=== PATIENT | female | born 1930 | race Caucasian/White ===

== ENCOUNTER 2017-02-10 16:24 | Emergency (ER) | payer OTHER, MEDICARE ==
[2017-02-10 16:37] VITALS: BP 177/86; PULSE 63; TEMP 97.7; BMI 22.4
--- NOTE | 2017-02-10 19:26 | PDOC ---
History of Present Illness <Sabrina Matthews - Last Filed: 02/10/17 19:34> - General History Source: Patient, Family Exam Limitations: No Limitations - History of Present Illness Initial Comments: 02/10/17 19:42 The patient is an 86-year-old female, with a significant past medical history of anemia, A.fib on coumadin, CHF, hypertension, hyperlipidemia, R THR, presenting with left side pain that began a couple of days ago. She states that the pain is intermittent and radiates down her left leg. Pt was advised to visit the ER by her PCP Dr. Long. Upon examination, the patient reports that she is also experiencing some nausea, but no vomiting and does have an itchy rash on her left side. She is compliant with all her medications. The patient denies any fever, chills, diarrhea, or abdominal pain. She denies any recent falls. Allergies: Tape adhesive Surgical Hx: 2 Hip Replacement surgeries, knee replacement surgery, pacemaker placement surgery. PCP: Dr. Long <Cathy Zapata - Last Filed: 02/10/17 19:54> - General Chief Complaint: Weakness Stated Complaint: PAIN, ACUTE/weakness Time Seen by Provider: 02/10/17 19:06 Past History - Past Medical History Anemia: No Cancer: Yes (breast ca rt) Cardiac Disorders: Yes (PACEMAKER/DEFIB) CVA: No COPD: No CHF: No Diabetes: No HTN: Yes Hypercholesterolemia: Yes - Surgical History Cardiac Surgery: Yes (PPM/ defib) Orthopedic Surgery: Yes (Bilateral Knees, L. Hip) - Psycho/Social/Smoking Cessation Hx Anxiety: No Suicidal Ideation: No Smoking Status: No Smoking History: Never smoked Have you smoked in the past 12 months: No Number of Cigarettes Smoked Daily: 0 If you are a former smoker, when did you quit?: 1963 Information on smoking cessation initiated: No Hx Alcohol Use: No Drug/Substance Use Hx: No Substance Use Type: None Hx Substance Use Treatment: No <Sabrina Matthews - Last Filed: 02/10/17 19:34> <Cathy Zapata - Last Filed: 02/10/17 19:54> - Past Medical History Allergies/Adverse Reactions: Allergies Allergy/AdvReac Type Severity Reaction Status Date / Time No Known Drug Allergies Allergy Unknown Verified 02/10/17 16:37 tape adhesive Allergy Uncoded 02/10/17 16:37 Home Medications: Ambulatory Orders Ascorbic Acid [Vitamin C] 500 mg PO DAILY 01/21/15 Calcium/Magnesium/Vit D3 [Calcium 500 mg Tablet] 1 each PO BID 01/21/15 Carvedilol Phosphate [Coreg Cr -] 12.5 mg PO BID 01/21/15 Cetirizine HCl 10 mg PO HS 01/21/15 Digoxin 125 mcg PO DAILY 01/21/15 Docusate Sodium [Colace -] 100 mg PO TID 01/21/15 Lisinopril [Prinivil] 20 mg PO BID 01/21/15 Biotin 2 tab PO DAILY 05/14/15 Ferrous Sulfate [Feosol] 1 tab PO DAILY 05/14/15 Sennosides [Senna -] 1 tab PO PRN PRN 05/14/15 Furosemide [Lasix -] 20 mg PO DAILY #30 tablet 05/16/15 Warfarin Sodium 5 mg PO DAILY #30 tablet 05/16/15 Oxycodone HCl/Acetaminophen [Percocet 5/325 -] 1 tab PO Q6H #20 tablet MDD 4 01/19 Valacyclovir HCl [Valtrex] 1,000 mg PO TID #21 tablet 02/10/17 Review of Systems - Review of Systems Able to Perform ROS?: Yes Comments:: 02/10/17 19:49 CONSTITUTIONAL: Present: loss of appetite Absent: fever, chills, diaphoresis, generalized weakness, malaise HEENT: Absent: rhinorrhea, nasal congestion, throat pain, throat swelling, difficulty swallowing, mouth swelling, ear pain, eye pain, visual Changes CARDIOVASCULAR: Absent: chest pain, syncope, palpitations, irregular heart rate, lightheadedness , peripheral edema RESPIRATORY: Absent: cough, shortness of breath, dyspnea with exertion, orthopnea, wheezing, stridor, hemoptysis GASTROINTESTINAL: Absent: abdominal pain, abdominal distension, nausea, vomiting, diarrhea, constipation, melena, hematochezia GENITOURINARY: Absent: dysuria, frequency, urgency, hesitancy, hematuria, flank pain, genital pain MUSCULOSKELETAL: Present: Left side pain. Absent: arthralgia, joint swelling SKIN: Present: itchy rash on left side Absent: pallor HEMATOLOGIC/IMMUNOLOGIC: Absent: easy bleeding, easy bruising, lymphadenopathy, frequent infections ENDOCRINE: Absent: unexplained weight gain, unexplained weight loss, heat intolerance, cold intolerance NEUROLOGIC: Absent: headache, focal weakness or paresthesias, dizziness, unsteady gait, seizure, mental status changes, bladder or bowel incontinence PSYCHIATRIC: Absent: anxiety, depression, suicidal or homicidal ideation, hallucinations. <Cathy Zapata - Last Filed: 02/10/17 19:54> *Physical Exam - Vital Signs Last Vital Signs Temp Pulse Resp BP Pulse Ox 97.7 F 63 18 177/86 99 02/10/17 16:35 02/10/17 16:35 02/10/17 16:35 02/10/17 16:35 02/10/17 16:35 <Sabrina Matthews - Last Filed: 02/10/17 19:34> - Vital Signs Last Vital Signs Temp Pulse Resp BP Pulse Ox 97.7 F 63 18 177/86 99 02/10/17 16:35 02/10/17 16:35 02/10/17 16:35 02/10/17 16:35 02/10/17 16:35 - Physical Exam Comments: 02/10/17 19:51 GENERAL: Well developed, well nourished. Awake and alert. No acute distress. HEENT: Normocephalic, atraumatic. PERRLA, EOMI. No conjunctival pallor. Sclera are non- icteric. Moist mucous membranes. Oropharynx is clear. NECK: Supple. Full ROM. No JVD. Carotid pulses 2+ and symmetric, without bruits. No thyromegaly. No lymphadenopathy. CARDIOVASCULAR: Regular rate and rhythm. No murmurs, rubs, or gallops. Distal pulses are 2+ and symmetric. PULMONARY: No evidence of respiratory distress. Lungs clear to auscultation bilaterally. No wheezing, rales or rhonchi. ABDOMINAL: Soft. Non-tender. Non-distended. No rebound or guarding. No organomegaly. Normoactive bowel sounds. MUSCULOSKELETAL Normal range of motion at all joints. No bony deformities or tenderness. No CVA tenderness. EXTREMITIES: No cyanosis. No clubbing. No edema. No calf tenderness. SKIN: (+)Left-sided shingles rash around dermatome t8. Warm and dry. Normal capillary refill. No jaundice. NEUROLOGICAL: Alert, awake, appropriate. PSYCHIATRIC: Cooperative. Good eye contact. Appropriate mood and affect. <Cathy Zapata - Last Filed: 02/10/17 19:54> Medical Decision Making - Medical Decision Making 02/10/17 19:35 Pt comes with left side pain that has been ongoing for a couple days, worse today. Pt has shingles rash in 1 to 2 dermatomes around T8 area. Pt has never had shingles in the past. SHe is compliant with all of her meds. SHe has no other complaints. Pt has no fever or chills. Rest of her exam is normal. Pt will be sent home with Valtrex 1000mg TID x 7 days and percocet for pain; pt will follow with PMD Ethan. <Sabrina Matthews - Last Filed: 02/10/17 19:34> *DC/Admit/Observation/Transfer - Discharge Dispostion Admit: No <Sabrina Matthews - Last Filed: 02/10/17 19:34> - Attestations Scribe Attestion: 02/10/17 19:54 Documentation prepared by Cathy Zapata, acting as neuropsychology medical consultant for Sabrina Matthews MD. <Cathy Zapata - Last Filed: 02/10/17 19:54> Diagnosis at time of Disposition: Shingles outbreak - Discharge Dispostion Disposition: HOME Condition at time of disposition: Stable - Prescriptions Prescriptions: Oxycodone HCl/Acetaminophen [Percocet 5/325 -] 1 tab PO Q6H #20 tablet MDD 4 Valacyclovir HCl [Valtrex] 1,000 mg PO TID #21 tablet - Referrals Referrals: Silvestre Long MD [Primary Care Provider] - - Patient Instructions Printed Discharge Instructions: Herpes Zoster Vaccine, Shingles (Zoster) Vaccine
[2017-02-10] MEDS ORDERED: valACYclovir HCL 1000 MG TABLET PO ONE (19:27)
--- NOTE | 2017-02-11 09:22 | EKG ---
Test Reason : Blood Pressure : / mmHG Vent. Rate : 063 BPM Atrial Rate : 357 BPM P-R Int : 000 ms QRS Dur : 168 ms QT Int : 476 ms P-R-T Axes : 074 263 064 degrees QTc Int : 487 ms Ventricular-paced rhythm Biventricular pacemaker detected ABNORMAL ECG Confirmed by MD RAMA, CORNEL ([id number]) on 02/11/2017 9:22:18 AM Referred By: Confirmed By:CORNEL ONTIVEROS MD
== END 2017-02-10 20:22 | disposition home or self-care (01) ==
LOC: JER 16:24
DX: B02.9 Zoster without complications (principal); I25.10 Atherosclerotic heart disease of native coronary artery without angina pectoris; I11.0 Hypertensive heart disease with heart failure; Z95.810 Presence of automatic (implantable) cardiac defibrillator; I48.91 Unspecified atrial fibrillation; Z79.01 Long term (current) use of anticoagulants; E78.00 Pure hypercholesterolemia, unspecified; Z96.641 Presence of right artificial hip joint
CPT/HCPCS: 81003; 93005; 93010; 99283-25

== ENCOUNTER 2017-02-15 16:07 | Emergency (ER) | payer OTHER, MEDICARE ==
[2017-02-15] MEDS ORDERED: SODIUM CHLORIDE 250 ML IV STA ×2 (16:15→17:21)
--- NOTE | 2017-02-15 16:16 | PDOC ---
History of Present Illness - History of Present Illness Initial Comments: 02/15/17 18:06 History of Present Illness: 86 y/o F with a PMHx of HTN, hypercholesterolemia, breast CA, Afib, pacemaker presents to the ED with AMS since yesterday. Patients daughter states she has become increasingly confused and weak. Patient also reports neck pain. Patient presented to the ED on 02/10 for left sided pain from shingles and was discharged on Valtrex. She was seen by PCP today, who sent her to the ED for low BP. Patient lives alone, but daughter sees her daily. Patients daughter denies history of strokes or brain injuries. PCP: Dr. Silvestre Long Review of Systems: CONSTITUTIONAL: (+) weakness. Absent: fever, chills. EYES: Absent: visual changes ENT: Absent: ear pain, sore throat CARDIOVASCULAR: (+) low BP. Absent: chest pain, palpitations RESPIRATORY: Absent: cough, SOB GI: Absent: abdominal pain, nausea, vomiting, constipation, diarrhea GENITOURINARY: Absent: dysuria, frequency, hematuria MUSCULOSKELETAL: (+) neck pain. Absent: back pain, arthralgia, myalgia SKIN: Absent: rash NEURO: (+) AMS, confusion. Absent: headache Physical Exam: GENERAL: Patient is alert and oriented but complaining of mild generalized weakness and fatigue. She is fully responsive and coherent. Orthostatics: sitting 102/60, supine 168/61. HEENT: Head is atraumatic, PERRL, fundi benign, ENT clear. NECK: Supple without bruits or nodes. CARDIOVASCULAR: 50 and regular, without murmurs, rub or gallops. Pulses full and symmetric, no JVD or edema. PULMONARY: Clear to auscultation bilaterally. ABDOMEN: Soft, non-distended, non-tender. No masses or organomegaly. EXTREMITIES: Normal ROM in all four extremities. No gross deformities. SKIN: Warm, dry. No rash NEUROLOGICAL: Cranial nerves II-XII intact. No focal sensory or motor deficits. Strength appears to be full and symmetric. <Lianet Dale - Last Filed: 02/15/17 18:28> <Jorge Luis Ibarra - Last Filed: 02/15/17 19:09> - General Chief Complaint: Weakness Stated Complaint: WEAKNESS SLIGHT CONFUSION AND PAIN TO NECK Time Seen by Provider: 02/15/17 16:13 Past History <DaleJoviLianet A - Last Filed: 02/15/17 18:28> - Past Medical History Anemia: No Cancer: Yes (breast ca rt) Cardiac Disorders: Yes (PACEMAKER/DEFIB) CVA: No COPD: No CHF: No Diabetes: No HTN: Yes Hypercholesterolemia: Yes - Surgical History Cardiac Surgery: Yes (PPM/ defib) Orthopedic Surgery: Yes (Bilateral Knees, L. Hip) - Psycho/Social/Smoking Cessation Hx Anxiety: No Suicidal Ideation: No Smoking Status: No Smoking History: Never smoked Have you smoked in the past 12 months: No Number of Cigarettes Smoked Daily: 0 If you are a former smoker, when did you quit?: 1963 Hx Alcohol Use: No Drug/Substance Use Hx: No Substance Use Type: None Hx Substance Use Treatment: No <Jorge Luis Ibarra - Last Filed: 02/15/17 19:09> - Past Medical History Allergies/Adverse Reactions: Allergies Allergy/AdvReac Type Severity Reaction Status Date / Time Latex, Natural Rubber Allergy Mild Itching Verified 02/15/17 17:21 No Known Drug Allergies Allergy Unknown Verified 02/15/17 16:09 tape adhesive Allergy Mild Itching Uncoded 02/15/17 16:10 Home Medications: Ambulatory Orders Ascorbic Acid [Vitamin C] 500 mg PO DAILY 01/21/15 Calcium/Magnesium/Vit D3 [Calcium 500 mg Tablet] 1 each PO BID 01/21/15 Carvedilol Phosphate [Coreg Cr -] 12.5 mg PO BID 01/21/15 Cetirizine HCl 10 mg PO HS 01/21/15 Digoxin 125 mcg PO DAILY 01/21/15 Docusate Sodium [Colace -] 100 mg PO TID 01/21/15 Biotin 2 tab PO DAILY 05/14/15 Ferrous Sulfate [Feosol] 1 tab PO DAILY 05/14/15 Sennosides [Senna -] 1 tab PO PRN PRN 05/14/15 Valacyclovir HCl [Valtrex] 1,000 mg PO TID #21 tablet 02/10/17 Levothyroxine [Synthroid -] 25 mcg PO DAILY 02/15/17 Sulfamethoxazole/Trimethoprim [Bactrim Ds -] 1 tab PO DAILY 02/15/17 *Physical Exam - Vital Signs Last Vital Signs Temp Pulse Resp BP Pulse Ox 98.8 F 50 L 20 168/61 96 02/15/17 16:09 02/15/17 17:11 02/15/17 16:09 02/15/17 17:11 02/15/17 16:09 <Lianet Dale - Last Filed: 02/15/17 18:28> ED Treatment Course - LABORATORY CBC & Chemistry Diagram: 02/15/17 16:38 02/15/17 16:38 - ADDITIONAL ORDERS Additional order review: Laboratory Results 02/15/17 02/15/17 02/15/17 17:36 16:38 16:38 INR 4.39 H* Sodium 134 L Potassium 5.2 H Chloride 101 Carbon Dioxide 24 Anion Gap 9 BUN 51 H Creatinine 1.6 H Creat Clearance w eGFR 30.63 Random Glucose 120 H Calcium 9.5 Total Bilirubin 0.8 AST 44 H ALT 24 Alkaline Phosphatase 57 Creatine Kinase 164 Creatine Kinase Index 4.0 CK-MB (CK-2) 6.6 H Troponin I 0.04 Total Protein 7.2 Albumin 4.1 Urine Color Yellow Urine Appearance Slightly Urine pH 5.5 Ur Specific [place] 1.015 Urine Protein Negative Urine Glucose (UA) Negative Urine Ketones Negative Urine Blood Negative Urine Nitrite Negative Urine Bilirubin Negative Urine Urobilinogen 0.2 02/15/17 16:38 RBC 4.03 MCV 94.0 MCHC 34.1 RDW 13.6 MPV 8.6 Neutrophils % 57.6 Lymphocytes % 24.4 Monocytes % 13.4 H Eosinophils % 4.1 Basophils % 0.5 - Medications Given in the ED: ED Medications Discontinued Medications Generic Name Dose Route Start Last Admin Trade Name Lola PRN Reason Stop Dose Admin Sodium Chloride 250 mls @ 500 mls/hr 02/15/17 16:15 02/15/17 17:00 Normal Saline - IV 02/15/17 16:44 500 mls/hr ASDIR STA Administration Sodium Chloride 250 mls @ 500 mls/hr 02/15/17 17:21 02/15/17 17:28 Normal Saline - IV 02/15/17 17:50 500 mls/hr ASDIR STA Administration <Lianet Dale - Last Filed: 02/15/17 18:28> - LABORATORY CBC & Chemistry Diagram: 02/15/17 16:38 02/15/17 16:38 <Jorge Luis Ibarra - Last Filed: 02/15/17 19:09> Medical Decision Making - Medical Decision Making 02/15/17 18:17 Patient significantly orthostatic, probably as a result of antihypertensive medication and diuretics. BUN 51, creatinine 1.6, a little worse than usual. After 500 mL of intravenous saline, she felt much better, was fully alert and had much more energy. Weakness and fatigue had resolved. Mental status appears to be completely intact, and her daughter, who sees her daily, agrees that she is back to baseline. INR was 4.39. She was instructed to hold Coumadin, as well as lisinopril and furosemide, until further instructions by her primary physician on Monday. She and her daughter are aware that she must be seen on Monday to further evaluate her metabolic status. She is ambulatory and in no pain or other distress upon discharge with her daughter to follow-up as directed. EKG shows a regular rhythm of 50/m, ventricular pacer with complete capture. 02/15/17 18:19 02/15/17 18:20 02/15/17 18:23 <Jorge Luis Ibarra - Last Filed: 02/15/17 19:09> *DC/Admit/Observation/Transfer - Attestations Scribe Attestion: 02/15/17 18:06 Documentation prepared by Lianet Dale, acting as medical review specialist for Jorge Luis Harris MD. <Lianet Dale - Last Filed: 02/15/17 18:28> - Discharge Dispostion Admit: No <Jorge Luis Ibarra - Last Filed: 02/15/17 19:09> Diagnosis at time of Disposition: Dehydration, Supratherapeutic INR - Discharge Dispostion Disposition: HOME Condition at time of disposition: Improved - Patient Instructions Additional Instructions: Do not take your warfarin (Coumadin), furosemide (Lasix), or lisinopril until rechecked and recommended by primary physician Dr. Long. You should see him on Monday and have blood work repeated. You are at risk of bleeding and further dehydration. You may need to restart these medications at some point in the future when your condition stabilizes and when your doctor feels it is appropriate. You will need close observation and follow-up.
[2017-02-15 16:34] VITALS: TEMP 98.8; BMI 23.0
[2017-02-15 17:10] LABS: PROTHROMBIN TIME (PATIENT) 47.8 SEC (10.2-13.0)
[2017-02-15 17:16] LABS: INR 4.39 (0.82-1.09)
[2017-02-15 17:22] LABS: BASOPHIL 0.5 % (0-2.0); EOSINOPHIL 4.1 % (0-4.5); MCHC 34.1 g/dl (32.0-36.0); MEAN PLT VOLUME 8.6 fl (7.5-11.1); NEUTROPHILS 57.6 % (42.8-82.8); PLATELET COUNT 179 K/MM3 (134-434); RDW 13.6 % (11.6-15.6); WHITE BLOOD COUNT 6.2 K/mm3 (4.0-10.8)
[2017-02-15 17:26] LABS: TROPONIN I (DFP) 0.04 ng/ml (0.03-0.50)
[2017-02-15 17:35] LABS: ALBUMIN 4.1 g/dl (3.5-5.0); ALK PHOS 57 U/L (32-92); ANION GAP 9 (8-16); BILIRUBIN,TOTAL 0.8 mg/dl (0.2-1.0); CALCIUM 9.5 mg/dl (8.4-10.2); CO2 24 mmol/L (22-28); CPK 164 IU/L (26-192); CREATININE 1.6 mg/dl (0.6-1.3); GLUCOSE,RANDOM 120 mg/dl (74-106); SGOT/AST 44 U/L (10-42); SGPT/ALT 24 U/L (10-40); TOT PROT 7.2 g/dl (6.4-8.3)
[2017-02-15 17:46] LABS: PH,URINE 5.5 (4.5-8); URINE APPEARANCE Slightly; URINE BILIRUBIN Negative (NEGATIVE); URINE BLOOD Negative (NEGATIVE); URINE GLUCOSE (UA) Negative (NEGATIVE); URINE KETONE Negative (NEGATIVE); URINE LEUK ESTERASE Negative (NEGATIVE); URINE NITRITE Negative (NEGATIVE); URINE PROTEIN Negative (NEGATIVE); URINE UROBILINOGEN 0.2 (0.2-1.0)
[2017-02-15 17:47] LABS: URINE COLOR YELLOW
[2017-02-15 18:37] VITALS: BP 154/67; PULSE 52
--- NOTE | 2017-02-16 13:09 | EKG ---
Test Reason : Blood Pressure : / mmHG Vent. Rate : 050 BPM Atrial Rate : 040 BPM P-R Int : 000 ms QRS Dur : 162 ms QT Int : 484 ms P-R-T Axes : 000 252 070 degrees QTc Int : 441 ms Ventricular-paced rhythm Biventricular pacemaker detected Underlying rhythm is coarse atrial fibrillation ABNORMAL ECG WHEN COMPARED WITH ECG OF 10-FEB-2017 16:35, VENT. RATE HAS DECREASED BY 13 BPM Confirmed by HOOD REED MD ([id number] on 02/16/2017 1:08:48 PM Referred By: MD GUIDRY Confirmed By:HOOD REED MD
== END 2017-02-15 19:24 | disposition home or self-care (01) ==
LOC: FER 16:07
PROC: 3E0337Z Introduction of Electrolytic and Water Balance Substance into Peripheral Vein, Percutaneous Approach (ICD-10-PCS; principal; 2017-02-15)
DX: E86.0 Dehydration (principal); R79.1 Abnormal coagulation profile; I10 Essential (primary) hypertension; E78.00 Pure hypercholesterolemia, unspecified; Z85.3 Personal history of malignant neoplasm of breast; I48.91 Unspecified atrial fibrillation; Z95.810 Presence of automatic (implantable) cardiac defibrillator; Z91.040 Latex allergy status
CPT/HCPCS: 36415; 70450-TC; 71010-TC; 80053; 81003; 82553; 84484; 85025; 85610; 93005; 99285-25

== ENCOUNTER 2018-08-15 11:07 | Inpatient (IN) | payer OTHER, MEDICARE ==
[2018-08-14 11:53] VITALS: BMI 21.2
[2018-08-15 11:45] LABS: INR 1.52 (0.83-1.09)
[2018-08-15] MEDS ORDERED: BENZOIN TINCTURE SWABSTICK TP ONE (12:27)
[2018-08-15] MEDS ORDERED: MINERAL OIL 25 ML OIL ONE (12:27)
[2018-08-15] MEDS ORDERED: BACITRACIN 15 GM TUBE TOPICAL OINTMENT ONE ×2 (12:27→14:24)
[2018-08-15] MEDS ORDERED: DEXAMETHASONE SOD PHOSPHATE 4 MG/1 ML VIAL ONE ×2 (12:41→14:45)
[2018-08-15] MEDS ORDERED: ONDANSETRON 4 MG/2 ML VIAL ONE ×2 (12:41→14:45)
[2018-08-15] MEDS ORDERED: LIDOCAINE HCL/PF 2% SDV 5ML VIAL ONE (12:41)
[2018-08-15] MEDS ORDERED: DESFLURANE GAS 240 ML BOTTLE IH ONE (13:05)
[2018-08-15] MEDS ORDERED: SEVOFLURANE 250 ML BTL ONE (13:05)
[2018-08-15] MEDS ORDERED: SODIUM CHLORIDE 0.9% P/F 10 ML VIAL IJ ONE (13:27)
[2018-08-15] MEDS ORDERED: ceFAZolin SODIUM 1 GM VIAL ONE (13:27)
[2018-08-15] MEDS ORDERED: ceFAZolin SODIUM 1 GM VIAL IVPB ONE (13:29)
[2018-08-15] MEDS ORDERED: ONDANSETRON 4 MG/2 ML VIAL IVPUSH PRN (13:36)
[2018-08-15] MEDS ORDERED: PROMETHAZINE HCL 25 MG/1 ML VIAL IVPB PRN (13:36)
[2018-08-15] MEDS ORDERED: LACTATED RINGERS SOLUTION 1,000 ML IV SCH (13:45)
[2018-08-15] MEDS ORDERED: LIDOCAINE 1%-EPI 1:100,000 30 ML MDV IJ ONE (13:49)
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
[2018-08-15] MEDS ORDERED: SENNOSIDES 8.6MG TABLET (FP) PO PRN (18:30)
[2018-08-15] MEDS ORDERED: ACETAMINOPHEN 325 MG TABLET (FP) PO PRN (19:00)
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
[2018-08-15 19:40] LABS: BASO % 0.6 % (0-2.0); EOS % 0.6 % (0-4.5); HEMATOCRIT 35.4 % (32.4-45.2); LYMPH % 10.3 % (8-40); MCH 32.5 pg (25.7-33.7); MCHC 33.9 g/dl (32.0-36.0); MEAN CELL VOLUME 95.7 fl (80-96); MEAN PLT VOLUME 8.3 fl (7.5-11.1); MONO % 2.7 % (3.8-10.2); NEUT % 85.8 % (42.8-82.8); PLATELET COUNT 167 K/MM3 (134-434); RBC 3.69 M/mm3 (3.60-5.2); RDW 16.2 % (11.6-15.6); WHITE BLOOD COUNT 4.5 K/mm3 (4.0-10.0)
[2018-08-15 20:08] LABS: ALK PHOS 110 U/L (45-117); ANION GAP 6 MMOL/L (8-16); BILIRUBIN,TOTAL 0.5 mg/dL (0.2-1); BLOOD UREA NITROGEN 34 mg/dL (7-18); CALCIUM 8.7 mg/dL (8.5-10.1); CHLORIDE 105 mmol/L (98-107); CO2 30 mmol/L (21-32); GLUCOSE,RANDOM 137 mg/dL (74-106); MAGNESIUM 2.1 mg/dL (1.8-2.4); PHOSPHOROUS 3.9 mg/dL (2.5-4.9); POTASSIUM 4.3 mmol/L (3.5-5.1); SGOT/AST 25 U/L (15-37); SGPT/ALT 22 U/L (13-61); SODIUM 141 mmol/L (136-145); TOT PROT 6.3 g/dl (6.4-8.2)
[2018-08-15] MEDS ORDERED: CARVEDILOL 25 MG TABLET (FP) PO SCH (22:00)
[2018-08-15] MEDS: MUPIROCIN 2% TOPICAL OINTMENT 22 GM TUBE TP SCH (22:00)
[2018-08-15] MEDS: LISINOPRIL 5 MG TABLET (FP) PO SCH (22:18)
[2018-08-15] MEDS: CARVEDILOL 25 MG TABLET (FP) PO SCH (22:18)
[2018-08-16] MEDS: LEVOTHYROXINE NA 25 MCG TABLET (FP) PO SCH (06:45)
[2018-08-16 07:40] LABS: BASO % 0.3 % (0-2.0); EOS % 0.2 % (0-4.5); HEMATOCRIT 30.5 % (32.4-45.2); HEMOGLOBIN 10.3 GM/dL (10.7-15.3); LYMPH % 13.1 % (8-40); MCH 32.1 pg (25.7-33.7); MCHC 33.8 g/dl (32.0-36.0); MEAN CELL VOLUME 95.2 fl (80-96); MEAN PLT VOLUME 8.1 fl (7.5-11.1); MONO % 11.2 % (3.8-10.2); NEUT % 75.2 % (42.8-82.8); PLATELET COUNT 160 K/MM3 (134-434); RBC 3.21 M/mm3 (3.60-5.2); WHITE BLOOD COUNT 5.2 K/mm3 (4.0-10.0)
[2018-08-16 07:56] LABS: INR 1.32 (0.83-1.09); PROTHROMBIN TIME (PATIENT) 15.6 SEC (9.7-13.0)
[2018-08-16 08:08] LABS: ALBUMIN 2.3 g/dl (3.4-5.0); ALK PHOS 84 U/L (45-117); ANION GAP 3 MMOL/L (8-16); BILIRUBIN,TOTAL 0.4 mg/dL (0.2-1); BLOOD UREA NITROGEN 44 mg/dL (7-18); CALCIUM 8.2 mg/dL (8.5-10.1); CHLORIDE 106 mmol/L (98-107); CO2 30 mmol/L (21-32); CREATININE 0.9 mg/dL (0.55-1.3); GLUCOSE,RANDOM 96 mg/dL (74-106); MAGNESIUM 2.1 mg/dL (1.8-2.4); PHOSPHOROUS 3.8 mg/dL (2.5-4.9); POTASSIUM 4.4 mmol/L (3.5-5.1); SGOT/AST 17 U/L (15-37); SGPT/ALT 16 U/L (13-61); SODIUM 140 mmol/L (136-145); TOT PROT 5.2 g/dl (6.4-8.2)
--- NOTE | 2018-08-16 09:50 | PN ---
Progress Note (short form) - Note Progress Note: Hospitalist to document today. I would ask Dr. Ngo if it is acceptable to start heparin until Coumadin can be resumed due to A. Fib.
[2018-08-16] MEDS ORDERED: PATIENT'S OWN MEDICATION (NON-FORMULARY) (Biotin [Biotin] 5,000 MCG) PO SCH (10:00)
[2018-08-16] MEDS: MUPIROCIN 2% TOPICAL OINTMENT 22 GM TUBE TP SCH ×3 (10:10→21:32)
[2018-08-16] MEDS: CARVEDILOL 25 MG TABLET (FP) PO SCH ×2 (10:28→21:31)
[2018-08-16] MEDS: DOCUSATE SODIUM 100 MG CAPSULE (FP) PO SCH ×2 (10:28→21:31)
[2018-08-16] MEDS: LORATADINE 10 MG TABLET PO SCH (10:28)
[2018-08-16] MEDS: LISINOPRIL 5 MG TABLET (FP) PO SCH ×2 (10:30→21:31)
[2018-08-16] MEDS: ASCORBIC ACID 500 MG TABLET (FP) PO SCH (10:30)
[2018-08-16] MEDS: GABAPENTIN 300 MG CAPSULE (FP) PO SCH (10:30)
[2018-08-16] MEDS: CHOLECALCIFEROL (VIT D3) 1,000 UNIT (25 MCG) TABLET PO SCH (10:31)
[2018-08-16] MEDS: COLLAGENASE CLOSTRIDIUM HIST. 30 GRAMS TUBE TP SCH (11:53)
[2018-08-16] MEDS: SILVER SULFADIAZINE 1% TOP CREAM 50 GM JAR TP SCH (11:53)
--- NOTE | 2018-08-16 15:12 | PN ---
Physical Exam: SUBJECTIVE: Patient seen and examined, denies any leg pain, dyspnea, dizziness, bleeding or new concerns. Feels well. OBJECTIVE: Vital Signs Period Temp Pulse Resp BP Sys/Alvares Pulse Ox Last 24 Hr 97.6 F-99.4 F 50-60 10-20 113-176/50-89 98-100 Intake & Output 08/13/18 08/14/18 08/15/18 08/16/18 23:59 23:59 23:59 23:59 Intake Total 1160 260 Output Total 10 Balance 1150 260 Weight 140 lb 163 lb GENERAL: sitting in bed in no acute distress Chest: CTAB, no rales or wheezing Neck: soft, supple, no JVD Abdomen:Soft, NT, ND, positive bowel sounds Extremities: LLE wound with vac, left thigh wound with blood soaked dressing, no active bleeding noted, RLE wound with no active bleed or discharge, positive varicosities, warm and well perfused Skin: mild pallor Laboratory Results - last 24 hr 08/15/18 08/15/18 08/16/18 16:30 16:30 06:00 WBC 4.5 5.2 RBC 3.69 3.21 L Hgb 12.0 10.3 L Hct 35.4 30.5 L MCV 95.7 95.2 MCH 32.5 32.1 MCHC 33.9 33.8 RDW 16.2 H 16.0 H Plt Count 167 160 MPV 8.3 8.1 Absolute Neuts (auto) 3.9 4.0 Neutrophils % 85.8 H D 75.2 Lymphocytes % 10.3 D 13.1 D Monocytes % 2.7 L 11.2 H D Eosinophils % 0.6 D 0.2 Basophils % 0.6 0.3 Nucleated RBC % 0 0 PT with INR INR Sodium 141 Potassium 4.3 Chloride 105 Carbon Dioxide 30 Anion Gap 6 L BUN 34 H Creatinine 1.0 Creat Clearance w eGFR 52.57 Random Glucose 137 H Calcium 8.7 Phosphorus 3.9 Magnesium 2.1 Total Bilirubin 0.5 AST 25 ALT 22 Alkaline Phosphatase 110 Total Protein 6.3 L Albumin 3.0 L 08/16/18 08/16/18 06:00 06:00 WBC RBC Hgb Hct MCV MCH MCHC RDW Plt Count MPV Absolute Neuts (auto) Neutrophils % Lymphocytes % Monocytes % Eosinophils % Basophils % Nucleated RBC % PT with INR 15.60 H INR 1.32 H Sodium 140 Potassium 4.4 Chloride 106 Carbon Dioxide 30 Anion Gap 3 L BUN 44 H Creatinine 0.9 Creat Clearance w eGFR 59.37 Random Glucose 96 Calcium 8.2 L Phosphorus 3.8 Magnesium 2.1 Total Bilirubin 0.4 AST 17 ALT 16 Alkaline Phosphatase 84 Total Protein 5.2 L Albumin 2.3 L Active Medications Home Medications Medication Instructions Recorded Ascorbic Acid [Vitamin C] 500 mg PO DAILY 01/21/15 Calcium/Magnesium/Vit D3 [Calcium 1 each PO BID 01/21/15 500 mg Tablet] Carvedilol Phosphate [Coreg Cr -] 25 mg PO BID 01/21/15 Biotin 5,000 mcg PO DAILY 05/14/15 Sennosides [Senna -] 1 tab PO PRN PRN 05/14/15 Levothyroxine [Synthroid -] 0.025 mcg PO DAILY 02/15/17 Sulfamethoxazole/Trimethoprim 1 tab PO DAILY 02/15/17 [Bactrim Ds -] Collagenase Clostridium Hist. 1 applic TP DAILY 7 Days #7 applic 08/01/18 [Santyl -] Mupirocin Ointment [Bactroban 2% 1 tube TP BID 14 Days #1 applic NS 08/01/18 Ointment -] Silver Sulfadiazine 1% Top Cr 1 applic TP DAILY 7 Days #1 jar 08/01/18 [Silvadene -] levoFLOXacin [Levaquin -] 500 mg PO DAILY #14 tablet 08/01/18 Cetirizine HCl [Zyrtec -] 10 mg PO DAILY 08/14/18 Cholecalciferol (Vitamin D3) 1,000 unit PO DAILY 08/14/18 [Vitamin D3 -] Digoxin [Lanoxin -] 0.125 mg PO ASDIR 08/14/18 Furosemide [Lasix -] 20 mg PO ASDIR 08/14/18 Furosemide [Lasix -] 40 mg PO ASDIR 08/14/18 Gabapentin [Neurontin -] 300 mg PO DAILY 08/14/18 Lisinopril [Zestril] 2.5 mg PO BID 08/14/18 Warfarin Na [Coumadin Protocol] 1 each PO ASDIR 08/14/18 Active Medications Acetaminophen (Tylenol -) 650 mg PO Q4H PRN PRN Reason: PAIN LEVEL 1-5 Ascorbic Acid (Vitamin C -) 500 mg PO DAILY [facility] Last Admin: 08/16/18 10:30 Dose: 500 mg Carvedilol (Coreg -) 25 mg PO BID [facility] Last Admin: 08/16/18 10:28 Dose: 25 mg Cholecalciferol (Vitamin D3 -) 1,000 unit PO DAILY [facility] Last Admin: 08/16/18 10:31 Dose: 1,000 unit Collagenase (Santyl -) 1 applic TP DAILY [facility]; Protocol Last Admin: 08/16/18 11:53 Dose: Not Given Digoxin (Lanoxin -) 0.125 mg PO Q48H [facility] Docusate Sodium (Colace -) 100 mg PO BID [facility] Last Admin: 08/16/18 10:28 Dose: 100 mg Furosemide (Lasix -) 40 mg PO DAILY [facility] Gabapentin (Neurontin -) 300 mg PO DAILY [facility] Last Admin: 08/16/18 10:30 Dose: 300 mg Levothyroxine Sodium (Synthroid -) 25 mcg PO DAILY@0700 [facility] Last Admin: 08/16/18 06:45 Dose: 25 mcg Lisinopril (Prinivil) 2.5 mg PO BID [facility] Last Admin: 08/16/18 10:30 Dose: 2.5 mg Loratadine (Claritin -) 10 mg PO DAILY [facility] Last Admin: 08/16/18 10:28 Dose: 10 mg Mupirocin (Bactroban 2% Ointment -) 1 applic TP BID [facility] Last Admin: 08/16/18 12:00 Dose: Not Given Ondansetron HCl (Zofran Injection) 4 mg IVPUSH Q6H PRN PRN Reason: NAUSEA AND/OR VOMITING Promethazine HCl (Phenergan Injection -) 12.5 mg IVPB Q6H PRN PRN Reason: NAUSEA-FOR RESCUE AFTER 15 MIN Senna (Senna -) 1 tab PO DAILY PRN PRN Reason: CONSTIPATION Silver Sulfadiazine (Silvadene -) 1 applic TP DAILY [facility] Last Admin: 08/16/18 11:53 Dose: Not Given ASSESSMENT/PLAN: 87 yof with PMHx of afib on coumadin, chronic systolic HF (EF 45%), s/p PPM/ICD , herpes, HTN, CKD, with 3rd degree wiseman bilateral lower extremities s/p excisional debridement and graft/wound vac placement -Bilateral lower extremities 3rd degree wiseman s/p excisional debridement with skin grafting and LLE wound vac placement -Acute anemia, suspect from surgical blood loss and wound oozing -Afib on coumadin -Chronic systolic HF EF 45% -s/p PPM/ICD -HTN -Herpes Shingles -CKD Plan: Wound care/Wound vac care per Dr. Ngo Discuss with Dr. Ngo when ok to start heparin. resume lasix at 40 mg daily for now. Continue coreg/digoxin/lisinopril. Continue levothyroxine/gabapentin. DVTPPX per surgery PT eval. Dispo pending wound management and surgical plans. May need SNF if d/lea with wound vac. discussed with CM Plan discussed with patient and son at bedside in detail, all questions answered. Visit type - Emergency Visit Emergency Visit: No - New Patient This patient is new to me today: No - Critical Care Critical Care patient: No - Discharge Referral Referred to [facility] Med P.C.: No
[2018-08-17] MEDS: LEVOTHYROXINE NA 25 MCG TABLET (FP) PO SCH (06:57)
[2018-08-17 07:39] LABS: HEMATOCRIT 33.2 % (32.4-45.2); HEMOGLOBIN 11.3 GM/dL (10.7-15.3); MEAN CELL VOLUME 97.1 fl (80-96); PLATELET COUNT 163 K/MM3 (134-434); RBC 3.42 M/mm3 (3.60-5.2); RDW 16.3 % (11.6-15.6); WHITE BLOOD COUNT 5.9 K/mm3 (4.0-10.0)
[2018-08-17 07:54] LABS: INR 1.44 (0.83-1.09)
--- NOTE | 2018-08-17 09:47 | PN ---
Progress Note (short form) - Note Progress Note: Hospitalist to document today. 5 days off anticoagulation and postop with A.Fib; must consider at least IV heparin today. 5 days no BM: Miralax Await F/U Surgeon
[2018-08-17] MEDS ORDERED: FUROSEMIDE 40 MG TABLET (FP) PO SCH ×2 (10:00→12:02)
[2018-08-17] MEDS: LORATADINE 10 MG TABLET PO SCH ×2 (10:39→10:55)
[2018-08-17] MEDS: LISINOPRIL 5 MG TABLET (FP) PO SCH ×2 (10:39→22:34)
[2018-08-17] MEDS: CARVEDILOL 25 MG TABLET (FP) PO SCH ×2 (10:39→22:34)
[2018-08-17] MEDS: GABAPENTIN 300 MG CAPSULE (FP) PO SCH (10:40)
[2018-08-17] MEDS: DOCUSATE SODIUM 100 MG CAPSULE (FP) PO SCH ×2 (10:41→22:34)
[2018-08-17] MEDS: ASCORBIC ACID 500 MG TABLET (FP) PO SCH (10:41)
[2018-08-17] MEDS: CHOLECALCIFEROL (VIT D3) 1,000 UNIT (25 MCG) TABLET PO SCH (10:41)
[2018-08-17] MEDS: POLYETHYLENE GLYCOL 3350 119 GM BTL PO SCH (10:41)
[2018-08-17] MEDS: MUPIROCIN 2% TOPICAL OINTMENT 22 GM TUBE TP SCH ×2 (10:55→22:34)
--- NOTE | 2018-08-17 12:06 | PN ---
Physical Exam: SUBJECTIVE: Patient seen and examined, no pain or concerns. No dyspnea, tolerating diet well. OBJECTIVE: Vital Signs Period Temp Pulse Resp BP Sys/Alvares Pulse Ox Last 24 Hr 97.7 F-99.4 F 50-55 18-20 113-161/51-75 98 Intake & Output 08/14/18 08/15/18 08/16/18 08/17/18 23:59 23:59 23:59 23:59 Intake Total 1160 270 10 Output Total 10 Balance 1150 270 10 Weight 140 lb 163 lb 153 lb 12.8 oz Telemetry: V-paced rhythm GENERAL: The patient is awake, alert, and fully oriented, in no acute distress. HEAD: Normal with no signs of trauma. EYES: PERRL, extraocular movements intact, sclera anicteric, conjunctiva clear. No ptosis. ENT: Ears normal, nares patent, oropharynx clear without exudates, moist mucous membranes. NECK: Trachea midline, full range of motion, supple. LUNGS: Breath sounds equal, clear to auscultation bilaterally, no wheezes, no crackles, no accessory muscle use. HEART: Regular rate and rhythm, S1, S2 ABDOMEN: Soft, nontender, nondistended, normoactive bowel sounds, no guarding, no rebound EXTREMITIES: Right leg wound with no active bleed or discharge, clean dressing, LLE wounds -lower 1/3rd with wound vac, no active bleed or leak, left thigh, blood soaked dressing, no active bleeding or discharge noted, positive varicositis PSYCH: Normal mood, normal affect. SKIN: Warm, dry, normal turgor, no rashes or lesions noted Laboratory Results - last 24 hr 08/17/18 08/17/18 06:50 06:50 WBC 5.9 RBC 3.42 L Hgb 11.3 Hct 33.2 MCV 97.1 H MCH 33.0 MCHC 34.0 RDW 16.3 H Plt Count 163 MPV 8.0 PT with INR 17.00 H INR 1.44 H Active Medications Generic Name Dose Route Start Last Admin Trade Name Freq PRN Reason Stop Dose Admin Acetaminophen 650 mg 08/15/18 19:00 Tylenol - PO Q4H PRN PAIN LEVEL 1-5 Ascorbic Acid 500 mg 08/16/18 10:00 08/17/18 10:41 Vitamin C - PO 500 mg DAILY [facility] Administration Carvedilol 25 mg 08/15/18 22:00 08/17/18 10:39 Coreg - PO 25 mg BID [facility] Administration Cholecalciferol 1,000 unit 08/16/18 10:00 08/17/18 10:41 Vitamin D3 - PO 1,000 unit DAILY [facility] Administration Collagenase 1 applic 08/16/18 10:00 08/16/18 11:53 Santyl - TP Not Given DAILY [facility] Protocol Digoxin 0.125 mg 08/17/18 10:00 Lanoxin - PO Q48H [facility] Docusate Sodium 100 mg 08/16/18 10:00 08/17/18 10:41 Colace - PO 100 mg BID [facility] Administration Furosemide 20 mg 08/17/18 12:02 Lasix - PO DAILY [facility] Gabapentin 300 mg 08/16/18 10:00 08/17/18 10:40 Neurontin - PO 300 mg DAILY [facility] Administration Levothyroxine Sodium 25 mcg 08/16/18 07:00 08/17/18 06:57 Synthroid - PO 25 mcg DAILY@0700 [facility] Administration Lisinopril 2.5 mg 08/15/18 22:00 08/17/18 10:39 Prinivil PO 2.5 mg BID [facility] Administration Loratadine 10 mg 08/16/18 10:00 08/17/18 10:39 Claritin - PO 10 mg DAILY [facility] Administration Mupirocin 1 applic 08/15/18 22:00 08/16/18 21:32 Bactroban 2% Ointment - TP Not Given BID [facility] Ondansetron HCl 4 mg 08/15/18 13:36 Zofran Injection IVPUSH Q6H PRN NAUSEA AND/OR VOMITING Polyethylene Glycol 17 gm 08/17/18 10:00 08/17/18 10:41 Miralax (For Daily Use) - PO 17 grams DAILY [facility] Administration Promethazine HCl 12.5 mg 08/15/18 13:36 Phenergan Injection - IVPB Q6H PRN NAUSEA-FOR RESCUE AFTER 15 MIN Senna 1 tab 08/15/18 18:30 Senna - PO DAILY PRN CONSTIPATION Silver Sulfadiazine 1 applic 08/16/18 10:00 08/16/18 11:53 Silvadene - TP Not Given DAILY [facility] ASSESSMENT/PLAN: 87 yof with PMHx of afib on coumadin, chronic systolic HF (EF 45%), s/p PPM/ICD , herpes, HTN, CKD, with 3rd degree wiseman bilateral lower extremities s/p excisional debridement and graft/wound vac placement -Bilateral lower extremities 3rd degree wiseman s/p excisional debridement with skin grafting and LLE wound vac placement -Acute anemia, suspect from surgical blood loss and wound oozing -Afib on coumadin -Chronic systolic HF EF 45% -s/p PPM/ICD -HTN -Herpes Shingles -CKD Plan: Wound care/Wound vac care per Dr. Jeni sandra. Discussed with Dr. Ngo, will follow up recs to resume AC. BUN rising, change lasix to 20 mg daily. Continue coreg/digoxin/lisinopril. Continue levothyroxine/gabapentin. DVTPPX per surgery PT eval. Dispo pending wound management and surgical plans. May need SNF if d/lea with wound vac. discussed with CM Plan discussed with patient in detail, all questions answered. d.c telemetry. Visit type - Emergency Visit Emergency Visit: No - New Patient This patient is new to me today: No - Critical Care Critical Care patient: No - Discharge Referral Referred to [facility] Med P.C.: No
[2018-08-17] MEDS: DIGOXIN 0.125 MG TABLET (FP) PO SCH (14:57)
[2018-08-17] MEDS: COLLAGENASE CLOSTRIDIUM HIST. 30 GRAMS TUBE TP SCH (14:57)
[2018-08-17] MEDS: SILVER SULFADIAZINE 1% TOP CREAM 50 GM JAR TP SCH (14:58)
[2018-08-17] MEDS ORDERED: HEPARIN NA (PORCINE) 5,000 UNITS/ML 1ML VIAL IVPUSH PRN ×2 (14:59)
[2018-08-17] MEDS: HEPARIN SOD,PORK IN 0.45% NACL 25,000 UNIT/500 ML INFUS.BAG IVPB SCH (16:39)
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
[2018-08-17] MEDS: WARFARIN NA 5 MG TABLET (UD) PO SCH (17:56)
[2018-08-17] MEDS ORDERED: WARFARIN NA 5 MG TABLET (UD) PO ONE (18:00)
[2018-08-17] MEDS ORDERED: ENOXAPARIN NA (PORCINE) 80 MG/0.8 ML DISP.SYRIN SQ SCH (22:00)
[2018-08-18] MEDS: LEVOTHYROXINE NA 25 MCG TABLET (FP) PO SCH (06:41)
[2018-08-18 07:17] LABS: HEMOGLOBIN 10.9 GM/dL (10.7-15.3); INR 1.26 (0.83-1.09); MCH 32.3 pg (25.7-33.7); MEAN CELL VOLUME 95.2 fl (80-96); MEAN PLT VOLUME 8.2 fl (7.5-11.1); PLATELET COUNT 176 K/MM3 (134-434); PROTHROMBIN TIME (PATIENT) 14.9 SEC (9.7-13.0); RBC 3.36 M/mm3 (3.60-5.2); RDW 15.7 % (11.6-15.6); WHITE BLOOD COUNT 5.9 K/mm3 (4.0-10.0)
[2018-08-18] MEDS: LORATADINE 10 MG TABLET PO SCH (10:40)
[2018-08-18] MEDS: COLLAGENASE CLOSTRIDIUM HIST. 30 GRAMS TUBE TP SCH (10:40)
[2018-08-18] MEDS: GABAPENTIN 300 MG CAPSULE (FP) PO SCH ×2 (10:40→11:02)
[2018-08-18] MEDS: CARVEDILOL 25 MG TABLET (FP) PO SCH ×2 (10:45→22:20)
[2018-08-18] MEDS: POLYETHYLENE GLYCOL 3350 119 GM BTL PO SCH (10:45)
[2018-08-18] MEDS: MUPIROCIN 2% TOPICAL OINTMENT 22 GM TUBE TP SCH ×2 (10:50→22:26)
[2018-08-18] MEDS: CHOLECALCIFEROL (VIT D3) 1,000 UNIT (25 MCG) TABLET PO SCH (10:50)
[2018-08-18] MEDS: SILVER SULFADIAZINE 1% TOP CREAM 50 GM JAR TP SCH (10:50)
[2018-08-18] MEDS: DOCUSATE SODIUM 100 MG CAPSULE (FP) PO SCH ×3 (10:55→22:20)
[2018-08-18] MEDS: LISINOPRIL 5 MG TABLET (FP) PO SCH ×2 (11:00→22:21)
[2018-08-18] MEDS: ASCORBIC ACID 500 MG TABLET (FP) PO SCH (11:00)
--- NOTE | 2018-08-18 13:01 | PN ---
Physical Exam: SUBJECTIVE: Patient seen and examined, no leg pain or complaints. OBJECTIVE: Vital Signs Period Temp Pulse Resp BP Sys/Alvares Pulse Ox Last 24 Hr 97.7 F-98.6 F 50-50 20-20 117-165/53-79 97-97 Intake & Output 08/15/18 08/16/18 08/17/18 08/18/18 23:59 23:59 23:59 23:59 Intake Total 1160 270 270 176 Output Total 10 Balance 1150 270 270 176 Weight 163 lb 153 lb 12.8 oz 155 lb GENERAL: The patient is awake, alert, and fully oriented, in no acute distress. HEAD: Normal with no signs of trauma. EYES: PERRL, extraocular movements intact, sclera anicteric, conjunctiva clear. No ptosis. ENT: Ears normal, nares patent, oropharynx clear without exudates, moist mucous membranes. NECK: Trachea midline, full range of motion, supple. LUNGS: Breath sounds equal, clear to auscultation bilaterally, no wheezes, no crackles, no accessory muscle use. HEART: Regular rate and rhythm, S1, S2 ABDOMEN: Soft, nontender, nondistended, normoactive bowel sounds, no guarding, no rebound EXTREMITIES: Right leg wound with no active bleed or discharge, clean dressing, LLE wounds -lower 1/3rd with wound vac, no active bleed or leak, left thigh, new dressing with some blood soaking, no active bleeding or discharge noted, positive varicosities PSYCH: Normal mood, normal affect. SKIN: Warm, dry, normal turgor, no rashes or lesions noted Laboratory Results - last 24 hr 08/17/18 08/17/18 08/18/18 16:30 22:50 06:35 WBC 5.9 RBC 3.36 L Hgb 10.9 Hct 32.0 L MCV 95.2 MCH 32.3 MCHC 34.0 RDW 15.7 H Plt Count 176 MPV 8.2 PT with INR INR PTT (Actin FS) 29.9 51.1 H 08/18/18 08/18/18 08/18/18 06:35 06:35 08:20 WBC RBC Hgb Hct MCV MCH MCHC RDW Plt Count MPV PT with INR 14.90 H Cancelled INR 1.26 H Cancelled PTT (Actin FS) 53.7 H Active Medications Generic Name Dose Route Start Last Admin Trade Name Freq PRN Reason Stop Dose Admin Acetaminophen 650 mg 08/15/18 19:00 Tylenol - PO Q4H PRN PAIN LEVEL 1-5 Ascorbic Acid 500 mg 08/16/18 10:00 08/18/18 11:00 Vitamin C - PO 500 mg DAILY [facility] Administration Carvedilol 25 mg 08/15/18 22:00 08/18/18 10:45 Coreg - PO 25 mg BID [facility] Administration Cholecalciferol 1,000 unit 08/16/18 10:00 08/18/18 10:50 Vitamin D3 - PO 1,000 unit DAILY [facility] Administration Collagenase 1 applic 08/16/18 10:00 08/18/18 10:40 Santyl - TP 1 applic DAILY [facility] Administration Protocol Digoxin 0.125 mg 08/17/18 10:00 08/17/18 14:57 Lanoxin - PO Not Given Q48H [facility] Docusate Sodium 100 mg 08/16/18 10:00 08/18/18 11:00 Colace - PO 100 mg BID [facility] Administration Furosemide 20 mg 08/17/18 12:02 08/18/18 11:01 Lasix - PO 20 mg DAILY [facility] Administration Gabapentin 300 mg 08/16/18 10:00 08/18/18 11:02 Neurontin - PO 300 mg DAILY [facility] Administration Heparin Sodium (Porcine) 1,000 unit 08/17/18 14:59 Heparin - IVPUSH PRN PRN Heparin Heparin Sodium (Porcine) 5,000 unit 08/17/18 14:59 Heparin - IVPUSH PRN PRN Heparin HEPARIN SOD,PORK IN 0.45% NACL 25,000 unit in 500 mls @ 16 mls/hr 08/17/18 15: 00 08/17/18 23:00 Heparin-1/2ns 25,000 Units/500 IVPB 800 units/hr TITR ANANT 16 mls/hr Titration Protocol 800 UNITS/HR Levothyroxine Sodium 25 mcg 08/16/18 07:00 08/18/18 06:41 Synthroid - PO 25 mcg DAILY@0700 [facility] Administration Lisinopril 2.5 mg 08/15/18 22:00 08/18/18 11:00 Prinivil PO 2.5 mg BID [facility] Administration Loratadine 10 mg 08/16/18 10:00 08/18/18 10:40 Claritin - PO 10 mg DAILY ANANT Administration Mupirocin 1 applic 08/15/18 22:00 08/18/18 10:50 Bactroban 2% Ointment - TP 1 applic BID ANANT Administration Ondansetron HCl 4 mg 08/15/18 13:36 Zofran Injection IVPUSH Q6H PRN NAUSEA AND/OR VOMITING Polyethylene Glycol 17 gm 08/17/18 10:00 08/18/18 10:45 Miralax (For Daily Use) - PO 17 grams DAILY ANANT Administration Promethazine HCl 12.5 mg 08/15/18 13:36 Phenergan Injection - IVPB Q6H PRN NAUSEA-FOR RESCUE AFTER 15 MIN Senna 1 tab 08/15/18 18:30 Senna - PO DAILY PRN CONSTIPATION Silver Sulfadiazine 1 applic 08/16/18 10:00 08/18/18 10:50 Silvadene - TP 1 applic DAILY ANANT Administration Warfarin Sodium 5 mg 08/17/18 18:00 08/17/18 17:56 Coumadin - PO 5 mg DAILY@1800 ANANT Administration ASSESSMENT/PLAN: 87 yof with PMHx of afib on coumadin, chronic systolic HF (EF 45%), s/p PPM/ICD , herpes, HTN, CKD, with 3rd degree wiseman bilateral lower extremities s/p excisional debridement and graft/wound vac placement -Bilateral lower extremities 3rd degree wiseman s/p excisional debridement with skin grafting and LLE wound vac placement -Acute anemia, suspect from surgical blood loss and wound oozing -Afib on coumadin -Chronic systolic HF EF 45% -s/p PPM/ICD -HTN -Herpes Shingles -CKD Plan: Wound care/Wound vac care per Dr. Ngo hangelica sandra. Discussed with Dr. Ngo, heparin/coumadin bridging, daily CBC/INR. Lasix 40 mg daily. Continue coreg/digoxin/lisinopril/levothyroxine/gabapentin. DVTPPX as above PT eval. Dispo pending wound management and surgical plans. May need SNF if d/lea with wound vac. discussed with patient and nursing, all questions answered Visit type - Emergency Visit Emergency Visit: No - New Patient This patient is new to me today: No - Critical Care Critical Care patient: No - Discharge Referral Referred to [facility] No
[2018-08-18] MEDS: WARFARIN NA 5 MG TABLET (UD) PO SCH (18:17)
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
[2018-08-18] MEDS: HEPARIN SOD,PORK IN 0.45% NACL 25,000 UNIT/500 ML INFUS.BAG IVPB SCH (22:20)
[2018-08-19] MEDS ORDERED: PT OWN MED DRAWER 7, Y5N ONE (00:26)
[2018-08-19] MEDS: LEVOTHYROXINE NA 25 MCG TABLET (FP) PO SCH (06:03)
[2018-08-19 06:52] LABS: HEMATOCRIT 29.7 % (32.4-45.2); HEMOGLOBIN 10.2 GM/dL (10.7-15.3); MCH 32.7 pg (25.7-33.7); MCHC 34.4 g/dl (32.0-36.0); MEAN PLT VOLUME 8.1 fl (7.5-11.1); PLATELET COUNT 176 K/MM3 (134-434); RBC 3.13 M/mm3 (3.60-5.2); RDW 15.5 % (11.6-15.6)
[2018-08-19 07:08] LABS: INR 1.24 (0.83-1.09); PROTHROMBIN TIME (PATIENT) 14.7 SEC (9.7-13.0)
[2018-08-19] MEDS: DOCUSATE SODIUM 100 MG CAPSULE (FP) PO SCH ×2 (09:58→22:03)
[2018-08-19] MEDS: FUROSEMIDE 40 MG TABLET (FP) PO SCH (09:59)
[2018-08-19] MEDS: GABAPENTIN 300 MG CAPSULE (FP) PO SCH (09:59)
[2018-08-19] MEDS: ASCORBIC ACID 500 MG TABLET (FP) PO SCH (09:59)
[2018-08-19] MEDS: LISINOPRIL 5 MG TABLET (FP) PO SCH ×2 (09:59→22:03)
[2018-08-19] MEDS: CARVEDILOL 25 MG TABLET (FP) PO SCH ×2 (09:59→22:03)
[2018-08-19] MEDS: LORATADINE 10 MG TABLET PO SCH (09:59)
[2018-08-19] MEDS: CHOLECALCIFEROL (VIT D3) 1,000 UNIT (25 MCG) TABLET PO SCH (09:59)
[2018-08-19] MEDS: SILVER SULFADIAZINE 1% TOP CREAM 50 GM JAR TP SCH (10:00)
[2018-08-19] MEDS: DIGOXIN 0.125 MG TABLET (FP) PO SCH (10:00)
[2018-08-19] MEDS: COLLAGENASE CLOSTRIDIUM HIST. 30 GRAMS TUBE TP SCH (10:00)
[2018-08-19] MEDS: MUPIROCIN 2% TOPICAL OINTMENT 22 GM TUBE TP SCH ×2 (10:00→22:03)
[2018-08-19] MEDS: POLYETHYLENE GLYCOL 3350 119 GM BTL PO SCH (10:01)
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
[2018-08-19] MEDS: HEPARIN SOD,PORK IN 0.45% NACL 25,000 UNIT/500 ML INFUS.BAG IVPB SCH (18:55)
[2018-08-19] MEDS: WARFARIN NA 5 MG TABLET (UD) PO SCH (18:55)
[2018-08-20 06:33] LABS: HEMATOCRIT 31.8 % (32.4-45.2); HEMOGLOBIN 11.1 GM/dL (10.7-15.3); MCH 32.9 pg (25.7-33.7); MCHC 34.9 g/dl (32.0-36.0); MEAN CELL VOLUME 94.1 fl (80-96); MEAN PLT VOLUME 7.8 fl (7.5-11.1); PLATELET COUNT 165 K/MM3 (134-434); RBC 3.38 M/mm3 (3.60-5.2); RDW 15.8 % (11.6-15.6)
[2018-08-20] MEDS: LEVOTHYROXINE NA 25 MCG TABLET (FP) PO SCH (06:39)
[2018-08-20 07:34] LABS: INR 1.23 (0.83-1.09); PROTHROMBIN TIME (PATIENT) 14.6 SEC (9.7-13.0)
[2018-08-20 07:37] LABS: ACTIVATED PTT 50.4 SECONDS (25.2-36.5)
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
[2018-08-20] MEDS: POLYETHYLENE GLYCOL 3350 119 GM BTL PO SCH (10:00)
[2018-08-20] MEDS ORDERED: PT OWN MED DRAWER 7, Y5N ONE (10:09)
[2018-08-20] MEDS: FUROSEMIDE 40 MG TABLET (FP) PO SCH (10:14)
[2018-08-20] MEDS: DOCUSATE SODIUM 100 MG CAPSULE (FP) PO SCH ×2 (10:14→21:27)
[2018-08-20] MEDS: LISINOPRIL 5 MG TABLET (FP) PO SCH ×2 (10:14→21:26)
[2018-08-20] MEDS: CARVEDILOL 25 MG TABLET (FP) PO SCH ×2 (10:14→21:35)
[2018-08-20] MEDS: GABAPENTIN 300 MG CAPSULE (FP) PO SCH (10:14)
[2018-08-20] MEDS: LORATADINE 10 MG TABLET PO SCH (10:14)
[2018-08-20] MEDS: CHOLECALCIFEROL (VIT D3) 1,000 UNIT (25 MCG) TABLET PO SCH (10:15)
[2018-08-20] MEDS: SILVER SULFADIAZINE 1% TOP CREAM 50 GM JAR TP SCH (10:15)
[2018-08-20] MEDS: COLLAGENASE CLOSTRIDIUM HIST. 30 GRAMS TUBE TP SCH (10:15)
[2018-08-20] MEDS: ASCORBIC ACID 500 MG TABLET (FP) PO SCH (10:16)
[2018-08-20] MEDS: MUPIROCIN 2% TOPICAL OINTMENT 22 GM TUBE TP SCH ×2 (10:16→22:27)
[2018-08-20] MEDS: ENOXAPARIN NA (PORCINE) 80 MG/0.8 ML DISP.SYRIN SQ SCH ×2 (10:16→21:27)
--- NOTE | 2018-08-20 11:10 | PN ---
Progress Note (short form) - Note Progress Note: Post Op Day 4, Post Skin graft and debridements Both lower legs 100% graft take....grafts Anthon adherent, no odor, no discharge, no erythema, grafts well adherent Donor area dry, xeroform well adherent Treatment : 1. Alice boot applied Left leg 2. Donor area, Xeroform dressing left intact Recommend : 1. Physical therapy for stability,Balance, Ambulation 2. Observe for circulation compression left leg 3. Donor site Left thigh leave dressing dry 4. When in bed /chair keep legs elevated FU in wound clinic on Monday Continue Medical Management
[2018-08-20] MEDS ORDERED: WARFARIN NA 7.5 MG TABLET (FP) PO ONE (18:00)
[2018-08-21] MEDS: LEVOTHYROXINE NA 25 MCG TABLET (FP) PO SCH (06:25)
[2018-08-21 06:41] LABS: HEMATOCRIT 29.1 % (32.4-45.2); MCH 32.5 pg (25.7-33.7); MCHC 34.4 g/dl (32.0-36.0); MEAN CELL VOLUME 94.5 fl (80-96); MEAN PLT VOLUME 8.3 fl (7.5-11.1); PLATELET COUNT 163 K/MM3 (134-434); RBC 3.08 M/mm3 (3.60-5.2); RDW 15.9 % (11.6-15.6); WHITE BLOOD COUNT 7.5 K/mm3 (4.0-10.0)
[2018-08-21 07:13] LABS: INR 1.36 (0.83-1.09); PROTHROMBIN TIME (PATIENT) 16.1 SEC (9.7-13.0)
[2018-08-21] MEDS: POLYETHYLENE GLYCOL 3350 119 GM BTL PO SCH (10:00)
[2018-08-21] MEDS: DOCUSATE SODIUM 100 MG CAPSULE (FP) PO SCH (10:23)
[2018-08-21] MEDS: GABAPENTIN 300 MG CAPSULE (FP) PO SCH (10:23)
[2018-08-21] MEDS: ASCORBIC ACID 500 MG TABLET (FP) PO SCH (10:23)
[2018-08-21] MEDS: FUROSEMIDE 40 MG TABLET (FP) PO SCH (10:23)
[2018-08-21] MEDS: LISINOPRIL 5 MG TABLET (FP) PO SCH (10:23)
[2018-08-21] MEDS: LORATADINE 10 MG TABLET PO SCH (10:23)
[2018-08-21] MEDS: CARVEDILOL 25 MG TABLET (FP) PO SCH (10:23)
[2018-08-21] MEDS: ENOXAPARIN NA (PORCINE) 80 MG/0.8 ML DISP.SYRIN SQ SCH (10:24)
[2018-08-21] MEDS: DIGOXIN 0.125 MG TABLET (FP) PO SCH (10:24)
[2018-08-21 10:31] VITALS: PULSE 56
[2018-08-21] MEDS: CHOLECALCIFEROL (VIT D3) 1,000 UNIT (25 MCG) TABLET PO SCH (10:46)
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
[2018-08-21] MEDS: MUPIROCIN 2% TOPICAL OINTMENT 22 GM TUBE TP SCH (12:24)
[2018-08-21] MEDS: SILVER SULFADIAZINE 1% TOP CREAM 50 GM JAR TP SCH (12:25)
[2018-08-21] MEDS: COLLAGENASE CLOSTRIDIUM HIST. 30 GRAMS TUBE TP SCH (12:25)
[2018-08-21 14:56] VITALS: BP 139/69; TEMP 97.6
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
== END 2018-08-21 15:40 | DRG 928 ==
LOC: JASUSAT 11:07 → SUATTDRO 11:07 → J4W 18:37
PROVIDERS: ADMIT Hospitalist; ATTEND Hospitalist
PROC: 0JBP0ZZ Excision of Left Lower Leg Subcutaneous Tissue and Fascia, Open Approach (ICD-10-PCS; principal; 2018-08-18)
PROC: 0HRLX73 Replacement of Left Lower Leg Skin with Autologous Tissue Substitute, Full Thickness, External Approach (ICD-10-PCS; 2018-08-18)
PROC: 0HRKX73 Replacement of Right Lower Leg Skin with Autologous Tissue Substitute, Full Thickness, External Approach (ICD-10-PCS; 2018-08-18)
PROC: 0HBJXZZ Excision of Left Upper Leg Skin, External Approach (ICD-10-PCS; 2018-08-18)
PROC: 0HBHXZZ Excision of Right Upper Leg Skin, External Approach (ICD-10-PCS; 2018-08-18)
DX: T24.301A Burn of third degree of unspecified site of right lower limb, except ankle and foot, initial encounter (principal); I13.0 Hypertensive heart and chronic kidney disease with heart failure and stage 1 through stage 4 chronic kidney disease, or unspecified chronic kidney disease; I50.22 Chronic systolic (congestive) heart failure; D62 Acute posthemorrhagic anemia; N18.9 Chronic kidney disease, unspecified; I48.91 Unspecified atrial fibrillation; B02.9 Zoster without complications; Z95.0 Presence of cardiac pacemaker; Z79.01 Long term (current) use of anticoagulants
CPT/HCPCS: 36415; 80053; 82272; 83735; 84100; 85025; 85027; 85610; 85730; 88304-TC; 94010; 94760; 97116-GP; 97162-GP

== ENCOUNTER 2018-08-31 13:05 | Inpatient (IN) | payer OTHER, MEDICARE ==
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
[2018-08-31] MEDS ORDERED: ACETAMINOPHEN 1000 MG/100 ML VIAL (NON FORMULARY) IVPB ONE (15:02)
[2018-08-31] MEDS ORDERED: ACETAMINOPHEN INJECTION 100 ML IVPB ONE (15:11)
[2018-08-31 15:26] LABS: BASO % 0.4 % (0-2.0); EOS % 0.3 % (0-4.5); HEMATOCRIT 35.7 % (32.4-45.2); HEMOGLOBIN 11.8 GM/dL (10.7-15.3); LYMPH % 8.4 % (8-40); MCH 31.9 pg (25.7-33.7); MEAN CELL VOLUME 96.5 fl (80-96); MEAN PLT VOLUME 8.2 fl (7.5-11.1); MONO % 10.3 % (3.8-10.2); NEUT % 80.6 % (42.8-82.8); PLATELET COUNT 211 K/MM3 (134-434); RDW 15.7 % (11.6-15.6); WHITE BLOOD COUNT 5.7 K/mm3 (4.0-10.0)
[2018-08-31] MEDS ORDERED: VANCOMYCIN 1 GM in D5W (PRE-DOCKED) 1,000 MG/250 ML IVPB ONE (15:45)
[2018-08-31] MEDS ORDERED: PIPERACILLIN/TAZOB 3.375 GM 3.375 GM in DEXTROSE 5%-WATER - 50 ML IVPB ONE (15:45)
[2018-08-31] MEDS ORDERED: ONDANSETRON 4 MG/2 ML VIAL IVPUSH ONE (15:47)
[2018-08-31 15:49] LABS: ALK PHOS 95 U/L (45-117); ANION GAP 6 MMOL/L (8-16); BILIRUBIN,TOTAL 0.5 mg/dL (0.2-1); BLOOD UREA NITROGEN 24 mg/dL (7-18); CALCIUM 8.2 mg/dL (8.5-10.1); CHLORIDE 98 mmol/L (98-107); CO2 37 mmol/L (21-32); CREATININE 0.9 mg/dL (0.55-1.3); GLUCOSE,RANDOM 110 mg/dL (74-106); POTASSIUM 3.7 mmol/L (3.5-5.1); SGOT/AST 21 U/L (15-37); SGPT/ALT 20 U/L (13-61); SODIUM 141 mmol/L (136-145); TOT PROT 6.7 g/dl (6.4-8.2)
[2018-08-31] MEDS ORDERED: PIPERACILLIN/TAZOB 3.375 GM 3.375 GM/50 ML BAG IVPB ONE (16:03)
[2018-08-31] MEDS ORDERED: ONDANSETRON 4 MG/2 ML VIAL ONE ×2 (16:03→16:04)
[2018-08-31 16:08] LABS: EPI CELLS 0.3 /HPF (0-5); PH,URINE 5.5 (5.0-8.0); URINE APPEARANCE CLEAR; URINE BACTERIA 2.2 /hpf (NEGATIVE); URINE BILIRUBIN NEGATIVE (NEGATIVE); URINE CASTS 1 /hpf (0-8); URINE COLOR YELLOW; URINE GLUCOSE (UA) NEGATIVE (NEGATIVE); URINE KETONE NEGATIVE (NEGATIVE); URINE LEUK ESTERASE NEGATIVE (NEGATIVE); URINE NITRITE NEGATIVE (NEGATIVE); URINE PROTEIN 1+ (NEGATIVE); URINE RBC 3 /hpf (0-4); URINE UROBILINOGEN 0.2 mg/dL (0.2-1.0); URINE WBC 0 /hpf (0-5)
[2018-08-31 16:08] LABS: N-TERMINAL BNP 14133.8 pg/ml (5-450)
[2018-08-31 16:09] LABS: INR 2.68 (0.83-1.09)
[2018-08-31 16:12] LABS: ACTIVATED PTT 43.8 SECONDS (25.2-36.5)
[2018-08-31] MEDS ORDERED: VANCOMYCIN 1 GRAM (PRE-DOCKED) 1,000 MG/250 ML BAG IVPB ONE (16:21)
[2018-08-31] MEDS ORDERED: AZITHROMYCIN IVPB 500 MG in DEXTROSE 5%-WATER - 250 ML IVPB ONE (16:43)
[2018-08-31] MEDS ORDERED: FUROSEMIDE 40 MG/4 ML INJECTABLE VIAL IVPUSH ONE (16:44)
[2018-08-31] MEDS ORDERED: CARVEDILOL PHOSPHATE CR 20 MG CAPSULE (FP) PO ONE ×2 (16:46→17:03)
[2018-08-31] MEDS ORDERED: FUROSEMIDE 40 MG/4 ML INJECTABLE VIAL ONE (16:59)
[2018-08-31] MEDS ORDERED: CARVEDILOL 12.5 MG TABLET (FP) ONE (17:01)
[2018-08-31] MEDS ORDERED: AZITHROMYCIN IVPB 500 MG/250 ML BAG IVPB ONE (17:40)
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
[2018-08-31] MEDS ORDERED: SENNOSIDES 8.6MG TABLET (FP) PO PRN (18:42)
[2018-08-31] MEDS ORDERED: DIGOXIN 0.125 MG TABLET (FP) PO SCH (18:45)
[2018-08-31] MEDS ORDERED: FUROSEMIDE 40 MG TABLET (FP) PO SCH (18:45)
[2018-08-31] MEDS ORDERED: ALBUTEROL SO4 0.042% IH SOL 1.25 MG/3 ML VIAL.NEB NEB PRN (18:53)
[2018-08-31] MEDS ORDERED: ALBUTEROL SO4 0.083% IH SOL 2.5 MG/3 ML VIAL.NEB. NEB ONE (19:00)
[2018-08-31] MEDS: ALBUTEROL SO4 2.5/IPRATROPIUM 0.5 INH SOL 3 ML VIAL.NEB. NEB SCH (20:30)
[2018-08-31] MEDS: CARVEDILOL 25 MG TABLET (FP) PO SCH (22:07)
[2018-08-31] MEDS: CALCIUM 500MG/VIT-D 200 UNITS COMBO TABLET (FP) PO SCH (22:07)
[2018-09-01] MEDS ORDERED: PIPERACILLIN/TAZOBACTAM 3.375 GM VIAL IVPB ONE ×3 (02:36→18:06)
[2018-09-01] MEDS ORDERED: DEXTROSE 5%-WATER - 50 ML IVPB ONE ×3 (02:36→18:06)
[2018-09-01] MEDS: PIPERACILLIN/TAZOB 3.375 GM 3.375 GM in DEXTROSE 5%-WATER - 50 ML IVPB SCH ×3 (02:57→18:22)
[2018-09-01] MEDS: LEVOTHYROXINE NA 25 MCG TABLET (FP) PO SCH (06:48)
[2018-09-01] MEDS: ALBUTEROL SO4 2.5/IPRATROPIUM 0.5 INH SOL 3 ML VIAL.NEB. NEB SCH ×4 (07:30→20:35)
--- NOTE | 2018-09-01 08:13 | RAPID ---
Physical Examination Vital Signs: Vital Signs Temperature 98.0 F 09/01/18 06:00 Pulse Rate 55 L 09/01/18 06:00 Respiratory Rate 18 09/01/18 06:00 Blood Pressure 175/75 H 09/01/18 06:00 O2 Sat by Pulse Oximetry (%) 98 08/31/18 19:35 Labs: CBC, BMP 08/31/18 13:33 08/31/18 13:33 Rapid Response - Rapid Response Assessment: rapid response called over head. pt sob and coughing, sob did not resolve despite breathing tx. 130s/70s HR 60s O2 sat 99% on 3L NC Lungs crackles. +accessory muscle use RRR pt admitted w/ PNA aand has pmh of CHF currently on PO lasix will discuss case w/ primary team and consider additional diuresis
[2018-09-01] MEDS ORDERED: FUROSEMIDE 40 MG/4 ML INJECTABLE VIAL ONE (08:27)
[2018-09-01 08:39] LABS: BASO % 0.4 % (0-2.0); EOS % 0.7 % (0-4.5); HEMATOCRIT 33.9 % (32.4-45.2); HEMOGLOBIN 11.3 GM/dL (10.7-15.3); LYMPH % 9.6 % (8-40); MCH 32.1 pg (25.7-33.7); MCHC 33.4 g/dl (32.0-36.0); MEAN CELL VOLUME 96.1 fl (80-96); MEAN PLT VOLUME 7.9 fl (7.5-11.1); MONO % 11.6 % (3.8-10.2); NEUT % 77.7 % (42.8-82.8); PLATELET COUNT 161 K/MM3 (134-434); RBC 3.53 M/mm3 (3.60-5.2); RDW 15.4 % (11.6-15.6); WHITE BLOOD COUNT 4.5 K/mm3 (4.0-10.0)
[2018-09-01 08:44] LABS: INR 2.54 (0.83-1.09); PROTHROMBIN TIME (PATIENT) 30.2 SEC (9.7-13.0)
[2018-09-01] MEDS ORDERED: FUROSEMIDE 40 MG/4 ML INJECTABLE VIAL IVPUSH ONE (08:45)
[2018-09-01] MEDS ORDERED: PT OWN MED DRAWER 7, Y5N ONE (09:01)
[2018-09-01 09:03] LABS: ANION GAP 5 MMOL/L (8-16); BLOOD UREA NITROGEN 20 mg/dL (7-18); CALCIUM 8.1 mg/dL (8.5-10.1); CHLORIDE 96 mmol/L (98-107); CO2 38 mmol/L (21-32); CREATININE 0.7 mg/dL (0.55-1.3); GLUCOSE,RANDOM 105 mg/dL (74-106); MAGNESIUM 1.8 mg/dL (1.8-2.4); PHOSPHOROUS 2.5 mg/dL (2.5-4.9); SODIUM 139 mmol/L (136-145)
[2018-09-01] MEDS: ASCORBIC ACID 500 MG TABLET (FP) PO SCH (09:04)
[2018-09-01] MEDS: LORATADINE 10 MG TABLET PO SCH (09:04)
[2018-09-01] MEDS: GABAPENTIN 300 MG CAPSULE (FP) PO SCH (09:05)
[2018-09-01] MEDS: DIGOXIN 0.125 MG TABLET (FP) PO SCH (09:05)
[2018-09-01] MEDS: CHOLECALCIFEROL (VITAMIN D3) 1,000 UNIT TABLET (FP) PO SCH (09:05)
[2018-09-01] MEDS: CARVEDILOL 25 MG TABLET (FP) PO SCH ×2 (09:05→22:02)
[2018-09-01] MEDS: CALCIUM 500MG/VIT-D 200 UNITS COMBO TABLET (FP) PO SCH ×2 (09:06→21:32)
[2018-09-01] MEDS ORDERED: POTASSIUM CHLORIDE TABS 20 MEQ TABLET.ER (FP) PO ONE (10:00)
[2018-09-01] MEDS ORDERED: FUROSEMIDE 40 MG TABLET (FP) PO SCH (10:00)
[2018-09-01] MEDS ORDERED: PATIENT'S OWN MEDICATION (NON-FORMULARY) (Biotin [Biotin] 5,000 MCG) PO SCH (10:00)
--- NOTE | 2018-09-01 10:06 | PN ---
Physical Exam: SUBJECTIVE: Patient seen and examined, reports episode of dyspnea, inability to breathe this AM, feels better now. Overall better than yesterday. Daughter at bedside, no other complaints. OBJECTIVE: Vital Signs Period Temp Pulse Resp BP Sys/Alvares Pulse Ox Last 24 Hr 97.5 F-101 F 49-65 18-22 147-175/64-75 98-100 Intake & Output 08/29/18 08/30/18 08/31/18 09/01/18 23:59 23:59 23:59 23:59 Intake Total 300 350 Output Total 650 600 Balance -350 -250 Weight 150 lb GENERAL: The patient is awake, alert, and fully oriented,looks better than yesterday, no tachypnea or use of accessory muscles of respiration HEAD: Normal with no signs of trauma. EYES: PERRL, extraocular movements intact, sclera anicteric, conjunctiva clear. No ptosis. ENT: Ears normal, nares patent, oropharynx clear without exudates, moist mucous membranes. NECK: soft, supple, no JVD visualized LUNGS: right basilar and middle lobe rales, bilateral scattered wheezing and rhonchi noted HEART: Regular rate and rhythm, S1, S2 ABDOMEN: Soft, nontender, nondistended, normoactive bowel sounds, no guarding, no rebound EXTREMITIES: RLE with 1 cm vertical wound on lower 1/3rd, no active bleed or discharge, lef tthigh wound well healing, no active discharge or bleeding, LLE lower 1/3rd wound with dressing, further exam deferred, 1+ pedal edema PSYCH: Normal mood, normal affect. SKIN: Warm, dry, normal turgor, no rashes or lesions noted Home Medications Medication Instructions Recorded Ascorbic Acid [Vitamin C] 500 mg PO DAILY 01/21/15 Calcium/Magnesium/Vit D3 [Calcium 1 each PO BID 01/21/15 500 mg Tablet] Biotin 5,000 mcg PO DAILY 05/14/15 Sennosides [Senna -] 1 tab PO PRN PRN 05/14/15 Levothyroxine [Synthroid -] 0.025 mcg PO DAILY 02/15/17 Silver Sulfadiazine 1% Top Cr 1 applic TP DAILY 7 Days #1 jar 08/01/18 [Silvadene -] Cetirizine HCl [Zyrtec -] 10 mg PO DAILY 08/14/18 Cholecalciferol (Vitamin D3) 1,000 unit PO DAILY 08/14/18 [Vitamin D -] Digoxin [Lanoxin -] 0.125 mg PO ASDIR 08/14/18 Furosemide [Lasix -] 40 mg PO ASDIR 08/14/18 Gabapentin [Neurontin -] 300 mg PO DAILY 08/14/18 Carvedilol [Coreg -] 25 mg PO BID 08/31/18 Saccharomyces Boulardii [Florastor] 250 mg PO BID 09/01/18 Warfarin Sodium [Coumadin] 6 mg PO DAILY 09/01/18 Active Medications Albuterol Sulfate (Ventolin 0.042trength) -) 1 amp NEB Q4H PRN PRN Reason: SHORT OF BREATH/WHEEZING Albuterol/Ipratropium (Duoneb -) 1 amp NEB RQID [facility] Last Admin: 09/01/18 07:30 Dose: 1 amp Ascorbic Acid (Vitamin C -) 500 mg PO DAILY [facility] Last Admin: 09/01/18 09:04 Dose: 500 mg Calcium Carbonate/Cholecalciferol (Os-Wil 500+D -) 1 tab PO BID [facility] Last Admin: 09/01/18 09:06 Dose: 1 tab Carvedilol (Coreg -) 25 mg PO BID [facility] Last Admin: 09/01/18 09:05 Dose: 25 mg Cholecalciferol (Vitamin D3 -) 1,000 unit PO DAILY [facility] Last Admin: 09/01/18 09:05 Dose: 1,000 unit Digoxin (Lanoxin -) 0.125 mg PO Q2D@1000 [facility] Last Admin: 09/01/18 09:05 Dose: 0.125 mg Furosemide (Lasix Injection -) 40 mg IVPUSH DAILY [facility] Gabapentin (Neurontin -) 300 mg PO DAILY [facility] Last Admin: 09/01/18 09:05 Dose: 300 mg Azithromycin 250 mg/ Dextrose 250 mls @ 250 mls/hr IVPB DAILY [facility] Piperacillin Sod/Tazobactam (Sod 3.375 gm/ Dextrose) 50 mls @ 100 mls/hr IVPB Q8H-IV [facility]; Protocol Vancomycin HCl 1,000 mg/ (Dextrose) 250 mls @ 200 mls/hr IVPB Q24H [facility]; Protocol Piperacillin Sod/Tazobactam (Sod 3.375 gm/ Dextrose) 50 mls @ 100 mls/hr IVPB Q8H-IV [facility] Stop: 09/01/18 10:29 Last Admin: 09/01/18 09:07 Dose: 100 mls/hr Levothyroxine Sodium (Synthroid -) 25 mcg PO DAILY@0700 [facility] Last Admin: 09/01/18 06:48 Dose: 25 mcg Loratadine (Claritin -) 10 mg PO DAILY [facility] Last Admin: 09/01/18 09:04 Dose: 10 mg Methylprednisolone Sodium Succinate (Solu-Medrol -) 40 mg IVPUSH BID [facility] Potassium Chloride (Potassium Chloride Oral Liquid) 40 meq PO Q12H [facility] Stop: 09/03/18 08:01 Senna (Senna -) 1 tab PO DAILY PRN PRN Reason: CONSTIPATION Silver Sulfadiazine (Silvadene -) 1 applic TP DAILY [facility] Warfarin Sodium (Coumadin -) 6 mg PO DAILY@1800 [facility] Laboratory Results - last 24 hr 08/31/18 08/31/18 08/31/18 13:33 13:33 13:33 WBC 5.7 RBC 3.70 Hgb 11.8 Hct 35.7 D MCV 96.5 H MCH 31.9 MCHC 33.0 RDW 15.7 H Plt Count 211 D MPV 8.2 Absolute Neuts (auto) 4.6 Neutrophils % 80.6 Lymphocytes % 8.4 D Monocytes % 10.3 H Eosinophils % 0.3 Basophils % 0.4 Nucleated RBC % 0 PT with INR 32.00 H INR 2.68 H PTT (Actin FS) 43.8 H Sodium 141 Potassium 3.7 Chloride 98 Carbon Dioxide 37 H Anion Gap 6 L BUN 24 H Creatinine 0.9 Creat Clearance w eGFR 59.23 Random Glucose 110 H Lactic Acid Calcium 8.2 L Phosphorus Magnesium Total Bilirubin 0.5 AST 21 ALT 20 Alkaline Phosphatase 95 Creatine Kinase 51 Troponin I 0.10 H B-Natriuretic Peptide 98265.8 H Total Protein 6.7 Albumin 3.0 L Urine Color Urine Appearance Urine pH Ur Specific [place] Urine Protein Urine Glucose (UA) Urine Ketones Urine Blood Urine Nitrite Urine Bilirubin Urine Urobilinogen Ur Leukocyte Esterase Urine WBC (Auto) Urine RBC (Auto) Urine Casts (Auto) U Epithel Cells (Auto) Urine Bacteria (Auto) 08/31/18 08/31/18 08/31/18 15:12 15:51 19:45 WBC RBC Hgb Hct MCV MCH MCHC RDW Plt Count MPV Absolute Neuts (auto) Neutrophils % Lymphocytes % Monocytes % Eosinophils % Basophils % Nucleated RBC % PT with INR INR PTT (Actin FS) Sodium Potassium Chloride Carbon Dioxide Anion Gap BUN Creatinine Creat Clearance w eGFR Random Glucose Lactic Acid 1.7 Calcium Phosphorus Magnesium Total Bilirubin AST ALT Alkaline Phosphatase Creatine Kinase Troponin I 0.10 H B-Natriuretic Peptide Total Protein Albumin Urine Color Yellow Urine Appearance Clear Urine pH 5.5 Ur Specific [place] 1.008 L Urine Protein 1+ H Urine Glucose (UA) Negative Urine Ketones Negative Urine Blood Trace Urine Nitrite Negative Urine Bilirubin Negative Urine Urobilinogen 0.2 Ur Leukocyte Esterase Negative Urine WBC (Auto) 0 Urine RBC (Auto) 3 Urine Casts (Auto) 1 U Epithel Cells (Auto) 0.3 Urine Bacteria (Auto) 2.2 09/01/18 09/01/18 09/01/18 07:20 07:20 07:20 WBC 4.5 RBC 3.53 L Hgb 11.3 Hct 33.9 MCV 96.1 H MCH 32.1 MCHC 33.4 RDW 15.4 Plt Count 161 D MPV 7.9 Absolute Neuts (auto) 3.5 Neutrophils % 77.7 Lymphocytes % 9.6 Monocytes % 11.6 H Eosinophils % 0.7 D Basophils % 0.4 Nucleated RBC % 0 PT with INR 30.20 H INR 2.54 H PTT (Actin FS) Sodium 139 Potassium 3.0 L Chloride 96 L Carbon Dioxide 38 H Anion Gap 5 L BUN 20 H Creatinine 0.7 Creat Clearance w eGFR 79.15 Random Glucose 105 Lactic Acid Calcium 8.1 L Phosphorus 2.5 Magnesium 1.8 Total Bilirubin AST ALT Alkaline Phosphatase Creatine Kinase Troponin I B-Natriuretic Peptide Total Protein Albumin Urine Color Urine Appearance Urine pH Ur Specific [place] Urine Protein Urine Glucose (UA) Urine Ketones Urine Blood Urine Nitrite Urine Bilirubin Urine Urobilinogen Ur Leukocyte Esterase Urine WBC (Auto) Urine RBC (Auto) Urine Casts (Auto) U Epithel Cells (Auto) Urine Bacteria (Auto) ASSESSMENT/PLAN: 87 yof with PMHx of afib on coumadin, chronic systolic HF (EF 45%), s/p PPM/ICD , herpes, HTN, CKD, recent excisional debridement/skin grafting to bilateral lower extremity 3rd degree wiseman, discharged to rehab on 08/21/2018, sent from [facility] with hypoxia found with RLL HCAP -Acute RLL HCAP with sepsis -Suspect acute on chronic systolic heart failure exacerbation Ef 45% -Acute hypoxic respiratory failure, likely from above -Elevated troponin, suspect demand NSTEMI type II from above, r/o ACS -Uncontrolled HTN,suspect from respiratory distress+/- anxiety -Hypokalemia -Recent excisional debridement/Skin grafting to bilateral lower extremity 3rd degree wiseman -Atrial fibrillation on coumadin -s/p PPM/ICD -CKD stage II -Herpes Shingles -Chronic anemia -Hypothyroidism Plan: AM events noted. Daughter at bedside. patient with episode of dyspnea/anxiety. No new hypoxia. Zosyn/vancomycin/azithromycin day 2, follow up ID input. Blood/sputum cx, urine PNA studise. Add solumedrol 40 mg IV BID. standing and prn nebs. Chest PT. CT chest results noted. Change lasix to 40 mg IV daily for now [facility] monitoring of volume status. Trop flat. Follow up cardiology input. Continue coreg/digoxin/levothyroxine. Coumadin 6 mg with daily INR. Dr. Ngo consult for LE wound care. PT eval once improve Dispo Daughter does not want patient to go back to [facility]. Address once medically improved. Plan discussed with patient and daughter at bedside and nursing in detail, all questions answered. Visit type - Emergency Visit Emergency Visit: Yes ED Registration Date: 08/31/18 Care time: The patient presented to the Emergency Department on the above date and was hospitalized for further evaluation of their emergent condition. - New Patient This patient is new to me today: No - Critical Care Critical Care patient: No - Discharge Referral Referred to [facility] Med P.C.: No
[2018-09-01] MEDS: methylPREDNISolone NA SUCC 40 MG/1 ML VIAL IVPUSH SCH ×2 (10:21→21:32)
[2018-09-01] MEDS: AZITHROMYCIN IVPB 250 MG in DEXTROSE 5%-WATER - 250 ML IVPB SCH (10:26)
--- NOTE | 2018-09-01 12:00 | PN ---
Progress Note (short form) - Note Progress Note: ID consult dictated 88 yo female living independently at home- developed wiseman to her legs in July, admitted 08/15 to 08/21 fordebridement and bilateral STSG she has been in rehab is followed by Dr Ngo started coughing this past week cxray at [facility] negative, saw Dr Ngo on Monday who prescribed augmentin for her cough worsened on Monday and familt brought her to ED cxray and chest ct with RML/RLL infiltrate fever to 101 HCAP- continue zosyn/zithromax/vancomycin urine legionella antigen ordered sputum culture ordered swab nares for MRSA had episode of cough and sob this am, improved, with lasix, neb and steroids s/p wiseman to her legs- STSG Problem List - Problems (1) Pneumonia Code(s): J18.9 - PNEUMONIA, UNSPECIFIED ORGANISM
--- NOTE | 2018-09-01 12:38 | CONS ---
DATE OF CONSULTATION: DATE OF DICTATION: 09/01/2018 REQUESTED BY: The hospitalist service. HISTORY OF PRESENT ILLNESS: This is an 88-year-old woman who was living independently in [place]. In July she developed wiseman on both her lower legs. She was sitting next to the fireplace and did not notice them until the next day. She had been seen in Wound Care and was being followed by Dr. Ngo. The wounds did not heal and she was admitted August 15 and she had debridement of her leg ulcers and split-thickness skin grafts. She was discharged to [facility] for wound care and she was seeing Dr. Ngo in the [facility]. She was noted to have a cough at the residential and had a chest x-ray done that the daughter reports was negative for pneumonia. She was seen subsequently on Monday by Dr. Ngo for her wound care who noted her cough and prescribed her Augmentin which she started on . On Monday when the daughter visited she noted she was markedly worse and was short of breath and lethargic and she brought her to the emergency room. In the ER she had a fever of 101. She had a chest x-ray and a chest CT that revealed a right middle lobe and right lower lobe infiltrate. She was started on vancomycin, Zosyn and Zithromax. This morning she had an episode of shortness of breath and cough for which they needed to call a rapid response. She responded to Lasix, steroids and nebulizer treatment. She is currently quite sleepy but otherwise alert. PAST MEDICAL HISTORY: Notable for atrial fibrillation. She has a history of heart failure. She has had zoster in the past, hypertension, chronic kidney disease and the bilateral lower extremity wiseman. SURGICAL HISTORY: Notable for permanent pacemaker, ICD. She has had bilateral knee replacements, bilateral hip replacements and she has had the recent split-thickness skin grafts to both her lower extremities as well as the debridement of the wounds. She has a history of lumpectomy in the past, too. SOCIAL HISTORY: Prior to this recent episode with the wiseman she was living independently. She is . She has 3 adult children. She is a former smoker. She quit many years ago when she had her children. ALLERGIES: She has no known drug allergies. MEDICATIONS: As an outpatient included Florastor, Coumadin, Coreg, Silvadene, Senna, Synthroid, Neurontin, Lasix, Lanoxin, vitamin D, Zyrtec, calcium, biotin and vitamin C. REVIEW OF SYSTEMS: As per HPI. The cough has been nonproductive and she has not been able to expectorate anything. She has had the fever that was documented in the emergency room and her appetite has been poor. PHYSICAL EXAMINATION:Vital Signs: Her T-max is 101, current temperature is 98. pulse of 65, blood pressure 175/75, respiratory rate is 18, she is saturating 98% on 3 L. HEENT: She is normocephalic. Her eyes are anicteric. She has no thrush. Neck: Supple. Lungs: Have diminished breath sounds at the right base. Currently she has no wheezes. Heart: Irregular. Abdomen: Soft, nontender. Extremities: Without edema. She has a dressing on her left thigh and she has dressings on both her feet which I did not remove. LABORATORY: White count is 4.5, hemoglobin 11.3, platelets are 161. INR is 2.5. BUN is 20 and creatinine 0.7. Urinalysis is negative. Cultures are pending. ASSESSMENT: 1. In summary, this is an elderly woman admitted with right lower lobe, right middle lobe pneumonia. Would cover her for hospital-associated pneumonia given her recent admission and her current status at the residential. Would continue Zosyn, Zithromax and vancomycin. Urine Legionella antigen has been ordered. Blood cultures are pending. Sputum culture has been ordered as well. 2. Status post wiseman to her legs, being followed by Plastic Surgery. 3. History of atrial fibrillation, on Coumadin. DUANE VELA M.D. [id number]
--- NOTE | 2018-09-01 12:57 | CON.CARD ---
Cardiology Consult (text) - Consultation Consultation Note: cc: sob hpi: 88 f hx syst chf (nicm, 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 Pt with cough, sob. No cp palps dizzy loc pnd orthopnea. Found to have pna. Sees dr magana for cardio. pmh: per hpi psh: icd, knee, hip social: no tob fam: nc ros: per hpi; no nvd, nasal congestion, vision changes, MORRISSEY, rash; all others normal meds: Current Medications Generic Name Dose Route Start Last Admin Trade Name Freq PRN Reason Stop Dose Admin Albuterol Sulfate 1 amp 08/31/18 18:53 Ventolin 0.042trength) - NEB Q4H PRN SHORT OF BREATH/WHEEZING Albuterol/Ipratropium 1 amp 08/31/18 20:00 09/01/18 07:30 Duoneb - NEB 1 amp RQID ANANT Administration Ascorbic Acid 500 mg 09/01/18 10:00 09/01/18 09:04 Vitamin C - PO 500 mg DAILY ANANT Administration Calcium Carbonate/Cholecalciferol 1 tab 08/31/18 22:00 09/01/18 09:06 Os-Wil 500+D - PO 1 tab BID ANANT Administration Carvedilol 25 mg 08/31/18 22:00 09/01/18 09:05 Coreg - PO 25 mg BID ANANT Administration Cholecalciferol 1,000 unit 09/01/18 10:00 09/01/18 09:05 Vitamin D3 - PO 1,000 unit DAILY ANANT Administration Digoxin 0.125 mg 09/01/18 10:00 09/01/18 09:05 Lanoxin - PO 0.125 mg Q2D@1000 ANANT Administration Furosemide 40 mg 09/02/18 10:00 Lasix Injection - IVPUSH DAILY ANANT Gabapentin 300 mg 09/01/18 10:00 09/01/18 09:05 Neurontin - PO 300 mg DAILY ANANT Administration Azithromycin 250 mg/ Dextrose 250 mls @ 250 mls/hr 09/01/18 10:00 09/01/18 10 :26 IVPB 250 mls/hr DAILY ANANT Administration Piperacillin Sod/Tazobactam 50 mls @ 100 mls/hr 09/01/18 18:00 Sod 3.375 gm/ Dextrose IVPB Q8H-IV ANANT Protocol Vancomycin HCl 1 gm in 200 mls @ 200 mls/hr 09/01/18 17:00 Vancomycin 1 Gm Premix - IVPB Q24H ANANT Protocol Levothyroxine Sodium 25 mcg 09/01/18 07:00 09/01/18 06:48 Synthroid - PO 25 mcg DAILY@0700 ANANT Administration Loratadine 10 mg 09/01/18 10:00 09/01/18 09:04 Claritin - PO 10 mg DAILY ANANT Administration Methylprednisolone Sodium Succinate 40 mg 09/01/18 10:00 09/01/18 10:21 Solu-Medrol - IVPUSH 40 mg BID ANANT Administration Potassium Chloride 40 meq 09/01/18 20:00 Potassium Chloride Oral Liquid PO 09/03/18 08:01 Q12H [facility] Senna 1 tab 08/31/18 18:42 Senna - PO DAILY PRN CONSTIPATION Silver Sulfadiazine 1 applic 09/01/18 10:00 Silvadene - TP DAILY [facility] Warfarin Sodium 6 mg 09/01/18 18:00 Coumadin - PO DAILY@1800 [facility] pe: Vital Signs Period Temp Pulse Resp BP Sys/Alvares Pulse Ox Last 24 Hr 97.5 F-101 F 49-65 18-22 147-175/64-75 98-100 nad, no jvd irreg, s1s2 no mrg scattered rhonchi, nl eff aaox3 no le e/c/c abd nt nd pos bs no jaundice diaphoresis pos dp pt Laboratory Last Values WBC 4.5 K/mm3 (4.0-10.0) 09/01/18 07:20 RBC 3.53 M/mm3 (3.60-5.2) L 09/01/18 07:20 Hgb 11.3 GM/dL (10.7-15.3) 09/01/18 07:20 Hct 33.9 % (32.4-45.2) 09/01/18 07:20 MCV 96.1 fl (80-96) H 09/01/18 07:20 MCH 32.1 pg (25.7-33.7) 09/01/18 07:20 MCHC 33.4 g/dl (32.0-36.0) 09/01/18 07:20 RDW 15.4 % (11.6-15.6) 09/01/18 07:20 Plt Count 161 K/MM3 (134-434) D 09/01/18 07:20 MPV 7.9 fl (7.5-11.1) 09/01/18 07:20 Absolute Neuts (auto) 3.5 K/mm3 (1.5-8.0) 09/01/18 07:20 Neutrophils % 77.7 % (42.8-82.8) 09/01/18 07:20 Lymphocytes % 9.6 % (8-40) 09/01/18 07:20 Monocytes % 11.6 % (3.8-10.2) H 09/01/18 07:20 Eosinophils % 0.7 % (0-4.5) D 09/01/18 07:20 Basophils % 0.4 % (0-2.0) 09/01/18 07:20 Nucleated RBC % 0 % (0-0) 09/01/18 07:20 PT with INR 30.20 SEC (9.7-13.0) H 09/01/18 07:20 INR 2.54 (0.83-1.09) H 09/01/18 07:20 PTT (Actin FS) 43.8 SECONDS (25.2-36.5) H 08/31/18 13:33 Sodium 139 mmol/L (136-145) 09/01/18 07:20 Potassium 3.0 mmol/L (3.5-5.1) L 09/01/18 07:20 Chloride 96 mmol/L (98-107) L 09/01/18 07:20 Carbon Dioxide 38 mmol/L (21-32) H 09/01/18 07:20 Anion Gap 5 MMOL/L (8-16) L 09/01/18 07:20 BUN 20 mg/dL (7-18) H 09/01/18 07:20 Creatinine 0.7 mg/dL (0.55-1.3) 09/01/18 07:20 Creat Clearance w eGFR 79.15 (>60) 09/01/18 07:20 Random Glucose 105 mg/dL (74-106) 09/01/18 07:20 Lactic Acid 1.7 mmol/L (0.4-2.0) 08/31/18 15:12 Calcium 8.1 mg/dL (8.5-10.1) L 09/01/18 07:20 Phosphorus 2.5 mg/dL (2.5-4.9) 09/01/18 07:20 Magnesium 1.8 mg/dL (1.8-2.4) 09/01/18 07:20 Total Bilirubin 0.5 mg/dL (0.2-1) 08/31/18 13:33 AST 21 U/L (15-37) 08/31/18 13:33 ALT 20 U/L (13-61) 08/31/18 13:33 Alkaline Phosphatase 95 U/L (45-117) 08/31/18 13:33 Creatine Kinase 51 U/L (26-192) 08/31/18 13:33 Troponin I 0.09 ng/ml (0.00-0.05) H 09/01/18 07:20 B-Natriuretic Peptide 45221.8 pg/ml (5-450) H 08/31/18 13:33 Total Protein 6.7 g/dl (6.4-8.2) 08/31/18 13:33 Albumin 3.0 g/dl (3.4-5.0) L 08/31/18 13:33 Urine Color Yellow 08/31/18 15:51 Urine Appearance Clear 08/31/18 15:51 Urine pH 5.5 (5.0-8.0) 08/31/18 15:51 Ur Specific [place] 1.008 (1.010-1.035) L 08/31/18 15:51 Urine Protein 1+ (NEGATIVE) H 08/31/18 15:51 Urine Glucose (UA) Negative (NEGATIVE) 08/31/18 15:51 Urine Ketones Negative (NEGATIVE) 08/31/18 15:51 Urine Blood Trace (NEGATIVE) 08/31/18 15:51 Urine Nitrite Negative (NEGATIVE) 08/31/18 15:51 Urine Bilirubin Negative (NEGATIVE) 08/31/18 15:51 Urine Urobilinogen 0.2 mg/dL (0.2-1.0) 08/31/18 15:51 Ur Leukocyte Esterase Negative (NEGATIVE) 08/31/18 15:51 Urine WBC (Auto) 0 /hpf (0-5) 08/31/18 15:51 Urine RBC (Auto) 3 /hpf (0-4) 08/31/18 15:51 Urine Casts (Auto) 1 /hpf (0-8) 08/31/18 15:51 U Epithel Cells (Auto) 0.3 /HPF (0-5) 08/31/18 15:51 Urine Bacteria (Auto) 2.2 /hpf (NEGATIVE) 08/31/18 15:51 ct chest: pna, no chf tele: afib, evp ecg: afib, vpaced echo 08/2014: mild lve, lvef 35%, global hk, nl rv, mild-mod mr, mod tr, mod phtn, increased rap, nl lap a/p: 88 f hx syst chf (nicm, 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 sob, pna: -cont abx -received iv lasix this AM, monitor for now on po lasix as pna resolves -no signs acs syst chf: -plan as above -continue bb -s/p biv icd, nl fcn on ecg/tele htn: -stable on current meds afib: -rate controlled with bb, dig (will check level) -cont coumadin per INR elevated trops: -borderline trop elevation with flat trend and nl ck similar to prior baseline values, not c/w acs
[2018-09-01] MEDS ORDERED: WARFARIN NA 5 MG TABLET (UD) PO SCH (18:00)
[2018-09-01] MEDS: VANCOMYCIN 1 GM PREMIX - 1 GM/200 ML BAG IVPB SCH (18:22)
[2018-09-01] MEDS: WARFARIN NA 3 MG TABLET PO SCH (18:23)
--- NOTE | 2018-09-01 18:41 | PN ---
Progress Note (short form) - Note Progress Note: FU for recent Skin grafts both lower legs for III wiseman less than 2%, surgery was uneventful Follow Up this Monday wound clinic dressings were changed and grafts evaluated Left lower leg skin was pink well adherent, no discharge, no pain , no odor, no calf tenderness, Right lower leg graft was lost, wound was covered with fibrinous tissue, chanel in color, no odor mild erythema, minimal tenderness, no calf tenderness. Patient did have someshortness of breath and a mild cough . She was started on Augmentin. Admitted yesterday for shortness of breath, cough, lethargy Dx: Pneumonia Has been seen by Dr Calixto....management noted included antibiotics Patient has improved since morning as per patient and nurses Microbiology 09/01/18 13:00 Urine For Antigen Detection Legionella Antigen - Final 09/01/18 13:00 Urine For Antigen Detection Streptococcus pneumoniae Antigen (M - Final Selected Entries 08/18/18 08/18/18 08/31/18 09:00 12:00 17:19 Temperature 97.8 F 101 F H Pulse Rate Pulse Rate [ 50 L Apical] Respiratory Rate Respiratory Shallow Depth Respiratory Non-Labored Effort Blood Pressure 154/72 O2 Sat by Pulse 97 100 Oximetry (%) Oxygen Delivery Method 08/31/18 09/01/18 19:35 06:00 Temperature 98.0 F Pulse Rate 55 L Pulse Rate [ Apical] Respiratory 18 Rate Respiratory Depth Respiratory Effort Blood Pressure 175/75 H O2 Sat by Pulse Oximetry (%) Oxygen Delivery Nasal Cannula Method Plan : Leg dressings left intact, circulation to feet intact, no calf tenderness, donor dry Keep legs elevated Keep dressings dry Will follow Dr Ngo
[2018-09-01] MEDS: POTASSIUM CHLORIDE ORAL LIQUID 20 MEQ/15 ML PO SCH (20:31)
[2018-09-02] MEDS ORDERED: PIPERACILLIN/TAZOBACTAM 3.375 GM VIAL IVPB ONE ×3 (01:35→17:09)
[2018-09-02] MEDS ORDERED: DEXTROSE 5%-WATER - 50 ML IVPB ONE ×3 (01:36→17:09)
[2018-09-02] MEDS: PIPERACILLIN/TAZOB 3.375 GM 3.375 GM in DEXTROSE 5%-WATER - 50 ML IVPB SCH ×3 (01:56→17:11)
[2018-09-02] MEDS: LEVOTHYROXINE NA 25 MCG TABLET (FP) PO SCH (06:09)
[2018-09-02 07:53] LABS: BASO % 0.3 % (0-2.0); HEMATOCRIT 37.8 % (32.4-45.2); HEMOGLOBIN 12.2 GM/dL (10.7-15.3); LYMPH % 9.6 % (8-40); MCH 30.6 pg (25.7-33.7); MCHC 32.2 g/dl (32.0-36.0); MEAN PLT VOLUME 7.9 fl (7.5-11.1); MONO % 5.7 % (3.8-10.2); NEUT % 84.4 % (42.8-82.8); PLATELET COUNT 189 K/MM3 (134-434); RBC 3.97 M/mm3 (3.60-5.2); RDW 15.3 % (11.6-15.6); WHITE BLOOD COUNT 4.2 K/mm3 (4.0-10.0)
[2018-09-02] MEDS: ALBUTEROL SO4 2.5/IPRATROPIUM 0.5 INH SOL 3 ML VIAL.NEB. NEB SCH ×4 (08:00→20:22)
[2018-09-02 08:48] LABS: ALBUMIN 2.5 g/dl (3.4-5.0); ALK PHOS 79 U/L (45-117); ANION GAP 5 MMOL/L (8-16); BILIRUBIN,TOTAL 0.5 mg/dL (0.2-1); BLOOD UREA NITROGEN 21 mg/dL (7-18); CALCIUM 8.6 mg/dL (8.5-10.1); CHLORIDE 97 mmol/L (98-107); CO2 35 mmol/L (21-32); CREATININE 0.7 mg/dL (0.55-1.3); GLUCOSE,RANDOM 130 mg/dL (74-106); PHOSPHOROUS 2.2 mg/dL (2.5-4.9); POTASSIUM 3.9 mmol/L (3.5-5.1); SGOT/AST 17 U/L (15-37); SGPT/ALT 16 U/L (13-61); SODIUM 137 mmol/L (136-145); TOT PROT 6.3 g/dl (6.4-8.2)
[2018-09-02] MEDS: AZITHROMYCIN IVPB 250 MG in DEXTROSE 5%-WATER - 250 ML IVPB SCH (09:31)
[2018-09-02] MEDS: methylPREDNISolone NA SUCC 40 MG/1 ML VIAL IVPUSH SCH ×2 (09:32→21:38)
[2018-09-02] MEDS: ASCORBIC ACID 500 MG TABLET (FP) PO SCH (09:32)
[2018-09-02] MEDS: POTASSIUM CHLORIDE ORAL LIQUID 20 MEQ/15 ML PO SCH (09:32)
[2018-09-02] MEDS: CHOLECALCIFEROL (VITAMIN D3) 1,000 UNIT TABLET (FP) PO SCH (09:32)
[2018-09-02] MEDS: GABAPENTIN 300 MG CAPSULE (FP) PO SCH (09:32)
[2018-09-02] MEDS: LORATADINE 10 MG TABLET PO SCH (09:32)
[2018-09-02] MEDS: CARVEDILOL 25 MG TABLET (FP) PO SCH ×2 (09:32→21:45)
[2018-09-02] MEDS: CALCIUM 500MG/VIT-D 200 UNITS COMBO TABLET (FP) PO SCH ×2 (09:32→21:38)
[2018-09-02] MEDS: SILVER SULFADIAZINE 1% TOP CREAM 400 GM JAR TP SCH (09:33)
[2018-09-02] MEDS: FUROSEMIDE 40 MG/4 ML INJECTABLE VIAL IVPUSH SCH (09:33)
--- NOTE | 2018-09-02 10:21 | PN ---
Physical Exam: SUBJECTIVE: Patient seen and examined,breathing improved, no headache, chest pain or new concerns. Still with cough with productive sputum but no fevers/ chills noted. OBJECTIVE: Vital Signs Period Temp Pulse Resp BP Sys/Alvares Pulse Ox Last 24 Hr 97.8 F-98.4 F 50-64 20-20 151-185/70-79 99 Intake & Output 08/30/18 08/31/18 09/01/18 09/02/18 23:59 23:59 23:59 23:59 Intake Total 300 1500 120 Output Total 650 1900 600 Balance -350 -400 -480 Weight 150 lb 137 lb GENERAL: The patient is awake, alert, and fully oriented,looks better than yesterday, no tachypnea or use of accessory muscles of respiration HEAD: Normal with no signs of trauma. EYES: PERRL, extraocular movements intact, sclera anicteric, conjunctiva clear. No ptosis. ENT: Ears normal, nares patent, oropharynx clear without exudates, moist mucous membranes. NECK: soft, supple, no JVD visualized LUNGS: right basilar and middle lobe rales, left basilar rales, rhonchi improved , no wheezing today HEART: Regular rate and rhythm, S1, S2 ABDOMEN: Soft, nontender, nondistended, normoactive bowel sounds, no guarding, no rebound EXTREMITIES: RLE with 1 cm vertical wound on lower 1/3rd, no active bleed or discharge, lef tthigh wound well healing, no active discharge or bleeding, LLE lower 1/3rd wound with dressing, further exam deferred, 1+ pedal edema PSYCH: Normal mood, normal affect. SKIN: Warm, dry, normal turgor, no rashes or lesions noted Laboratory Results - last 24 hr 09/01/18 09/02/18 09/02/18 07:20 06:40 06:40 WBC 4.2 RBC 3.97 Hgb 12.2 Hct 37.8 MCV 95.0 MCH 30.6 MCHC 32.2 RDW 15.3 Plt Count 189 MPV 7.9 Absolute Neuts (auto) 3.6 Neutrophils % 84.4 H Lymphocytes % 9.6 Monocytes % 5.7 Eosinophils % 0.0 D Basophils % 0.3 Nucleated RBC % 0 Sodium 139 137 Potassium 3.0 L 3.9 Chloride 96 L 97 L Carbon Dioxide 38 H 35 H Anion Gap 5 L 5 L BUN 20 H 21 H Creatinine 0.7 0.7 Creat Clearance w eGFR 79.15 79.15 Random Glucose 105 130 H Calcium 8.1 L 8.6 Phosphorus 2.5 2.2 L Magnesium 1.8 2.0 Total Bilirubin 0.5 AST 17 ALT 16 Alkaline Phosphatase 79 Troponin I 0.09 H Total Protein 6.3 L Albumin 2.5 L Digoxin 0.81 Active Medications Generic Name Dose Route Start Last Admin Trade Name Freq PRN Reason Stop Dose Admin Albuterol Sulfate 1 amp 08/31/18 18:53 Ventolin 0.042trength) - NEB Q4H PRN SHORT OF BREATH/WHEEZING Albuterol/Ipratropium 1 amp 08/31/18 20:00 09/02/18 08:00 Duoneb - NEB 1 amp RQID ANANT Administration Ascorbic Acid 500 mg 09/01/18 10:00 09/02/18 09:32 Vitamin C - PO 500 mg DAILY ANANT Administration Calcium Carbonate/Cholecalciferol 1 tab 08/31/18 22:00 09/02/18 09:32 Os-Wil 500+D - PO 1 tab BID ANANT Administration Carvedilol 25 mg 08/31/18 22:00 09/02/18 09:32 Coreg - PO 25 mg BID ANANT Administration Cholecalciferol 1,000 unit 09/01/18 10:00 09/02/18 09:32 Vitamin D3 - PO 1,000 unit DAILY ANANT Administration Digoxin 0.125 mg 09/01/18 10:00 09/01/18 09:05 Lanoxin - PO 0.125 mg Q2D@1000 ANANT Administration Furosemide 40 mg 09/02/18 10:00 09/02/18 09:33 Lasix Injection - IVPUSH 40 mg DAILY ANANT Administration Gabapentin 300 mg 09/01/18 10:00 09/02/18 09:32 Neurontin - PO 300 mg DAILY ANANT Administration Azithromycin 250 mg/ Dextrose 250 mls @ 250 mls/hr 09/01/18 10:00 09/02/18 09 :31 IVPB 250 mls/hr DAILY ANANT Administration Piperacillin Sod/Tazobactam 50 mls @ 100 mls/hr 09/01/18 18:00 09/02/18 09:31 Sod 3.375 gm/ Dextrose IVPB 100 mls/hr Q8H-IV ANANT Administration Protocol Vancomycin HCl 1 gm in 200 mls @ 200 mls/hr 09/01/18 17:00 09/01/18 18:22 Vancomycin 1 Gm Premix - IVPB 200 mls/hr Q24H ANANT Administration Protocol Levothyroxine Sodium 25 mcg 09/01/18 07:00 09/02/18 06:09 Synthroid - PO 25 mcg DAILY@0700 ANANT Administration Loratadine 10 mg 09/01/18 10:00 09/02/18 09:32 Claritin - PO 10 mg DAILY ANANT Administration Methylprednisolone Sodium Succinate 40 mg 09/01/18 10:00 09/02/18 09:32 Solu-Medrol - IVPUSH 40 mg BID ANANT Administration Potassium Chloride 40 meq 09/01/18 20:00 09/02/18 09:32 Potassium Chloride Oral Liquid PO 09/03/18 08:01 40 meq Q12H ANANT Administration Senna 1 tab 08/31/18 18:42 Senna - PO DAILY PRN CONSTIPATION Silver Sulfadiazine 1 applic 09/01/18 10:00 09/02/18 09:33 Silvadene - TP Not Given DAILY [facility] Warfarin Sodium 6 mg 09/01/18 18:00 09/01/18 18:23 Coumadin - PO 6 mg DAILY@1800 ANANT Administration Microbiology 08/31/18 15:51 Urine - Urine - Catheterized Urine Culture - Final NO GROWTH OBTAINED 09/01/18 13:00 Urine For Antigen Detection Legionella Antigen - Final 09/01/18 13:00 Urine For Antigen Detection Streptococcus pneumoniae Antigen (M - Final 08/31/18 13:15 Blood - Peripheral Venous Blood Culture - Preliminary NO GROWTH OBTAINED AFTER 24 HOURS, INCUBATION TO CONTINUE FOR 4 DAYS. 08/31/18 13:15 Blood - Peripheral Venous Blood Culture - Preliminary NO GROWTH OBTAINED AFTER 24 HOURS, INCUBATION TO CONTINUE FOR 4 DAYS. ASSESSMENT/PLAN: 87 yof with PMHx of afib on coumadin, chronic systolic HF (EF 45%), s/p PPM/ICD , herpes, HTN, CKD, recent excisional debridement/skin grafting to bilateral lower extremity 3rd degree wiseman, discharged to rehab on 08/21/2018, sent from [facility] with hypoxia found with RLL HCAP -Acute RLL HCAP with sepsis -Suspect acute on chronic systolic heart failure exacerbation Ef 45% -Acute hypoxic respiratory failure, likely from above -Elevated troponin, suspect demand NSTEMI type II from above, r/o ACS -Uncontrolled HTN,suspect from respiratory distress+/- anxiety -Hypokalemia -Recent excisional debridement/Skin grafting to bilateral lower extremity 3rd degree wiseman -Atrial fibrillation on coumadin -s/p PPM/ICD -CKD stage II -Herpes Shingles -Chronic anemia -Hypothyroidism Plan: Breathing improved. Zosyn/vancomycin/Azithromycin day 3, discuss with ID to taper abx. Blood cx neg, sputum cx as able. urine PNA studies neg. Change prednisone/lasix to PO in 24 hours if continues to improve. CT chest results noted. Cardiology input noted, top flat. Continue coreg/digoxin/levothyroxine. Coumadin 6 mg with daily INR. Dr. Ngo input appreciated for LE wound care. PT eval and OOB Dispo Daughter does not want patient to go back to [facility]. Address once medically improved. D/c planning in 2-3 days if continues to improve. Plan discussed with patient and son at bedside and nursing in detail, all questions answered. Visit type - Emergency Visit Emergency Visit: Yes ED Registration Date: 08/31/18 Care time: The patient presented to the Emergency Department on the above date and was hospitalized for further evaluation of their emergent condition. - New Patient This patient is new to me today: No - Critical Care Critical Care patient: No - Discharge Referral Referred to [facility] Med P.C.: No
[2018-09-02 10:56] LABS: INR 2.93 (0.83-1.09)
--- NOTE | 2018-09-02 11:28 | PN ---
Progress Note (short form) - Note Progress Note: continued dry cough unable to expectorate Vital Signs Period Temp Pulse Resp BP Sys/Alvares Pulse Ox Last 24 Hr 97.8 F-98.4 F 50-64 20-20 151-185/62-79 99-99 cor-rrr lungs decresed bs right base abd soft,nt ext dressings intact CBC, BMP 09/02/18 06:40 09/02/18 06:[address] with RML/RLL infiltrate Microbiology 08/31/18 15:51 Urine - Urine - Catheterized Urine Culture - Final NO GROWTH OBTAINED 09/01/18 13:00 Urine For Antigen Detection Legionella Antigen - Final 09/01/18 13:00 Urine For Antigen Detection Streptococcus pneumoniae Antigen (M - Final 08/31/18 13:15 Blood - Peripheral Venous Blood Culture - Preliminary NO GROWTH OBTAINED AFTER 24 HOURS, INCUBATION TO CONTINUE FOR 4 DAYS. 08/31/18 13:15 Blood - Peripheral Venous Blood Culture - Preliminary NO GROWTH OBTAINED AFTER 24 HOURS, INCUBATION TO CONTINUE FOR 4 DAYS. Current Medications Albuterol Sulfate (Ventolin 0.042trength) -) 1 amp NEB Q4H PRN PRN Reason: SHORT OF BREATH/WHEEZING Albuterol/Ipratropium (Duoneb -) 1 amp NEB RQID [facility] Last Admin: 09/02/18 08:00 Dose: 1 amp Ascorbic Acid (Vitamin C -) 500 mg PO DAILY [facility] Last Admin: 09/02/18 09:32 Dose: 500 mg Calcium Carbonate/Cholecalciferol (Os-Wil 500+D -) 1 tab PO BID [facility] Last Admin: 09/02/18 09:32 Dose: 1 tab Carvedilol (Coreg -) 25 mg PO BID [facility] Last Admin: 09/02/18 09:32 Dose: 25 mg Cholecalciferol (Vitamin D3 -) 1,000 unit PO DAILY [facility] Last Admin: 09/02/18 09:32 Dose: 1,000 unit Digoxin (Lanoxin -) 0.125 mg PO Q2D@1000 [facility] Last Admin: 09/01/18 09:05 Dose: 0.125 mg Furosemide (Lasix Injection -) 40 mg IVPUSH DAILY [facility] Last Admin: 09/02/18 09:33 Dose: 40 mg Gabapentin (Neurontin -) 300 mg PO DAILY [facility] Last Admin: 09/02/18 09:32 Dose: 300 mg Azithromycin 250 mg/ Dextrose 250 mls @ 250 mls/hr IVPB DAILY [facility] Last Admin: 09/02/18 09:31 Dose: 250 mls/hr Piperacillin Sod/Tazobactam (Sod 3.375 gm/ Dextrose) 50 mls @ 100 mls/hr IVPB Q8H-IV ANANT; Protocol Last Admin: 09/02/18 09:31 Dose: 100 mls/hr Vancomycin HCl (Vancomycin 1 Gm Premix -) 1 gm in 200 mls @ 200 mls/hr IVPB Q24H [facility]; Protocol Last Admin: 09/01/18 18:22 Dose: 200 mls/hr Levothyroxine Sodium (Synthroid -) 25 mcg PO DAILY@0700 [facility] Last Admin: 09/02/18 06:09 Dose: 25 mcg Loratadine (Claritin -) 10 mg PO DAILY [facility] Last Admin: 09/02/18 09:32 Dose: 10 mg Methylprednisolone Sodium Succinate (Solu-Medrol -) 40 mg IVPUSH BID [facility] Last Admin: 09/02/18 09:32 Dose: 40 mg Potassium Phos/Sodium Phos (Phos-Nak Packet -) 2 packet PO BID [facility] Stop: 09/03/18 22:01 Senna (Senna -) 1 tab PO DAILY PRN PRN Reason: CONSTIPATION Silver Sulfadiazine (Silvadene -) 1 applic TP DAILY [facility] Last Admin: 09/02/18 09:33 Dose: Not Given Warfarin Sodium (Coumadin -) 6 mg PO DAILY@1800 [facility] Last Admin: 09/01/18 18:23 Dose: 6 mg a/p HCAP- continue zosyn/zithromax/vancomycin day #2 urine legionella antigen negative sputum culture ordered swab nares for MRSA had episode of cough and sob this am, improved, with lasix, neb and steroids s/p wiseman to her legs- [facility] Problem List - Problems (1) Pneumonia Code(s): J18.9 - PNEUMONIA, UNSPECIFIED ORGANISM
[2018-09-02] MEDS: NAPH,MB-DB/K PH,MBDB POWDER PACKET PO SCH ×2 (12:29→21:38)
--- NOTE | 2018-09-02 14:10 | PN ---
Progress Note (short form) - Note Progress Note: s: sob improving. no chest pain, palps, dizziness Current Medications Albuterol Sulfate (Ventolin 0.042trength) -) 1 amp NEB Q4H PRN PRN Reason: SHORT OF BREATH/WHEEZING Albuterol/Ipratropium (Duoneb -) 1 amp NEB RQID [facility] Last Admin: 09/02/18 08:00 Dose: 1 amp Ascorbic Acid (Vitamin C -) 500 mg PO DAILY [facility] Last Admin: 09/02/18 09:32 Dose: 500 mg Calcium Carbonate/Cholecalciferol (Os-Wil 500+D -) 1 tab PO BID [facility] Last Admin: 09/02/18 09:32 Dose: 1 tab Carvedilol (Coreg -) 25 mg PO BID [facility] Last Admin: 09/02/18 09:32 Dose: 25 mg Cholecalciferol (Vitamin D3 -) 1,000 unit PO DAILY [facility] Last Admin: 09/02/18 09:32 Dose: 1,000 unit Digoxin (Lanoxin -) 0.125 mg PO Q2D@1000 [facility] Last Admin: 09/01/18 09:05 Dose: 0.125 mg Furosemide (Lasix Injection -) 40 mg IVPUSH DAILY [facility] Last Admin: 09/02/18 09:33 Dose: 40 mg Gabapentin (Neurontin -) 300 mg PO DAILY [facility] Last Admin: 09/02/18 09:32 Dose: 300 mg Azithromycin 250 mg/ Dextrose 250 mls @ 250 mls/hr IVPB DAILY [facility] Last Admin: 09/02/18 09:31 Dose: 250 mls/hr Piperacillin Sod/Tazobactam (Sod 3.375 gm/ Dextrose) 50 mls @ 100 mls/hr IVPB Q8H-IV [facility]; Protocol Last Admin: 09/02/18 09:31 Dose: 100 mls/hr Vancomycin HCl (Vancomycin 1 Gm Premix -) 1 gm in 200 mls @ 200 mls/hr IVPB Q24H [facility]; Protocol Last Admin: 09/01/18 18:22 Dose: 200 mls/hr Levothyroxine Sodium (Synthroid -) 25 mcg PO DAILY@0700 [facility] Last Admin: 09/02/18 06:09 Dose: 25 mcg Loratadine (Claritin -) 10 mg PO DAILY [facility] Last Admin: 09/02/18 09:32 Dose: 10 mg Methylprednisolone Sodium Succinate (Solu-Medrol -) 40 mg IVPUSH BID [facility] Last Admin: 09/02/18 09:32 Dose: 40 mg Potassium Phos/Sodium Phos (Phos-Nak Packet -) 2 packet PO BID [facility] Stop: 09/03/18 22:01 Last Admin: 09/02/18 12:29 Dose: 2 packet Senna (Senna -) 1 tab PO DAILY PRN PRN Reason: CONSTIPATION Silver Sulfadiazine (Silvadene -) 1 applic TP DAILY [facility] Last Admin: 09/02/18 09:33 Dose: Not Given Warfarin Sodium (Coumadin -) 6 mg PO DAILY@1800 [facility] Last Admin: 09/01/18 18:23 Dose: 6 mg pe: Vital Signs Period Temp Pulse Resp BP Sys/Alvares Pulse Ox Last 24 Hr 97.8 F-98.4 F 50-64 20-20 151-185/62-79 99-99 nad, no jvd irreg, s1s2 no mrg scattered rhonchi, nl eff aaox3 no le e/c/c abd nt nd pos bs no jaundice diaphoresis pos dp pt Laboratory Last Values WBC 4.2 K/mm3 (4.0-10.0) 09/02/18 06:40 RBC 3.97 M/mm3 (3.60-5.2) 09/02/18 06:40 Hgb 12.2 GM/dL (10.7-15.3) 09/02/18 06:40 Hct 37.8 % (32.4-45.2) 09/02/18 06:40 MCV 95.0 fl (80-96) 09/02/18 06:40 MCH 30.6 pg (25.7-33.7) 09/02/18 06:40 MCHC 32.2 g/dl (32.0-36.0) 09/02/18 06:40 RDW 15.3 % (11.6-15.6) 09/02/18 06:40 Plt Count 189 K/MM3 (134-434) 09/02/18 06:40 MPV 7.9 fl (7.5-11.1) 09/02/18 06:40 Absolute Neuts (auto) 3.6 K/mm3 (1.5-8.0) 09/02/18 06:40 Neutrophils % 84.4 % (42.8-82.8) H 09/02/18 06:40 Lymphocytes % 9.6 % (8-40) 09/02/18 06:40 Monocytes % 5.7 % (3.8-10.2) 09/02/18 06:40 Eosinophils % 0.0 % (0-4.5) D 09/02/18 06:40 Basophils % 0.3 % (0-2.0) 09/02/18 06:40 Nucleated RBC % 0 % (0-0) 09/02/18 06:40 PT with INR 35.00 SEC (9.7-13.0) H 09/02/18 08:30 INR 2.93 (0.83-1.09) H 09/02/18 08:30 PTT (Actin FS) 43.8 SECONDS (25.2-36.5) H 08/31/18 13:33 Sodium 137 mmol/L (136-145) 09/02/18 06:40 Potassium 3.9 mmol/L (3.5-5.1) 09/02/18 06:40 Chloride 97 mmol/L (98-107) L 09/02/18 06:40 Carbon Dioxide 35 mmol/L (21-32) H 09/02/18 06:40 Anion Gap 5 MMOL/L (8-16) L 09/02/18 06:40 BUN 21 mg/dL (7-18) H 09/02/18 06:40 Creatinine 0.7 mg/dL (0.55-1.3) 09/02/18 06:40 Creat Clearance w eGFR 79.15 (>60) 09/02/18 06:40 Random Glucose 130 mg/dL (74-106) H 09/02/18 06:40 Lactic Acid 1.7 mmol/L (0.4-2.0) 08/31/18 15:12 Calcium 8.6 mg/dL (8.5-10.1) 09/02/18 06:40 Phosphorus 2.2 mg/dL (2.5-4.9) L 09/02/18 06:40 Magnesium 2.0 mg/dL (1.8-2.4) 09/02/18 06:40 Total Bilirubin 0.5 mg/dL (0.2-1) 09/02/18 06:40 AST 17 U/L (15-37) 09/02/18 06:40 ALT 16 U/L (13-61) 09/02/18 06:40 Alkaline Phosphatase 79 U/L (45-117) 09/02/18 06:40 Creatine Kinase 51 U/L (26-192) 08/31/18 13:33 Troponin I 0.09 ng/ml (0.00-0.05) H 09/01/18 07:20 B-Natriuretic Peptide 67330.8 pg/ml (5-450) H 08/31/18 13:33 Total Protein 6.3 g/dl (6.4-8.2) L 09/02/18 06:40 Albumin 2.5 g/dl (3.4-5.0) L 09/02/18 06:40 Urine Color Yellow 08/31/18 15:51 Urine Appearance Clear 08/31/18 15:51 Urine pH 5.5 (5.0-8.0) 08/31/18 15:51 Ur Specific Spr[place] 1.008 (1.010-1.035) L 08/31/18 15:51 Urine Protein 1+ (NEGATIVE) H 08/31/18 15:51 Urine Glucose (UA) Negative (NEGATIVE) 08/31/18 15:51 Urine Ketones Negative (NEGATIVE) 08/31/18 15:51 Urine Blood Trace (NEGATIVE) 08/31/18 15:51 Urine Nitrite Negative (NEGATIVE) 08/31/18 15:51 Urine Bilirubin Negative (NEGATIVE) 08/31/18 15:51 Urine Urobilinogen 0.2 mg/dL (0.2-1.0) 08/31/18 15:51 Ur Leukocyte Esterase Negative (NEGATIVE) 08/31/18 15:51 Urine WBC (Auto) 0 /hpf (0-5) 08/31/18 15:51 Urine RBC (Auto) 3 /hpf (0-4) 08/31/18 15:51 Urine Casts (Auto) 1 /hpf (0-8) 08/31/18 15:51 U Epithel Cells (Auto) 0.3 /HPF (0-5) 08/31/18 15:51 Urine Bacteria (Auto) 2.2 /hpf (NEGATIVE) 08/31/18 15:51 Digoxin 0.81 ng/ml (0.8-2.0) 09/02/18 06:40 ct chest: pna, no chf tele: afib, vp patient ecg: afib, vpaced echo 08/2014: mild lve, lvef 35%, global hk, nl rv, mild-mod mr, mod tr, mod phtn, increased rap, nl lap a/p: 88 f hx syst chf (nicm, 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 sob, pna: -cont abx -received iv lasix this AM, improving with IV lasix - now back on lasix 40 mg IV daily, continue -no signs acs syst chf: -plan as above - monitor daily weights, lytes, Cr on diuresis -continue bb -s/p biv icd, nl fcn on ecg/tele htn: -stable on current meds afib: -rate controlled with bb, dig (will check level) -cont coumadin per INR elevated trops: -borderline trop elevation with flat trend and nl ck similar to prior baseline values, not c/w acs
[2018-09-02] MEDS: VANCOMYCIN 1 GM PREMIX - 1 GM/200 ML BAG IVPB SCH (17:18)
[2018-09-02] MEDS: WARFARIN NA 3 MG TABLET PO SCH (17:41)
[2018-09-03] MEDS ORDERED: PIPERACILLIN/TAZOBACTAM 3.375 GM VIAL IVPB ONE ×3 (02:50→17:56)
[2018-09-03] MEDS ORDERED: DEXTROSE 5%-WATER - 50 ML IVPB ONE ×3 (02:50→17:56)
[2018-09-03] MEDS: PIPERACILLIN/TAZOB 3.375 GM 3.375 GM in DEXTROSE 5%-WATER - 50 ML IVPB SCH ×3 (03:15→18:02)
[2018-09-03] MEDS: LEVOTHYROXINE NA 25 MCG TABLET (FP) PO SCH (06:02)
[2018-09-03 06:46] LABS: BASO % 0.1 % (0-2.0); HEMATOCRIT 40.3 % (32.4-45.2); LYMPH % 7.7 % (8-40); MCH 30.8 pg (25.7-33.7); MCHC 32.3 g/dl (32.0-36.0); MEAN CELL VOLUME 95.4 fl (80-96); MEAN PLT VOLUME 8.1 fl (7.5-11.1); MONO % 6.8 % (3.8-10.2); NEUT % 85.4 % (42.8-82.8); PLATELET COUNT 226 K/MM3 (134-434); RBC 4.23 M/mm3 (3.60-5.2); RDW 15.3 % (11.6-15.6); WHITE BLOOD COUNT 7.2 K/mm3 (4.0-10.0)
[2018-09-03 07:15] LABS: ANION GAP 7 MMOL/L (8-16); BLOOD UREA NITROGEN 23 mg/dL (7-18); CALCIUM 9.2 mg/dL (8.5-10.1); CHLORIDE 94 mmol/L (98-107); CO2 35 mmol/L (21-32); CREATININE 0.7 mg/dL (0.55-1.3); GLUCOSE,RANDOM 139 mg/dL (74-106); PHOSPHOROUS 2.8 mg/dL (2.5-4.9); POTASSIUM 3.9 mmol/L (3.5-5.1); SODIUM 135 mmol/L (136-145)
[2018-09-03] MEDS: ALBUTEROL SO4 2.5/IPRATROPIUM 0.5 INH SOL 3 ML VIAL.NEB. NEB SCH ×4 (07:36→20:15)
[2018-09-03] MEDS: FUROSEMIDE 40 MG/4 ML INJECTABLE VIAL IVPUSH SCH (09:17)
[2018-09-03] MEDS: methylPREDNISolone NA SUCC 40 MG/1 ML VIAL IVPUSH SCH (09:17)
[2018-09-03] MEDS: ASCORBIC ACID 500 MG TABLET (FP) PO SCH (09:18)
[2018-09-03] MEDS: CHOLECALCIFEROL (VITAMIN D3) 1,000 UNIT TABLET (FP) PO SCH (09:18)
[2018-09-03] MEDS: CALCIUM 500MG/VIT-D 200 UNITS COMBO TABLET (FP) PO SCH ×2 (09:18→22:01)
[2018-09-03] MEDS: NAPH,MB-DB/K PH,MBDB POWDER PACKET PO SCH ×2 (09:18→22:01)
[2018-09-03] MEDS: DIGOXIN 0.125 MG TABLET (FP) PO SCH (09:18)
[2018-09-03] MEDS: CARVEDILOL 25 MG TABLET (FP) PO SCH ×2 (09:19→22:01)
[2018-09-03] MEDS: LORATADINE 10 MG TABLET PO SCH (09:19)
[2018-09-03] MEDS: SILVER SULFADIAZINE 1% TOP CREAM 400 GM JAR TP SCH (09:19)
[2018-09-03] MEDS: GABAPENTIN 300 MG CAPSULE (FP) PO SCH (09:20)
[2018-09-03] MEDS: AZITHROMYCIN IVPB 250 MG in DEXTROSE 5%-WATER - 250 ML IVPB SCH (09:45)
--- NOTE | 2018-09-03 09:50 | PN ---
Progress Note (short form) - Note Progress Note: Hospitalist to document today. Still very congested on exam but clinically improved on IV Antibiotics and Lasix. Await Dr. Ngo followup.
[2018-09-03] MEDS ORDERED: LISINOPRIL 5 MG TABLET (FP) PO SCH ×2 (10:00→10:27)
--- NOTE | 2018-09-03 10:15 | PN ---
Teaching Attending Note Name of Resident: Amanda Khan ATTENDING PHYSICIAN STATEMENT I saw and evaluated the patient. I reviewed the resident's note and discussed the case with the resident. I agree with the resident's findings and plan as documented with exceptions below. SUBJECTIVE: Patient seen and examined. breathing much improved, pleasant, smiling,no new complaints. OBJECTIVE: Vital Signs Period Temp Pulse Resp BP Sys/Alvares Pulse Ox Last 24 Hr 97.2 F-97.9 F 50-57 18-20 121-182/56-85 100-100 Intake & Output 08/31/18 09/01/18 09/02/18 09/03/18 23:59 23:59 23:59 23:59 Intake Total 300 1500 960 250 Output Total 650 1900 2000 900 Balance -350 -400 -1040 -650 Weight 150 lb 137 lb 133 lb 12.8 oz General: sitting in bed in no acute distress, no use of accessory muscles of respiration CVS:S1S2 regular Chest; right basilar rales, occasional wheezing, improved air entry Abdomen:Soft, NT Extremities: RLE with 1 cm vertical wound on lower 1/3rd, no active bleed or discharge, lef tthigh wound well healing, no active discharge or bleeding, LLE lower 1/3rd wound with dressing, further exam deferred, improved pedal edema ASSESSMENT AND PLAN: 87 yof with PMHx of afib on coumadin, chronic systolic HF (EF 45%), s/p PPM/ICD , herpes, HTN, CKD, recent excisional debridement/skin grafting to bilateral lower extremity 3rd degree wiseman, discharged to rehab on 08/21/2018, sent from [facility] with hypoxia found with RLL HCAP -Acute RLL HCAP with sepsis -Suspect acute on chronic systolic heart failure exacerbation Ef 45% -Acute hypoxic respiratory failure, likely from above -Elevated troponin, suspect demand NSTEMI type II from above, r/o ACS -Uncontrolled HTN,suspect from respiratory distress+/- anxiety -Hypokalemia -Recent excisional debridement/Skin grafting to bilateral lower extremity 3rd degree wiseman -Atrial fibrillation on coumadin -s/p PPM/ICD -CKD stage II -Herpes Shingles -Chronic anemia -Hypothyroidism Plan: Markedly improved, afebrile, normal WBC. Zosyn/vancomycin/azithromcyin day 4. Dc vanco and plan for transition to PO abx in 24 hours pending ID input. Change to prednisone/lasix to po . Blood cx neg, urine PNA studies neg. CT chest results noted. Cardiology input noted, top flat. Continue coreg/digoxin/levothyroxine. Elevated BP, was on lisinopril on recent d,c unclear why dced. Will resume 2.5 mg BID. Coumadin 6 mg with daily INR. Dr. Ngo input appreciated for LE wound care, outpatient follow up. PT eval and OOB Daughter would prefer to not have patient go back to [facility], discussed with CM. Dispo d/c to SNF vs home with services in 24 hours if continues to improve. d/c tele Plan discussed with patient and son at bedside and nursing in detail, all questions answered.
[2018-09-03 10:28] LABS: INR 3.34 (0.83-1.09); PROTHROMBIN TIME (PATIENT) 39.9 SEC (9.7-13.0)
[2018-09-03] MEDS ORDERED: LISINOPRIL 5 MG TABLET (FP) PO ONE (10:30)
--- NOTE | 2018-09-03 10:32 | PN ---
Progress Note, Physician Chief Complaint: sob History of Present Illness: cough and sob improved, now coughing more today no leg swelling no cp, palpit - Current Medication List Current Medications: Active Medications Albuterol Sulfate (Ventolin 0.042trength) -) 1 amp NEB Q4H PRN PRN Reason: SHORT OF BREATH/WHEEZING Albuterol/Ipratropium (Duoneb -) 1 amp NEB RQID [facility] Last Admin: 09/03/18 07:36 Dose: 1 amp Ascorbic Acid (Vitamin C -) 500 mg PO DAILY [facility] Last Admin: 09/03/18 09:18 Dose: 500 mg Calcium Carbonate/Cholecalciferol (Os-Wil 500+D -) 1 tab PO BID [facility] Last Admin: 09/03/18 09:18 Dose: 1 tab Carvedilol (Coreg -) 25 mg PO BID [facility] Last Admin: 09/03/18 09:19 Dose: 25 mg Cholecalciferol (Vitamin D3 -) 1,000 unit PO DAILY [facility] Last Admin: 09/03/18 09:18 Dose: 1,000 unit Digoxin (Lanoxin -) 0.125 mg PO Q2D@1000 [facility] Last Admin: 09/03/18 09:18 Dose: 0.125 mg Furosemide (Lasix -) 40 mg PO DAILY [facility] Gabapentin (Neurontin -) 300 mg PO DAILY [facility] Last Admin: 09/03/18 09:20 Dose: 300 mg Azithromycin 250 mg/ Dextrose 250 mls @ 250 mls/hr IVPB DAILY [facility] Last Admin: 09/03/18 09:45 Dose: 250 mls/hr Piperacillin Sod/Tazobactam (Sod 3.375 gm/ Dextrose) 50 mls @ 100 mls/hr IVPB Q8H-IV [facility]; Protocol Last Admin: 09/03/18 09:17 Dose: 100 mls/hr Levothyroxine Sodium (Synthroid -) 25 mcg PO DAILY@0700 [facility] Last Admin: 09/03/18 06:02 Dose: 25 mcg Lisinopril (Prinivil) 2.5 mg PO BID [facility] Last Admin: 09/03/18 09:21 Dose: 2.5 mg Loratadine (Claritin -) 10 mg PO DAILY [facility] Last Admin: 09/03/18 09:19 Dose: 10 mg Potassium Phos/Sodium Phos (Phos-Nak Packet -) 2 packet PO BID [facility] Stop: 09/03/18 22:01 Last Admin: 09/03/18 09:18 Dose: 2 packet Prednisone (Deltasone -) 40 mg PO DAILY [facility] Senna (Senna -) 1 tab PO DAILY PRN PRN Reason: CONSTIPATION Silver Sulfadiazine (Silvadene -) 1 applic TP DAILY [facility] Last Admin: 09/03/18 09:19 Dose: Not Given Warfarin Sodium (Coumadin -) 6 mg PO DAILY@1800 [facility] Last Admin: 09/02/18 17:41 Dose: 6 mg - Objective Vital Signs: Vital Signs Temperature 97.2 F L 09/03/18 05:00 Pulse Rate 57 L 09/03/18 09:18 Respiratory Rate 20 09/03/18 08:15 Blood Pressure 179/74 H 09/03/18 08:12 O2 Sat by Pulse Oximetry (%) 100 09/03/18 08:15 Constitutional: Yes: Well Nourished, No Distress, Calm Cardiovascular: Yes: Regular Rate and Rhythm, Murmur (soft HSM apex), S1, S2. No: JVD, Gallop, S3, S4 Respiratory: Yes: Regular, Rales (bases), Wheezes (L base) Extremities: No: Cold Edema: No Neurological: Yes: Alert, Oriented Psychiatric: No: Agitated Labs: CBC, BMP 09/03/18 06:30 09/03/18 06:30 INR, PTT INR 2.93 (0.83-1.09) H 09/02/18 08:30 Assessment/Plan ct chest: pna, no chf tele: afib, svp monetization ecg: afib, vpaced echo 08/2014: mild lve, lvef 35%, global hk, nl rv, mild-mod mr, mod tr, mod phtn, increased rap, nl lap a/p: 88 f hx syst chf (nicm, 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 sob, pna, acute syst CHF: -cont abx per primary -no signs fluid overload/chf -sx's improved -no signs acs chronic syst chf: -outpt lasix regimen 20-40 po qd -recently dose incr'd to 40 qd here in hospital--continued in SNF and pt appeared euvolemic in office a week ago -remains euvolemic--same lasix -continue bb -s/p biv icd, nl fcn on ecg/tele htn: -sbp not well controlled here -has longstanding history of orthostasis with prior syncope -incr lisinopril 2.5 bid to 5 bid--NOTE: should go back down to 2.5 bid when prednisone is stopped, as suspect she will develope symptomatic orthostatic hypotension again if remains on higher dose off steroids--please include this in transfer instructions when pt goes to SNF -cont carvedilol afib: -rate controlled with bb, dig (will check level) -cont coumadin per INR elevated trops: -borderline trop elevation with flat trend and nl ck similar to prior baseline values, not c/w acs
--- NOTE | 2018-09-03 11:17 | EKG ---
Test Reason : Blood Pressure : / mmHG Vent. Rate : 052 BPM Atrial Rate : 054 BPM P-R Int : 000 ms QRS Dur : 172 ms QT Int : 486 ms P-R-T Axes : 000 -85 033 degrees QTc Int : 451 ms Ventricular-paced rhythm ABNORMAL ECG WHEN COMPARED WITH ECG OF 15-FEB-2017 16:53, NO SIGNIFICANT CHANGE WAS FOUND Confirmed by DARBY FORBES MD ([id number]) on 09/03/2018 11:16:43 AM Referred By: Confirmed By:DARBY FORBES MD
--- NOTE | 2018-09-03 11:51 | PN ---
Progress Note (short form) - Note Progress Note: congested cough able to lay flat slept last night Vital Signs Period Temp Pulse Resp BP Sys/Alvares Pulse Ox Last 24 Hr 97.2 F-97.9 F 50-57 18-20 121-182/56-85 100-100 cor-rrr lungs bilateral rhonchi crackles right base abd soft,nt ext no edema dressings intact CBC, BMP 09/03/18 06:30 09/03/18 06:30 Microbiology 09/02/18 11:00 Nares - Right Nares MRSA Screen - Final NO MRSA ISOLATED 09/02/18 11:00 Nares - Left Nares MRSA Screen - Final NO MRSA ISOLATED 08/31/18 13:15 Blood - Peripheral Venous Blood Culture - Preliminary NO GROWTH OBTAINED AFTER 48 HOURS, INCUBATION TO CONTINUE FOR 3 DAYS. 08/31/18 13:15 Blood - Peripheral Venous Blood Culture - Preliminary NO GROWTH OBTAINED AFTER 48 HOURS, INCUBATION TO CONTINUE FOR 3 DAYS. 08/31/18 15:51 Urine - Urine - Catheterized Urine Culture - Final NO GROWTH OBTAINED 09/01/18 13:00 Urine For Antigen Detection Legionella Antigen - Final 09/01/18 13:00 Urine For Antigen Detection Streptococcus pneumoniae Antigen (M - Final cxray and chest ct with RML/RLL infiltrate meds reviewed a/p HCAP- continue zosyn day #3/zithromax day #4 d/c vancomycin urine legionella antigen negative sputum culture ordered swab nares for MRSA negative if she continues to improve, can give last dose zithromax in am and switch to po augmentin s/p wiseman to her legs- STSG history of chf- on lasix Problem List - Problems (1) Pneumonia Code(s): J18.9 - PNEUMONIA, UNSPECIFIED ORGANISM
[2018-09-03] MEDS: FUROSEMIDE 40 MG TABLET (FP) PO SCH (13:26)
--- NOTE | 2018-09-03 13:46 | PN ---
Physical Exam: SUBJECTIVE: Patient seen and examined; c/o of some sob; denies chest pain, afebrile OBJECTIVE: Vital Signs Period Temp Pulse Resp BP Sys/Alvares Pulse Ox Last 24 Hr 97.2 F-97.9 F 50-57 18-20 121-182/56-85 100-100 GENERAL: The patient is awake, alert, and fully oriented, in no acute distress. HEAD: Normal with no signs of trauma. LUNGS: crackles b/l HEART: Regular rate and rhythm, S1, S2 without murmur, rub or gallop. ABDOMEN: Soft, nontender, nondistended, normoactive bowel sounds, no guarding, no rebound, no hepatosplenomegaly, no masses. EXTREMITIES: 2+ pulses, warm, well-perfused, no edema. b/l LE with dressing over wounds NEUROLOGICAL: Cranial nerves II through XII grossly intact. Normal speech, gait not observed. PSYCH: Normal mood, normal affect. SKIN: Warm, dry, normal turgor, no rashes or lesions noted Laboratory Results - last 24 hr 09/03/18 09/03/18 09/03/18 06:30 06:30 09:45 WBC 7.2 RBC 4.23 Hgb 13.0 Hct 40.3 MCV 95.4 MCH 30.8 MCHC 32.3 RDW 15.3 Plt Count 226 MPV 8.1 Absolute Neuts (auto) 6.1 Neutrophils % 85.4 H Lymphocytes % 7.7 L Monocytes % 6.8 Eosinophils % 0.0 Basophils % 0.1 Nucleated RBC % 0 PT with INR 39.90 H INR 3.34 H Sodium 135 L Potassium 3.9 Chloride 94 L Carbon Dioxide 35 H Anion Gap 7 L BUN 23 H Creatinine 0.7 Creat Clearance w eGFR 79.15 Random Glucose 139 H Calcium 9.2 Phosphorus 2.8 Active Medications Generic Name Dose Route Start Last Admin Trade Name Freq PRN Reason Stop Dose Admin Albuterol Sulfate 1 amp 08/31/18 18:53 Ventolin 0.042trength) - NEB Q4H PRN SHORT OF BREATH/WHEEZING Albuterol/Ipratropium 1 amp 08/31/18 20:00 09/03/18 11:20 Duoneb - NEB 1 amp RQID [facility] Administration Ascorbic Acid 500 mg 09/01/18 10:00 09/03/18 09:18 Vitamin C - PO 500 mg DAILY [facility] Administration Calcium Carbonate/Cholecalciferol 1 tab 08/31/18 22:00 09/03/18 09:18 Os-Wil 500+D - PO 1 tab BID [facility] Administration Carvedilol 25 mg 08/31/18 22:00 09/03/18 09:19 Coreg - PO 25 mg BID [facility] Administration Cholecalciferol 1,000 unit 09/01/18 10:00 09/03/18 09:18 Vitamin D3 - PO 1,000 unit DAILY [facility] Administration Digoxin 0.125 mg 09/01/18 10:00 09/03/18 09:18 Lanoxin - PO 0.125 mg Q2D@1000 [facility] Administration Furosemide 40 mg 09/03/18 10:15 09/03/18 13:26 Lasix - PO 40 mg DAILY [facility] Administration Gabapentin 300 mg 09/01/18 10:00 09/03/18 09:20 Neurontin - PO 300 mg DAILY [facility] Administration Azithromycin 250 mg/ Dextrose 250 mls @ 250 mls/hr 09/01/18 10:00 09/03/18 09 :45 IVPB 250 mls/hr DAILY [facility] Administration Piperacillin Sod/Tazobactam 50 mls @ 100 mls/hr 09/01/18 18:00 09/03/18 09:17 Sod 3.375 gm/ Dextrose IVPB 100 mls/hr Q8H-IV [facility] Administration Protocol Levothyroxine Sodium 25 mcg 09/01/18 07:00 09/03/18 06:02 Synthroid - PO 25 mcg DAILY@0700 [facility] Administration Lisinopril 2.5 mg 09/03/18 22:00 Prinivil PO BID [facility] Loratadine 10 mg 09/01/18 10:00 09/03/18 09:19 Claritin - PO 10 mg DAILY [facility] Administration Potassium Phos/Sodium Phos 2 packet 09/02/18 10:30 09/03/18 09:18 Phos-Nak Packet - PO 09/03/18 22:01 2 packet BID [facility] Administration Prednisone 40 mg 09/04/18 10:00 Deltasone - PO DAILY [facility] Senna 1 tab 08/31/18 18:42 Senna - PO DAILY PRN CONSTIPATION Silver Sulfadiazine 1 applic 09/01/18 10:00 09/03/18 09:19 Silvadene - TP Not Given DAILY [facility] Warfarin Sodium 6 mg 09/01/18 18:00 09/02/18 17:41 Coumadin - PO 6 mg DAILY@1800 [facility] Administration ASSESSMENT/PLAN: 87 year old female with past medical history of afib on coumadin, chronic systolic HF (EF 45%), s/p PPM/ICD, herpes, HTN, CKD, sustained 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 lower extremities, while sitting next to heater a month ago, s/p wound vacc and skin graft, currently in rehab, now with cough, white sputum production , CXR +PNA #sepsis secondary HCAP -IV antibiotic to cover for HCAP; -broad for now, zosyn, azithromycin -CXR with RLL; -chest CT -esdras ID rec: if she continues to improve, can give last dose zithromax in am and switch to po augmentin #Elevated trop; ml sec to demand ischemia -trended down #Atrial fibrillation on coumadin -warfarin; 5mg po ; -monitor INR #Recent excisional debridement/Skin grafting to bilateral lower extremity 3rd degree wiseman #HTN; #s/p PPM/ICD #CKD stage II #Herpes Shingles #Chronic anemia #hypothyroid VTE: on warfarin PER CARDIO: has longstanding history of orthostasis with prior syncope -incr lisinopril 2.5 bid to 5 bid--NOTE: should go back down to 2.5 bid when prednisone is stopped, as suspect she will develope symptomatic orthostatic hypotension again if remains on higher dose off steroids--please include this in transfer instructions when pt goes to SNF -cont carvedilol Visit type - Emergency Visit Emergency Visit: Yes ED Registration Date: 08/31/18 Care time: The patient presented to the Emergency Department on the above date and was hospitalized for further evaluation of their emergent condition. - New Patient This patient is new to me today: No - Critical Care Critical Care patient: No
[2018-09-03] MEDS: LISINOPRIL 5 MG TABLET (FP) PO SCH (22:01)
[2018-09-04] MEDS ORDERED: DEXTROSE 5%-WATER - 50 ML IVPB ONE ×3 (01:25→16:53)
[2018-09-04] MEDS ORDERED: PIPERACILLIN/TAZOBACTAM 3.375 GM VIAL IVPB ONE ×3 (01:25→16:51)
[2018-09-04] MEDS: PIPERACILLIN/TAZOB 3.375 GM 3.375 GM in DEXTROSE 5%-WATER - 50 ML IVPB SCH ×4 (01:47→17:03)
[2018-09-04] MEDS: LEVOTHYROXINE NA 25 MCG TABLET (FP) PO SCH (06:31)
[2018-09-04 06:59] LABS: BASO % 0.1 % (0-2.0); EOS % 0.1 % (0-4.5); HEMATOCRIT 41.8 % (32.4-45.2); HEMOGLOBIN 13.5 GM/dL (10.7-15.3); LYMPH % 13.2 % (8-40); MCH 30.4 pg (25.7-33.7); MCHC 32.3 g/dl (32.0-36.0); MEAN CELL VOLUME 94.2 fl (80-96); MEAN PLT VOLUME 7.9 fl (7.5-11.1); MONO % 13.6 % (3.8-10.2); PLATELET COUNT 250 K/MM3 (134-434); RBC 4.44 M/mm3 (3.60-5.2); RDW 15.3 % (11.6-15.6); WHITE BLOOD COUNT 7.7 K/mm3 (4.0-10.0)
[2018-09-04 07:21] LABS: ANION GAP 6 MMOL/L (8-16); BLOOD UREA NITROGEN 31 mg/dL (7-18); CALCIUM 8.8 mg/dL (8.5-10.1); CHLORIDE 94 mmol/L (98-107); CO2 36 mmol/L (21-32); CREATININE 0.8 mg/dL (0.55-1.3); GLUCOSE,RANDOM 147 mg/dL (74-106); PHOSPHOROUS 2.7 mg/dL (2.5-4.9); POTASSIUM 3.4 mmol/L (3.5-5.1); SODIUM 136 mmol/L (136-145)
[2018-09-04 07:24] LABS: INR 2.85 (0.83-1.09)
[2018-09-04] MEDS: ALBUTEROL SO4 2.5/IPRATROPIUM 0.5 INH SOL 3 ML VIAL.NEB. NEB SCH ×4 (08:35→20:00)
--- NOTE | 2018-09-04 09:35 | PN ---
Teaching Attending Note Name of Resident: Amanda Khan ATTENDING PHYSICIAN STATEMENT I saw and evaluated the patient. I reviewed the resident's note and discussed the case with the resident. I agree with the resident's findings and plan as documented with exceptions below. SUBJECTIVE: Patient seen and examined. feels weak, however, breathing coughing improved. urinating well, no new fevers, chills or complaints. OBJECTIVE: Vital Signs Period Temp Pulse Resp BP Sys/Alvares Pulse Ox Last 24 Hr 97.6 F-98.8 F 50-54 16-20 122-172/65-78 92-94 Intake & Output 09/01/18 09/02/18 09/03/18 09/04/18 23:59 23:59 23:59 23:59 Intake Total 3496 859 1370 60 Output Total 1900 2000 2400 Balance -400 -1040 -1300 60 Weight 137 lb 133 lb 12.8 oz 133 lb 9.6 oz General: sitting in bed, weak looking but no acute distress Chest: bilateral scattered rhonchi, positive air entry, bibasilar rales Abdomen;Soft, NT Extremities: bilateral leg dressing with no active erythema or edema Home Medications Medication Instructions Recorded Ascorbic Acid [Vitamin C] 500 mg PO DAILY 01/21/15 Calcium/Magnesium/Vit D3 [Calcium 1 each PO BID 01/21/15 500 mg Tablet] Biotin 5,000 mcg PO DAILY 05/14/15 Sennosides [Senna -] 1 tab PO PRN PRN 05/14/15 Levothyroxine [Synthroid -] 0.025 mcg PO DAILY 02/15/17 Silver Sulfadiazine 1% Top Cr 1 applic TP DAILY 7 Days #1 jar 08/01/18 [Silvadene -] Cetirizine HCl [Zyrtec -] 10 mg PO DAILY 08/14/18 Cholecalciferol (Vitamin D3) 1,000 unit PO DAILY 08/14/18 [Vitamin D -] Digoxin [Lanoxin -] 0.125 mg PO ASDIR 08/14/18 Furosemide [Lasix -] 40 mg PO ASDIR 08/14/18 Gabapentin [Neurontin -] 300 mg PO DAILY 08/14/18 Carvedilol [Coreg -] 25 mg PO BID 08/31/18 Saccharomyces Boulardii [Florastor] 250 mg PO BID 09/01/18 Warfarin Sodium [Coumadin] 6 mg PO DAILY 09/01/18 Active Medications Albuterol Sulfate (Ventolin 0.042trength) -) 1 amp NEB Q4H PRN PRN Reason: SHORT OF BREATH/WHEEZING Albuterol/Ipratropium (Duoneb -) 1 amp NEB RQID [facility] Last Admin: 09/03/18 20:15 Dose: 1 amp Ascorbic Acid (Vitamin C -) 500 mg PO DAILY [facility] Last Admin: 09/03/18 09:18 Dose: 500 mg Calcium Carbonate/Cholecalciferol (Os-Wil 500+D -) 1 tab PO BID [facility] Last Admin: 09/03/18 22:01 Dose: 1 tab Carvedilol (Coreg -) 25 mg PO BID [facility] Last Admin: 09/03/18 22:01 Dose: 25 mg Cholecalciferol (Vitamin D3 -) 1,000 unit PO DAILY [facility] Last Admin: 09/03/18 09:18 Dose: 1,000 unit Digoxin (Lanoxin -) 0.125 mg PO Q2D@1000 [facility] Last Admin: 09/03/18 09:18 Dose: 0.125 mg Furosemide (Lasix -) 40 mg PO DAILY [facility] Last Admin: 09/03/18 13:26 Dose: 40 mg Gabapentin (Neurontin -) 300 mg PO DAILY [facility] Last Admin: 09/03/18 09:20 Dose: 300 mg Azithromycin 250 mg/ Dextrose 250 mls @ 250 mls/hr IVPB DAILY [facility] Last Admin: 09/03/18 09:45 Dose: 250 mls/hr Piperacillin Sod/Tazobactam (Sod 3.375 gm/ Dextrose) 50 mls @ 100 mls/hr IVPB Q8H-IV [facility]; Protocol Last Admin: 09/04/18 01:47 Dose: 100 mls/hr Levothyroxine Sodium (Synthroid -) 25 mcg PO DAILY@0700 [facility] Last Admin: 09/04/18 06:31 Dose: 25 mcg Lisinopril (Prinivil) 2.5 mg PO BID [facility] Last Admin: 09/03/18 22:01 Dose: 2.5 mg Loratadine (Claritin -) 10 mg PO DAILY [facility] Last Admin: 09/03/18 09:19 Dose: 10 mg Prednisone (Deltasone -) 40 mg PO DAILY [facility] Senna (Senna -) 1 tab PO DAILY PRN PRN Reason: CONSTIPATION Silver Sulfadiazine (Silvadene -) 1 applic TP DAILY [facility] Last Admin: 09/03/18 09:19 Dose: Not Given Warfarin Sodium (Coumadin -) 5 mg PO DAILY@1800 [facility] Laboratory Results - last 24 hr 09/03/18 09/04/18 09/04/18 09:45 05:30 05:30 WBC 7.7 RBC 4.44 Hgb 13.5 Hct 41.8 MCV 94.2 MCH 30.4 MCHC 32.3 RDW 15.3 Plt Count 250 MPV 7.9 Absolute Neuts (auto) 5.6 Neutrophils % 73.0 Lymphocytes % 13.2 D Monocytes % 13.6 H D Eosinophils % 0.1 D Basophils % 0.1 Nucleated RBC % 0 PT with INR 39.90 H INR 3.34 H Sodium 136 Potassium 3.4 L Chloride 94 L Carbon Dioxide 36 H Anion Gap 6 L BUN 31 H Creatinine 0.8 Creat Clearance w eGFR 67.85 Random Glucose 147 H Calcium 8.8 Phosphorus 2.7 Magnesium 2.0 09/04/18 05:30 WBC RBC Hgb Hct MCV MCH MCHC RDW Plt Count MPV Absolute Neuts (auto) Neutrophils % Lymphocytes % Monocytes % Eosinophils % Basophils % Nucleated RBC % PT with INR 34.00 H INR 2.85 H Sodium Potassium Chloride Carbon Dioxide Anion Gap BUN Creatinine Creat Clearance w eGFR Random Glucose Calcium Phosphorus Magnesium Microbiology 08/31/18 13:15 Blood - Peripheral Venous Blood Culture - Preliminary NO GROWTH OBTAINED AFTER 72 HOURS, INCUBATION TO CONTINUE FOR 2 DAYS. 08/31/18 13:15 Blood - Peripheral Venous Blood Culture - Preliminary NO GROWTH OBTAINED AFTER 72 HOURS, INCUBATION TO CONTINUE FOR 2 DAYS. 09/02/18 11:00 Nares - Right Nares MRSA Screen - Final NO MRSA ISOLATED 09/02/18 11:00 Nares - Left Nares MRSA Screen - Final NO MRSA ISOLATED 08/31/18 15:51 Urine - Urine - Catheterized Urine Culture - Final NO GROWTH OBTAINED 09/01/18 13:00 Urine For Antigen Detection Legionella Antigen - Final 09/01/18 13:00 Urine For Antigen Detection Streptococcus pneumoniae Antigen (M - Final ASSESSMENT AND PLAN: 87 yof with PMHx of afib on coumadin, chronic systolic HF (EF 45%), s/p PPM/ICD , herpes, HTN, CKD, recent excisional debridement/skin grafting to bilateral lower extremity 3rd degree wiseman, discharged to rehab on 08/21/2018, sent from [facility] with hypoxia found with RLL HCAP -Acute RLL HCAP with sepsis -Suspect acute on chronic systolic heart failure exacerbation Ef 45% -Acute hypoxic respiratory failure, likely from above -Elevated troponin, suspect demand NSTEMI type II from above, r/o ACS -Uncontrolled HTN,suspect from respiratory distress+/- anxiety -Hypokalemia -Recent excisional debridement/Skin grafting to bilateral lower extremity 3rd degree wiseman -Atrial fibrillation on coumadin -s/p PPM/ICD -CKD stage II -Herpes Shingles -Chronic anemia -Hypothyroidism Plan: Clinically improved, afebrile, normal WBC. Zosyn/azithromycin day 5/ D/c azithromycin after today. transition to Augmentin for 7-10 days per ID. Prednisone/lasix PO. Replete K. Blood cx neg, urine PNA studies neg. CT chest results noted. Cardiology input noted, top flat. Continue coreg/digoxin/levothyroxine. Elevated BP, was on lisinopril on recent d,c unclear why dced. resumed 2.5 mg BID. Elevated BP partly from respiratory effort and anxiety, would avoid aggressive anti-hypertensives for now. INR noted, resume coumadin at [address] Ngo input appreciated for LE wound care, outpatient follow up. PT eval noted. Daughter would prefer to not have patient go back to [facility], discussed with CM. Dispo d/c to SNF today on PO abx pending disposition arrangements. Plan discussed with patient and nursing in detail, all questions answered.
[2018-09-04] MEDS ORDERED: POTASSIUM CHLORIDE TABS 20 MEQ TABLET.ER (FP) PO ONE (09:36)
[2018-09-04] MEDS: SILVER SULFADIAZINE 1% TOP CREAM 400 GM JAR TP SCH (09:53)
[2018-09-04] MEDS: LORATADINE 10 MG TABLET PO SCH (09:53)
[2018-09-04] MEDS: CARVEDILOL 25 MG TABLET (FP) PO SCH ×2 (09:53→21:47)
[2018-09-04] MEDS: CALCIUM 500MG/VIT-D 200 UNITS COMBO TABLET (FP) PO SCH ×2 (09:53→21:47)
[2018-09-04] MEDS: GABAPENTIN 300 MG CAPSULE (FP) PO SCH (09:54)
[2018-09-04] MEDS: LISINOPRIL 5 MG TABLET (FP) PO SCH ×2 (09:54→21:47)
[2018-09-04] MEDS: FUROSEMIDE 40 MG TABLET (FP) PO SCH (09:54)
[2018-09-04] MEDS: predniSONE 20 MG TABLET (UD) PO SCH (09:54)
[2018-09-04] MEDS: ASCORBIC ACID 500 MG TABLET (FP) PO SCH (09:54)
[2018-09-04] MEDS: AZITHROMYCIN IVPB 250 MG in DEXTROSE 5%-WATER - 250 ML IVPB SCH (09:57)
[2018-09-04] MEDS: CHOLECALCIFEROL (VITAMIN D3) 1,000 UNIT TABLET (FP) PO SCH (09:59)
[2018-09-04] MEDS ORDERED: predniSONE 20 MG TABLET (UD) PO SCH (10:00)
--- NOTE | 2018-09-04 11:07 | PN ---
Progress Note (short form) - Note Progress Note: Chief Complaint: sob History of Present Illness: no chest pain, palps, sob. feels better. Current Medications Albuterol Sulfate (Ventolin 0.042trength) -) 1 amp NEB Q4H PRN PRN Reason: SHORT OF BREATH/WHEEZING Albuterol/Ipratropium (Duoneb -) 1 amp NEB RQID [facility] Last Admin: 09/04/18 08:35 Dose: 1 amp Ascorbic Acid (Vitamin C -) 500 mg PO DAILY [facility] Last Admin: 09/04/18 09:54 Dose: 500 mg Calcium Carbonate/Cholecalciferol (Os-Wil 500+D -) 1 tab PO BID [facility] Last Admin: 09/04/18 09:53 Dose: 1 tab Carvedilol (Coreg -) 25 mg PO BID [facility] Last Admin: 09/04/18 09:53 Dose: 25 mg Cholecalciferol (Vitamin D3 -) 1,000 unit PO DAILY [facility] Last Admin: 09/04/18 09:59 Dose: 1,000 unit Digoxin (Lanoxin -) 0.125 mg PO Q2D@1000 [facility] Last Admin: 09/03/18 09:18 Dose: 0.125 mg Furosemide (Lasix -) 40 mg PO DAILY [facility] Last Admin: 09/04/18 09:54 Dose: 40 mg Gabapentin (Neurontin -) 300 mg PO DAILY [facility] Last Admin: 09/04/18 09:54 Dose: 300 mg Azithromycin 250 mg/ Dextrose 250 mls @ 250 mls/hr IVPB DAILY [facility] Last Admin: 09/04/18 09:57 Dose: 250 mls/hr Piperacillin Sod/Tazobactam (Sod 3.375 gm/ Dextrose) 50 mls @ 100 mls/hr IVPB Q8H-IV [facility]; Protocol Last Admin: 09/04/18 09:52 Dose: 100 mls/hr Levothyroxine Sodium (Synthroid -) 25 mcg PO DAILY@0700 [facility] Last Admin: 09/04/18 06:31 Dose: 25 mcg Lisinopril (Prinivil) 2.5 mg PO BID [facility] Last Admin: 09/04/18 09:54 Dose: 2.5 mg Loratadine (Claritin -) 10 mg PO DAILY [facility] Last Admin: 09/04/18 09:53 Dose: 10 mg Prednisone (Deltasone -) 50 mg PO DAILY [facility] Last Admin: 09/04/18 09:54 Dose: 50 mg Senna (Senna -) 1 tab PO DAILY PRN PRN Reason: CONSTIPATION Silver Sulfadiazine (Silvadene -) 1 applic TP DAILY [facility] Last Admin: 09/04/18 09:53 Dose: Not Given Warfarin Sodium (Coumadin -) 5 mg PO DAILY@1800 [facility] - Objective Vital Signs: Vital Signs Period Temp Pulse Resp BP Sys/Alvares Pulse Ox Last 24 Hr 97.6 F-98.8 F 50-55 16-20 122-172/65-78 92-94 Constitutional: Yes: Well Nourished, No Distress, Calm Cardiovascular: Yes: Regular Rate and Rhythm, Murmur (soft HSM apex), S1, S2. 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 sob, pna, acute syst CHF: -cont abx per primary -no signs fluid overload/chf -sx's improved -no signs acs chronic syst chf: -outpt lasix regimen 20-40 po qd -recently dose incr'd to 40 qd here in hospital--continued in SNF and pt appeared euvolemic in office a week ago -remains euvolemic--same lasix -continue bb -s/p biv icd, nl fcn on ecg/tele htn: -sbp not well controlled here -has longstanding history of orthostasis with prior syncope -incr lisinopril 2.5 bid to 5 bid--NOTE: should go back down to 2.5 bid when prednisone is stopped, as suspect she will develope symptomatic orthostatic hypotension again if remains on higher dose off steroids--please include this in transfer instructions when pt goes to SNF -cont carvedilol afib: -rate controlled with bb, dig (will check level) -cont coumadin per INR elevated trops: -borderline trop elevation with flat trend and nl ck similar to prior baseline values, not c/w acs
--- NOTE | 2018-09-04 12:44 | DS ---
Physical Exam: SUBJECTIVE: Patient seen and examined; sitting up in bed drinking ensure; OBJECTIVE: Vital Signs Period Temp Pulse Resp BP Sys/Alvares Pulse Ox Last 24 Hr 97.6 F-98.8 F 50-55 16-20 122-172/65-78 92-94 PHYSICAL EXAM GENERAL: The patient is awake, alert, and fully oriented, in no acute distress. LUNGS: course breath sounds; congestion HEART: Regular rate and rhythm, S1, S2 without murmur, rub or gallop. ABDOMEN: Soft, nontender, nondistended, normoactive bowel sounds, no guarding, no rebound, no hepatosplenomegaly, no masses. EXTREMITIES: 2+ pulses, warm, well-perfused, no edema. NEUROLOGICAL: Cranial nerves II through XII grossly intact. Normal speech, gait not observed. PSYCH: Normal mood, normal affect. SKIN: Warm, dry, normal turgor, no rashes or lesions noted. LABS Laboratory Results - last 24 hr 09/04/18 09/04/18 09/04/18 05:30 05:30 05:30 WBC 7.7 RBC 4.44 Hgb 13.5 Hct 41.8 MCV 94.2 MCH 30.4 MCHC 32.3 RDW 15.3 Plt Count 250 MPV 7.9 Absolute Neuts (auto) 5.6 Neutrophils % 73.0 Lymphocytes % 13.2 D Monocytes % 13.6 H D Eosinophils % 0.1 D Basophils % 0.1 Nucleated RBC % 0 PT with INR 34.00 H INR 2.85 H Sodium 136 Potassium 3.4 L Chloride 94 L Carbon Dioxide 36 H Anion Gap 6 L BUN 31 H Creatinine 0.8 Creat Clearance w eGFR 67.85 Random Glucose 147 H Calcium 8.8 Phosphorus 2.7 Magnesium 2.0 HOSPITAL COURSE: Date of Admission:08/31/18 Date of Discharge: 09/04/18 This is a 88 year old female with a history of atrial fibrillation on coumadin, chronic systolic HF (EF 45%), s/p PPM/ICD, herpes, HTN, CKD, recent excisional debridement/skin grafting to bilateral lower extremity 3rd degree wiseman, discharged to rehab on 08/21/2018, sent from [facility] with hypoxia found with RLL HCAP. Patient treated with IV antibiotics, sent home on Augmentin for 7 days. Patient also placed on steroid taper. Restarted on lisinopril. Minutes to complete discharge: 35 Discharge Summary Reason For Visit: WEAKNESS,ACUTE ON CHRONIC DIASTOLIC CHF,PNEUMONIA Current Active Problems Acute on chronic diastolic CHF (congestive heart failure) (Acute) Pneumonia (Acute) Condition: Fair - Instructions Diet, Activity, Other Instructions: Ms. Yuen, you have been treated in the hospital for pneumonia. Please continue taking the antibiotic and other prescribed medications as described below: New Medications: Augmentin 875mg twice daily for 7 days Lisinopril 2.5mg daily Prednisone Taper: 50mg for two days (5 pills per day) 40mg for two days (4 pills per day) 30mg for two days (3 pills per day) 20mg for two days (2 pills per day) 10mg for two days (1 pill per day) Changed medications: Start taking lasix 40mg daily Coumadin 5mg daily Continue taking the rest of your medications as prescribed; including digoxin, coreg, levothyroxine Please follow up with your primary for blood work in 2-3 days to check your INR Please continue to follow up with Dr. Ngo for wound care. If you experience any worsening of symptoms including chest pain, shortness of breath, fever, chills, please return to the emergency room. Disposition: INTERMEDIATE FACILITY - Home Medications Comprehensive Discharge Medication List: Ambulatory Orders Ascorbic Acid [Vitamin C] 500 mg PO DAILY 01/21/15 Calcium/Magnesium/Vit D3 [Calcium 500 mg Tablet] 1 each PO BID 01/21/15 Biotin 5,000 mcg PO DAILY 05/14/15 Sennosides [Senna -] 1 tab PO PRN PRN 05/14/15 Levothyroxine [Synthroid -] 0.025 mcg PO DAILY 02/15/17 Silver Sulfadiazine 1% Top Cr [Silvadene -] 1 applic TP DAILY 7 Days #1 jar Cetirizine HCl [Zyrtec -] 10 mg PO DAILY 08/14/18 Cholecalciferol (Vitamin D3) [Vitamin D -] 1,000 unit PO DAILY 08/14/18 Digoxin [Lanoxin -] 0.125 mg PO ASDIR 08/14/18 Furosemide [Lasix -] 40 mg PO ASDIR 08/14/18 Gabapentin [Neurontin -] 300 mg PO DAILY 08/14/18 Carvedilol [Coreg -] 25 mg PO BID 08/31/18 Saccharomyces Boulardii [Florastor] 250 mg PO BID 09/01/18 Amoxicillin/Potassium Clav [Augmentin 875-125 Tablet] 1 each PO BID 7 Days #14 tablet 09/04/18 Furosemide [Lasix -] 40 mg PO DAILY 30 Days #30 tablet 09/04/18 Lisinopril [Prinivil] 2.5 mg PO BID 30 Days #30 tablet 09/04/18 Prednisone 10 mg PO ASDIR 5 Days #30 tablet 09/04/18 Warfarin Na [Coumadin -] 5 mg PO DAILY@1800 14 Days #14 tablet 09/04/18 This patient is new to me today: No Emergency Visit: Yes ED Registration Date: 08/31/18 Care time: The patient presented to the Emergency Department on the above date and was hospitalized for further evaluation of their emergent condition. Critical Care patient: No - Discharge Referral Referred to [facility] No
[2018-09-04] MEDS: WARFARIN NA 5 MG TABLET (UD) PO SCH (17:20)
[2018-09-05] MEDS ORDERED: DEXTROSE 5%-WATER - 50 ML IVPB ONE ×3 (02:08→17:51)
[2018-09-05] MEDS ORDERED: PIPERACILLIN/TAZOBACTAM 3.375 GM VIAL IVPB ONE ×3 (02:08→17:50)
[2018-09-05] MEDS: PIPERACILLIN/TAZOB 3.375 GM 3.375 GM in DEXTROSE 5%-WATER - 50 ML IVPB SCH ×3 (02:16→18:02)
[2018-09-05] MEDS: LEVOTHYROXINE NA 25 MCG TABLET (FP) PO SCH (06:43)
[2018-09-05] MEDS: ALBUTEROL SO4 2.5/IPRATROPIUM 0.5 INH SOL 3 ML VIAL.NEB. NEB SCH ×4 (08:43→20:50)
--- NOTE | 2018-09-05 08:44 | PN ---
Progress Note (short form) - Note Progress Note: Hospitalist to document today. Very congested with more right sided rales and some wheezes. Respiratory Therapist also adding Chest PT.
[2018-09-05] MEDS: CALCIUM 500MG/VIT-D 200 UNITS COMBO TABLET (FP) PO SCH ×2 (10:00→22:17)
[2018-09-05] MEDS: CHOLECALCIFEROL (VITAMIN D3) 1,000 UNIT TABLET (FP) PO SCH (10:00)
[2018-09-05] MEDS: predniSONE 20 MG TABLET (UD) PO SCH (10:00)
[2018-09-05] MEDS: CARVEDILOL 25 MG TABLET (FP) PO SCH ×2 (10:00→22:17)
[2018-09-05] MEDS: FUROSEMIDE 40 MG TABLET (FP) PO SCH (10:00)
[2018-09-05] MEDS: ASCORBIC ACID 500 MG TABLET (FP) PO SCH (10:00)
[2018-09-05] MEDS: LORATADINE 10 MG TABLET PO SCH (10:00)
[2018-09-05] MEDS: LISINOPRIL 5 MG TABLET (FP) PO SCH ×2 (10:01→22:17)
[2018-09-05] MEDS: GABAPENTIN 300 MG CAPSULE (FP) PO SCH (10:02)
--- NOTE | 2018-09-05 10:02 | PN ---
Physical Exam: SUBJECTIVE: Patient seen and examined; feels somewhat better today; still short of breath OBJECTIVE: Vital Signs Period Temp Pulse Resp BP Sys/Alvares Pulse Ox Last 24 Hr 97 F-98.3 F 54-56 18-20 142-166/67-100 94 GENERAL: The patient is awake, alert, and fully oriented, sitting up in bed HEAD: Normal with no signs of trauma LUNGS: very course breath sounds b/l HEART: Regular rate and rhythm, S1, S2 without murmur, rub or gallop. ABDOMEN: Soft, nontender, nondistended, normoactive bowel sounds, no guarding, no rebound, no hepatosplenomegaly, no masses. EXTREMITIES: 2+ pulses, warm, well-perfused, no edema. NEUROLOGICAL: Cranial nerves II through XII grossly intact. Normal speech, gait not observed. PSYCH: Normal mood, normal affect. SKIN: Warm, dry, normal turgor, no rashes or lesions noted Active Medications Generic Name Dose Route Start Last Admin Trade Name Freq PRN Reason Stop Dose Admin Albuterol Sulfate 1 amp 08/31/18 18:53 Ventolin 0.042trength) - NEB Q4H PRN SHORT OF BREATH/WHEEZING Albuterol/Ipratropium 1 amp 08/31/18 20:00 09/05/18 08:43 Duoneb - NEB 1 amp RQID [facility] Administration Ascorbic Acid 500 mg 09/01/18 10:00 09/04/18 09:54 Vitamin C - PO 500 mg DAILY [facility] Administration Calcium Carbonate/Cholecalciferol 1 tab 08/31/18 22:00 09/04/18 21:47 Os-Wil 500+D - PO 1 tab BID [facility] Administration Carvedilol 25 mg 08/31/18 22:00 09/04/18 21:47 Coreg - PO 25 mg BID [facility] Administration Cholecalciferol 1,000 unit 09/01/18 10:00 09/04/18 09:59 Vitamin D3 - PO 1,000 unit DAILY [facility] Administration Digoxin 0.125 mg 09/01/18 10:00 09/03/18 09:18 Lanoxin - PO 0.125 mg Q2D@1000 [facility] Administration Furosemide 40 mg 09/03/18 10:15 09/04/18 09:54 Lasix - PO 40 mg DAILY [facility] Administration Gabapentin 300 mg 09/01/18 10:00 09/04/18 09:54 Neurontin - PO 300 mg DAILY [facility] Administration Piperacillin Sod/Tazobactam 50 mls @ 100 mls/hr 09/01/18 18:00 09/05/18 02:16 Sod 3.375 gm/ Dextrose IVPB 100 mls/hr Q8H-IV [facility] Administration Protocol Levothyroxine Sodium 25 mcg 09/01/18 07:00 09/05/18 06:43 Synthroid - PO 25 mcg DAILY@0700 [facility] Administration Lisinopril 2.5 mg 09/03/18 22:00 09/04/18 21:47 Prinivil PO 2.5 mg BID [facility] Administration Loratadine 10 mg 09/01/18 10:00 09/04/18 09:53 Claritin - PO 10 mg DAILY [facility] Administration Prednisone 50 mg 09/04/18 10:00 09/04/18 09:54 Deltasone - PO 50 mg DAILY [facility] Administration Senna 1 tab 08/31/18 18:42 Senna - PO DAILY PRN CONSTIPATION Silver Sulfadiazine 1 applic 09/01/18 10:00 09/04/18 09:53 Silvadene - TP Not Given DAILY [facility] Warfarin Sodium 5 mg 09/04/18 18:00 09/04/18 17:20 Coumadin - PO 5 mg DAILY@1800 [facility] Administration ASSESSMENT/PLAN: 87 year old female with past medical history of afib on coumadin, chronic systolic HF (EF 45%), s/p PPM/ICD, herpes, HTN, CKD, sustained 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 lower extremities, while sitting next to heater a month ago, s/p wound vacc and skin graft, currently in rehab, now with cough, white sputum production , CXR +PNA #sepsis secondary HCAP -IV antibiotic to cover for HCAP; -broad for now, zosyn, azithromycin -CXR with RLL; -chest CT -esdras ID rec: if she continues to improve, can give last dose zithromax in am and switch to po augmentin #hypokalemia: replace; check magnesium #Elevated trop; ml sec to demand ischemia -trended down #Atrial fibrillation on coumadin' rate controlled with dig;coreg -warfarin; 5mg po ; -monitor INR 2.85; cont 5mg po daily #Chronic systolic chf: -40 lasix qd -euvolemic #Recent excisional debridement/Skin grafting to bilateral lower extremity 3rd degree wiseman #HTN; #s/p PPM/ICD #CKD stage II #Herpes Shingles #Chronic anemia #hypothyroid VTE: on warfarin Visit type - Emergency Visit Emergency Visit: Yes ED Registration Date: 08/31/18 Care time: The patient presented to the Emergency Department on the above date and was hospitalized for further evaluation of their emergent condition. - New Patient This patient is new to me today: No - Critical Care Critical Care patient: No
[2018-09-05] MEDS: DIGOXIN 0.125 MG TABLET (FP) PO SCH (10:03)
[2018-09-05] MEDS: SILVER SULFADIAZINE 1% TOP CREAM 400 GM JAR TP SCH (10:10)
[2018-09-05] MEDS ORDERED: POTASSIUM CHLORIDE TABS 20 MEQ TABLET.ER (FP) PO ONE (10:11)
--- NOTE | 2018-09-05 10:22 | PN ---
Progress Note (short form) - Note Progress Note: Chief Complaint: sob History of Present Illness: complains of worsening shortness of breath today. no chest pain, palps, dizziness Current Medications Albuterol Sulfate (Ventolin 0.042trength) -) 1 amp NEB Q4H PRN PRN Reason: SHORT OF BREATH/WHEEZING Albuterol/Ipratropium (Duoneb -) 1 amp NEB RQID [facility] Last Admin: 09/05/18 08:43 Dose: 1 amp Ascorbic Acid (Vitamin C -) 500 mg PO DAILY [facility] Last Admin: 09/05/18 10:00 Dose: 500 mg Calcium Carbonate/Cholecalciferol (Os-Wil 500+D -) 1 tab PO BID [facility] Last Admin: 09/05/18 10:00 Dose: 1 tab Carvedilol (Coreg -) 25 mg PO BID [facility] Last Admin: 09/05/18 10:00 Dose: 25 mg Cholecalciferol (Vitamin D3 -) 1,000 unit PO DAILY [facility] Last Admin: 09/05/18 10:00 Dose: 1,000 unit Digoxin (Lanoxin -) 0.125 mg PO Q2D@1000 [facility] Last Admin: 09/05/18 10:03 Dose: Not Given Furosemide (Lasix -) 40 mg PO DAILY [facility] Last Admin: 09/05/18 10:00 Dose: 40 mg Gabapentin (Neurontin -) 300 mg PO DAILY [facility] Last Admin: 09/05/18 10:02 Dose: 300 mg Piperacillin Sod/Tazobactam (Sod 3.375 gm/ Dextrose) 50 mls @ 100 mls/hr IVPB Q8H-IV [facility]; Protocol Last Admin: 09/05/18 10:10 Dose: 100 mls/hr Levothyroxine Sodium (Synthroid -) 25 mcg PO DAILY@0700 [facility] Last Admin: 09/05/18 06:43 Dose: 25 mcg Lisinopril (Prinivil) 2.5 mg PO BID [facility] Last Admin: 09/05/18 10:01 Dose: 2.5 mg Loratadine (Claritin -) 10 mg PO DAILY [facility] Last Admin: 09/05/18 10:00 Dose: 10 mg Prednisone (Deltasone -) 50 mg PO DAILY [facility] Last Admin: 09/05/18 10:00 Dose: 50 mg Senna (Senna -) 1 tab PO DAILY PRN PRN Reason: CONSTIPATION Silver Sulfadiazine (Silvadene -) 1 applic TP DAILY [facility] Last Admin: 09/05/18 10:10 Dose: Not Given Warfarin Sodium (Coumadin -) 5 mg PO DAILY@1800 [facility] Last Admin: 09/04/18 17:20 Dose: 5 mg - Objective Vital Signs: Vital Signs Period Temp Pulse Resp BP Sys/Alvares Pulse Ox Last 24 Hr 97 F-98.3 F 54-56 18-20 142-166/67-100 94 Constitutional: Yes: Well Nourished, No Distress, Calm Cardiovascular: Yes: Regular Rate and Rhythm, Murmur (soft HSM apex), S1, S2. No: JVD, Gallop, S3, S4 Respiratory: Yes: Regular, Rales (bases), diffuse expiratory wheezes Extremities: No: Cold Edema: No Neurological: Yes: Alert, Oriented Psychiatric: No: Agitated Assessment/Plan ct chest: pna, no chf tele: afib, evp [employer] ecg: afib, vpaced echo 08/2014: mild lve, lvef 35%, global hk, nl rv, mild-mod mr, mod tr, mod phtn, increased rap, nl lap a/p: 88 f hx syst chf (nicm, lvef 35%), biv icd (medtronic), afib on coumadin, htn, pulm htn, recent le skin graft, who was sent from [facility] for sob. sob, pna, acute syst CHF: -cont abx per primary -no signs fluid overload/chf - on PO lasix -no signs acs - nebs, steroids per primary chronic syst chf: -outpt lasix regimen 20-40 po qd -recently dose incr'd to 40 qd here in hospital--continued in SNF and pt appeared euvolemic in office a week ago -remains euvolemic--same lasix -continue bb -s/p biv icd, nl fcn on ecg/tele htn: -sbp not well controlled here -has longstanding history of orthostasis with prior syncope -incr lisinopril 2.5 bid to 5 bid--NOTE: should go back down to 2.5 bid when prednisone is stopped, as suspect she will develope symptomatic orthostatic hypotension again if remains on higher dose off steroids--please include this in transfer instructions when pt goes to SNF -cont carvedilol afib: -rate controlled with bb, dig, continue -cont coumadin per INR elevated trops: -borderline trop elevation with flat trend and nl ck similar to prior baseline values, not c/w acs
--- NOTE | 2018-09-05 14:43 | PN ---
Teaching Attending Note Name of Resident: Amanda Khan ATTENDING PHYSICIAN STATEMENT I saw and evaluated the patient. I reviewed the resident's note and discussed the case with the resident. I agree with the resident's findings and plan as documented. SUBJECTIVE: Ms Yuen is without complaint. Denies cp, sob, n/v. OBJECTIVE: Last Vital Signs Temp Pulse Resp BP Pulse Ox 36.6 C 51 L 20 113/56 L 94 L 09/05/18 14:00 09/05/18 14:00 09/05/18 14:00 09/05/18 14:00 09/04/18 22:00 Gen: nad Pulm: very coarse and loud ronchi in all lung garza CV: irreg irreg but rate controlled w/o m/r/g Abd: +bs, s/nt/nd Ext: no c/c/e CBC, BMP 09/04/18 05:30 09/04/18 05:30 ASSESSMENT AND PLAN: Problem List - Problems (1) Pneumonia Assessment/Plan: -patient with significant ronchi in all lung garza -continue zosyn for HCAP -may need increase in steroids for better inflammation control -chest CT since acutely worsening Code(s): J18.9 - PNEUMONIA, UNSPECIFIED ORGANISM (2) Acute on chronic diastolic CHF (congestive heart failure) Assessment/Plan: -appreciate cardiology assistance -? if patient is becoming dehydrated considering hemoconcentration -monitor HCO3 -may need to change back to alternating lasix 20mg and 40mg daily Code(s): I50.33 - ACUTE ON CHRONIC DIASTOLIC (CONGESTIVE) HEART FAILURE (3) Atrial fibrillation Assessment/Plan: -continue coreg -INR therapeutic Code(s): I48.91 - UNSPECIFIED ATRIAL FIBRILLATION Qualifiers: Atrial fibrillation type: persistent Qualified Code(s): I48.1 - Persistent atrial fibrillation (4) Hypertension Assessment/Plan: -continue lisinopril 5mg bid while on steroids -change back to lisinopril 2.5mg bid when steroids finished -continue coreg -controlled after taking antihypertensives Code(s): I10 - ESSENTIAL (PRIMARY) HYPERTENSION Qualifiers: Hypertension type: essential hypertension Qualified Code(s): I10 - Essential (primary) hypertension (5) Hypothyroid Assessment/Plan: -continue synthroid Code(s): E03.9 - HYPOTHYROIDISM, UNSPECIFIED
[2018-09-05] MEDS: methylPREDNISolone NA SUCC 40 MG/1 ML VIAL IVPUSH SCH ×2 (15:46→18:02)
--- NOTE | 2018-09-05 16:04 | PN ---
Progress Note (short form) - Note Progress Note: PULMONARY CONSULTATION DICTATED 09/05/18 IMP PNEUMONIA ASHD NON-ISCHEMIC CARDIOMYOPATHY S/P ICD ACUTE ON CHRONIC CHF AFIB HTN + TROPONIN PLAN ABX PER ID INHALED BRONCHODILATORS O2 MEDROL LASIX DAILY WT STRICT I+OS CHEST PT ROBITUSSIN DM INCENTIVE SPIROMETER DR RODRIGUEZ Problem List - Problems (1) Pneumonia Code(s): J18.9 - PNEUMONIA, UNSPECIFIED ORGANISM (2) Acute on chronic diastolic CHF (congestive heart failure) Code(s): I50.33 - ACUTE ON CHRONIC DIASTOLIC (CONGESTIVE) HEART FAILURE (3) Hypothyroid Code(s): E03.9 - HYPOTHYROIDISM, UNSPECIFIED (4) Pneumonia Code(s): J18.9 - PNEUMONIA, UNSPECIFIED ORGANISM (5) Anemia Code(s): D64.9 - ANEMIA, UNSPECIFIED Qualifiers: Other causes of anemia: acute posthemorrhagic Qualified Code(s): D62 - Acute posthemorrhagic anemia (6) Atrial fibrillation Code(s): I48.91 - UNSPECIFIED ATRIAL FIBRILLATION Qualifiers: Atrial fibrillation type: persistent Qualified Code(s): I48.1 - Persistent atrial fibrillation (7) Biventricular automatic implantable cardioverter defibrillator in situ Code(s): Z95.810 - PRESENCE OF AUTOMATIC (IMPLANTABLE) CARDIAC DEFIBRILLATOR (8) Failure to thrive Code(s): [id number] -
[2018-09-05] MEDS: WARFARIN NA 5 MG TABLET (UD) PO SCH (18:02)
--- NOTE | 2018-09-05 18:09 | CONS ---
DATE OF CONSULTATION: 09/05/2018 PULMONARY CONSULTATION REFERRING PHYSICIAN: Monroe Concepcion M.D. HISTORY OF PRESENT ILLNESS: The patient is an 88-year-old white female with a past medical history of atrial fibrillation maintained on anticoagulation, nonischemic cardiomyopathy with chronic congestive heart failure with left ventricular systolic function of 35% status post permanent pacemaker, ICD, hypertension, chronic kidney disease, history of wiseman on the lower extremities status post debridement with graft. He was admitted to [facility] from snf secondary to increasing shortness of breath, chest congestion, cough, and weakness. Pt recently had skin graft by Dr. Ngo a week prior to the admission. She was transferred to [facility] for rehabilitation. Apparently at the snf, the patient was placed on O2 for 2-3 days due to low oxygen O2 saturations. She also apparently had a cough, nonproductive, and was started on Augmentin at the snf. According to the daughter, the patient was transferred to [facility] for further evaluation. Patient underwent a CAT scan of the chest on admission which revealed right middle lobe and right lower lobe infiltrate. She was admitted to the telemetry unit for further monitoring. She was evaluated by Dr. Jones from infectious disease and started with broad-spectrum antibiotics to cover for hospital acquired associated pneumonia. Patient also is evaluated by Dr. Matson for cardiology who felt that the patient was not in acute congestive heart failure despite having evidence of elevated BNP. She was kept on same dose of Lasix 20 mg daily. She also noted to have elevated troponins. Patient was doing well until earlier today when she was noted to have increasing chest congestion and nonproductive cough. Followup chest CT performed which revealed improvement in the right middle lobe infiltrates, increased right lower lobe infiltrate as well as atelectasis. Patient steroid dose was increased. Patient has history smoking many years ago. There is no history of occupational exposure to chemicals and fumes. There is no history of COPD or asthma in the past. PAST MEDICAL HISTORY: Again, includes nonischemic cardiomyopathy with a left ventricular ejection fraction of 35% status post ICD, atrial fibrillation maintained on Coumadin, hypertension, pulmonary hypertension, recent left lower extremity skin graft. Hypertension. REVIEW OF SYSTEMS: Positive shortness of breath. Positive cough. Positive chest congestion. No chest pain. No palpitation. No fever. No chills. No hemoptysis. No abdominal pain. CURRENT MEDICATIONS: Include Solu-Medrol 40 q.8, prednisone, piperacillin, Coumadin, Neurontin, albuterol, DuoNeb, Coreg, Lanoxin, senna, Silvadene, Lasix, Os-Wil, Claritin, Synthroid, vitamin C, and vitamin D3. PHYSICAL EXAMINATION: GENERAL: The patient is an elderly white female, well developed, awake, alert, in no acute distress, sitting out of bed in chair. VITAL SIGNS: She is afebrile. Heart rate is 15. Blood pressure 113/66, respiratory rate 20, and O2 saturation is 94% on room air. HEENT: Normocephalic, atraumatic. NECK: Supple. HEART: Irregularly irregular, S1, S2. CHEST: Diffuse bilateral rhonchi. ABDOMEN: Soft, bowel sounds positive. EXTREMITIES: No cyanosis, edema. LABORATORY: BUN 31, creatinine 0.8, troponin on admission was 0.10, subsequently 0.09, BNP on admission was 14,133. WBC is 7.7, hemoglobin 13.5, hematocrit 41.8 with a platelet count of 250,000. INR is 2.85. Chest CT noted earlier. IMPRESSION: 1. Chest congestion, cough, likely pneumonia , the right middle lobe, and the right lower lobe. 2. Arteriosclerotic heart disease. 3. Nonischemic cardiomyopathy status post implantable cardioverter defibrillator. 4. Congestive heart failure. 5. Acute on chronic congestive heart failure. 6. Atrial fibrillation. 7. Hypertension. 8. Positive troponins. PLAN: Lasix, antibiotics as per infectious disease, inhaled bronchodilators, supplemental O2, continue Medrol q.8 hours, Lasix, daily weight, strict intake and output, chest PT, Robitussin, incentive spirometer, and follow up chest x-rays. MARCEL RODRIGUEZ M.D. [id number] MTDD
[2018-09-06] MEDS ORDERED: PIPERACILLIN/TAZOBACTAM 3.375 GM VIAL IVPB ONE ×3 (02:07→17:33)
[2018-09-06] MEDS ORDERED: DEXTROSE 5%-WATER - 50 ML IVPB ONE ×3 (02:07→17:33)
[2018-09-06] MEDS: PIPERACILLIN/TAZOB 3.375 GM 3.375 GM in DEXTROSE 5%-WATER - 50 ML IVPB SCH ×3 (02:22→17:43)
[2018-09-06] MEDS: methylPREDNISolone NA SUCC 40 MG/1 ML VIAL IVPUSH SCH ×3 (02:22→17:43)
[2018-09-06] MEDS: LEVOTHYROXINE NA 25 MCG TABLET (FP) PO SCH (06:54)
[2018-09-06 07:46] LABS: BASO % 0.2 % (0-2.0); HEMATOCRIT 42.8 % (32.4-45.2); HEMOGLOBIN 13.9 GM/dL (10.7-15.3); LYMPH % 7.9 % (8-40); MCHC 32.5 g/dl (32.0-36.0); MEAN CELL VOLUME 95.6 fl (80-96); MEAN PLT VOLUME 8.1 fl (7.5-11.1); MONO % 3.8 % (3.8-10.2); NEUT % 88.1 % (42.8-82.8); PLATELET COUNT 308 K/MM3 (134-434); RBC 4.48 M/mm3 (3.60-5.2); RDW 15.4 % (11.6-15.6); WHITE BLOOD COUNT 9.9 K/mm3 (4.0-10.0)
[2018-09-06 08:05] LABS: INR 2.45 (0.83-1.09); PROTHROMBIN TIME (PATIENT) 29.2 SEC (9.7-13.0)
[2018-09-06 08:25] LABS: ANION GAP 8 MMOL/L (8-16); BLOOD UREA NITROGEN 35 mg/dL (7-18); CALCIUM 9.2 mg/dL (8.5-10.1); CHLORIDE 95 mmol/L (98-107); CO2 36 mmol/L (21-32); CREATININE 0.9 mg/dL (0.55-1.3); GLUCOSE,RANDOM 144 mg/dL (74-106); MAGNESIUM 1.9 mg/dL (1.8-2.4); POTASSIUM 4.1 mmol/L (3.5-5.1); SODIUM 140 mmol/L (136-145)
[2018-09-06] MEDS: ALBUTEROL SO4 2.5/IPRATROPIUM 0.5 INH SOL 3 ML VIAL.NEB. NEB SCH ×2 (08:36→12:15)
--- NOTE | 2018-09-06 08:54 | PN ---
Progress Note (short form) - Note Progress Note: Hospitalist to document today. Some improvement from Monday but still a lot of right chest rales and a few wheezes.
[2018-09-06] MEDS: LORATADINE 10 MG TABLET PO SCH (09:47)
[2018-09-06] MEDS: LISINOPRIL 5 MG TABLET (FP) PO SCH (09:47)
[2018-09-06] MEDS: GABAPENTIN 300 MG CAPSULE (FP) PO SCH (09:48)
[2018-09-06] MEDS: CARVEDILOL 25 MG TABLET (FP) PO SCH ×2 (09:48→21:17)
[2018-09-06] MEDS: ASCORBIC ACID 500 MG TABLET (FP) PO SCH (09:48)
[2018-09-06] MEDS: FUROSEMIDE 40 MG TABLET (FP) PO SCH (09:48)
[2018-09-06] MEDS: CALCIUM 500MG/VIT-D 200 UNITS COMBO TABLET (FP) PO SCH ×2 (09:48→21:17)
[2018-09-06] MEDS: CHOLECALCIFEROL (VITAMIN D3) 1,000 UNIT TABLET (FP) PO SCH (09:55)
--- NOTE | 2018-09-06 11:13 | PN ---
Teaching Attending Note Name of Resident: Amanda Khan ATTENDING PHYSICIAN STATEMENT I saw and evaluated the patient. I reviewed the resident's note and discussed the case with the resident. I agree with the resident's findings and plan as documented. SUBJECTIVE: Ms Yuen says she is feeling better today. Says she is coughing but feels her lungs are improved. Endorses a sore throat when asked. Denies cp or n/ v. OBJECTIVE: Last Vital Signs Temp Pulse Resp BP Pulse Ox 36.2 C L 57 L 18 182/74 H 95 09/06/18 06:00 09/06/18 06:00 09/06/18 06:00 09/06/18 09:25 09/05/18 22:00 Gen: nad HEENT: mucous plug behind uvula Pulm: diffuse ronchi bilaterally but slightly improved, wet sounding cough CV: rrr w/o m/r/g Abd: +bs, s/nt/nd Ext: no c/c/e CBC, BMP 09/06/18 06:23 09/06/18 06:23 ASSESSMENT AND PLAN: (1) Pneumonia Assessment/Plan: -continue zosyn per ID -pulmonary consulted -steroids increased to solumedrol 40mg IV q8h -improved today -mucous plug found on back of throat -saline solution and suction, removed Code(s): J18.9 - PNEUMONIA, UNSPECIFIED ORGANISM (2) Acute on chronic diastolic CHF (congestive heart failure) Assessment/Plan: -appears clinically dry today -discuss with cardiology to decrease lasix Code(s): I50.33 - ACUTE ON CHRONIC DIASTOLIC (CONGESTIVE) HEART FAILURE (3) Atrial fibrillation Assessment/Plan: -continue coreg -INR therapeutic Code(s): I48.91 - UNSPECIFIED ATRIAL FIBRILLATION Qualifiers: Atrial fibrillation type: persistent Qualified Code(s): I48.1 - Persistent atrial fibrillation (4) Hypertension Assessment/Plan: -elevated after increase in steroids -however steroids needed to clear lung exam -monitor, may need to temporarily increase until steroids can be tapered down Code(s): I10 - ESSENTIAL (PRIMARY) HYPERTENSION Qualifiers: Hypertension type: essential hypertension Qualified Code(s): I10 - Essential (primary) hypertension (5) Hypothyroid Assessment/Plan: -continue synthroid Code(s): E03.9 - HYPOTHYROIDISM, UNSPECIFIED Problem List - Problems (1) Pneumonia Code(s): J18.9 - PNEUMONIA, UNSPECIFIED ORGANISM (2) Acute on chronic diastolic CHF (congestive heart failure) Code(s): I50.33 - ACUTE ON CHRONIC DIASTOLIC (CONGESTIVE) HEART FAILURE (3) Atrial fibrillation Code(s): I48.91 - UNSPECIFIED ATRIAL FIBRILLATION Qualifiers: Atrial fibrillation type: persistent Qualified Code(s): I48.1 - Persistent atrial fibrillation (4) Hypertension Code(s): I10 - ESSENTIAL (PRIMARY) HYPERTENSION Qualifiers: Hypertension type: essential hypertension Qualified Code(s): I10 - Essential (primary) hypertension (5) Hypothyroid Code(s): E03.9 - HYPOTHYROIDISM, UNSPECIFIED
--- NOTE | 2018-09-06 11:16 | PN ---
Progress Note (short form) - Note Progress Note: s: no cp palps dizzy; sob slowly improving o: Vital Signs Period Temp Pulse Resp BP Sys/Alvares Pulse Ox Last 24 Hr 97.2 F-98.0 F 51-57 16-20 113-182/56-80 95 Current Medications Generic Name Dose Route Start Last Admin Trade Name Freq PRN Reason Stop Dose Admin Albuterol Sulfate 1 amp 08/31/18 18:53 Ventolin 0.042trength) - NEB Q4H PRN SHORT OF BREATH/WHEEZING Albuterol/Ipratropium 1 amp 08/31/18 20:00 09/06/18 08:36 Duoneb - NEB 1 amp RQID ANANT Administration Ascorbic Acid 500 mg 09/01/18 10:00 09/06/18 09:48 Vitamin C - PO 500 mg DAILY ANANT Administration Calcium Carbonate/Cholecalciferol 1 tab 08/31/18 22:00 09/06/18 09:48 Os-Wil 500+D - PO 1 tab BID ANANT Administration Carvedilol 25 mg 08/31/18 22:00 09/06/18 09:48 Coreg - PO 25 mg BID ANANT Administration Cholecalciferol 1,000 unit 09/01/18 10:00 09/06/18 09:55 Vitamin D3 - PO 1,000 unit DAILY ANANT Administration Digoxin 0.125 mg 09/01/18 10:00 09/05/18 10:03 Lanoxin - PO Not Given Q2D@1000 ANANT Furosemide 40 mg 09/03/18 10:15 09/06/18 09:48 Lasix - PO 40 mg DAILY ANANT Administration Gabapentin 300 mg 09/01/18 10:00 09/06/18 09:48 Neurontin - PO 300 mg DAILY ANANT Administration Piperacillin Sod/Tazobactam 50 mls @ 100 mls/hr 09/01/18 18:00 09/06/18 09:48 Sod 3.375 gm/ Dextrose IVPB 100 mls/hr Q8H-IV ANANT Administration Protocol Levothyroxine Sodium 25 mcg 09/01/18 07:00 09/06/18 06:54 Synthroid - PO 25 mcg DAILY@0700 ANANT Administration Lisinopril 5 mg 09/05/18 22:00 09/06/18 09:47 Prinivil PO 5 mg BID ANANT Administration Loratadine 10 mg 09/01/18 10:00 09/06/18 09:47 Claritin - PO 10 mg DAILY ANANT Administration Methylprednisolone Sodium Succinate 40 mg 09/05/18 15:30 09/06/18 09:56 Solu-Medrol - IVPUSH 40 mg Q8H-IV ANANT Administration Senna 1 tab 08/31/18 18:42 Senna - PO DAILY PRN CONSTIPATION Silver Sulfadiazine 1 applic 09/01/18 10:00 09/05/18 10:10 Silvadene - TP Not Given DAILY ANANT Warfarin Sodium 5 mg 09/04/18 18:00 09/05/18 18:02 Coumadin - PO 5 mg DAILY@1800 ANANT Administration - Objective Vital Signs: Vital Signs Period Temp Pulse Resp BP Sys/Alvares Pulse Ox Last 24 Hr 97.2 F-98.0 F 51-57 16-20 113-182/56-80 95 Constitutional: Yes: Well Nourished, No Distress, Calm Cardiovascular: Yes: Regular Rate and Rhythm, Murmur (soft HSM apex), S1, S2. No: JVD, Gallop, S3, S4 Respiratory: Yes: Regular, Rales (bases), diffuse expiratory wheezes Extremities: No: Cold Edema: No Neurological: Yes: Alert, Oriented Psychiatric: No: Agitated no jaundice diaphoresis CBC, BMP 09/06/18 06:23 09/06/18 06:23 ct chest: pna, no chf ecg: afib, vpaced echo 08/2014: mild lve, lvef 35%, global hk, nl rv, mild-mod mr, mod tr, mod phtn, increased rap, nl lap a/p: 88 f hx syst chf (nicm, 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 sob, pna, acute syst CHF: -cont abx per primary -no signs fluid overload/chf - on PO lasix -no signs acs - nebs, steroids per primary chronic syst chf: -outpt lasix regimen 20-40 po qd -recently dose incr'd to 40 qd here in hospital--continued in SNF and pt appeared euvolemic in office a week ago -remains euvolemic--same lasix -continue bb -s/p biv icd, nl fcn on ecg/tele htn: -sbp not well controlled here -has longstanding history of orthostasis with prior syncope -incr lisinopril 2.5 bid to 5 bid--NOTE: should go back down to 2.5 bid when prednisone is stopped, as suspect she will develope symptomatic orthostatic hypotension again if remains on higher dose off steroids--please include this in transfer instructions when pt goes to SNF -cont carvedilol afib: -rate controlled with bb, dig, continue -cont coumadin per INR elevated trops: -borderline trop elevation with flat trend and nl ck similar to prior baseline values, not c/w acs
--- NOTE | 2018-09-06 12:37 | PN ---
Progress Note (short form) - Note Progress Note: Breathing feels better today. Less SOB. Apparently a mucous plug was suctioned from the posterior oropharynx. Intake & Output 09/03/18 09/04/18 09/05/18 09/06/18 23:59 23:59 23:59 23:59 Intake Total 1100 1290 1200 60 Output Total 2400 Balance -1300 1290 1200 60 Weight 133 lb 12.8 oz 133 lb 9.6 oz 133 lb 9.6 oz 133 lb 9.6 oz Last Vital Signs Temp Pulse Resp BP Pulse Ox 97.2 F L 57 L 18 182/74 H 95 09/06/18 06:00 09/06/18 06:00 09/06/18 06:00 09/06/18 09:25 09/05/18 22:00 Active Medications Albuterol Sulfate (Ventolin 0.042trength) -) 1 amp NEB Q4H PRN PRN Reason: SHORT OF BREATH/WHEEZING Albuterol/Ipratropium (Duoneb -) 1 amp NEB RQID [facility] Last Admin: 09/06/18 12:15 Dose: 1 amp Ascorbic Acid (Vitamin C -) 500 mg PO DAILY [facility] Last Admin: 09/06/18 09:48 Dose: 500 mg Calcium Carbonate/Cholecalciferol (Os-Wil 500+D -) 1 tab PO BID [facility] Last Admin: 09/06/18 09:48 Dose: 1 tab Carvedilol (Coreg -) 25 mg PO BID [facility] Last Admin: 09/06/18 09:48 Dose: 25 mg Cholecalciferol (Vitamin D3 -) 1,000 unit PO DAILY [facility] Last Admin: 09/06/18 09:55 Dose: 1,000 unit Digoxin (Lanoxin -) 0.125 mg PO Q2D@1000 [facility] Last Admin: 09/05/18 10:03 Dose: Not Given Furosemide (Lasix -) 40 mg PO DAILY [facility] Last Admin: 09/06/18 09:48 Dose: 40 mg Gabapentin (Neurontin -) 300 mg PO DAILY [facility] Last Admin: 09/06/18 09:48 Dose: 300 mg Piperacillin Sod/Tazobactam (Sod 3.375 gm/ Dextrose) 50 mls @ 100 mls/hr IVPB Q8H-IV ANNAT; Protocol Last Admin: 09/06/18 09:48 Dose: 100 mls/hr Levothyroxine Sodium (Synthroid -) 25 mcg PO DAILY@0700 [facility] Last Admin: 09/06/18 06:54 Dose: 25 mcg Lisinopril (Prinivil) 5 mg PO BID [facility] Last Admin: 09/06/18 09:47 Dose: 5 mg Loratadine (Claritin -) 10 mg PO DAILY [facility] Last Admin: 09/06/18 09:47 Dose: 10 mg Methylprednisolone Sodium Succinate (Solu-Medrol -) 40 mg IVPUSH Q8H-IV [facility] Last Admin: 09/06/18 09:56 Dose: 40 mg Senna (Senna -) 1 tab PO DAILY PRN PRN Reason: CONSTIPATION Silver Sulfadiazine (Silvadene -) 1 applic TP DAILY [facility] Last Admin: 09/05/18 10:10 Dose: Not Given Warfarin Sodium (Coumadin -) 5 mg PO DAILY@1800 [facility] Last Admin: 09/05/18 18:02 Dose: 5 mg Constitutional: Yes: NAD Cardiovascular: Yes: Irregular, (+) ESM Respiratory: Yes: Bilateral Rales / Rhonchi Extremities: No: Cold Edema: No Neurological: Yes: Alert, Oriented Psychiatric: No: Agitated Intake & Output 09/03/18 09/04/18 09/05/18 09/06/18 23:59 23:59 23:59 23:59 Intake Total 1100 1290 1200 60 Output Total 2400 Balance -1300 1290 1200 60 Weight 133 lb 12.8 oz 133 lb 9.6 oz 133 lb 9.6 oz 133 lb 9.6 oz Problem List - Problems (1) Pneumonia Code(s): J18.9 - PNEUMONIA, UNSPECIFIED ORGANISM (2) Acute on chronic diastolic CHF (congestive heart failure) Code(s): I50.33 - ACUTE ON CHRONIC DIASTOLIC (CONGESTIVE) HEART FAILURE (3) Hypothyroid Code(s): E03.9 - HYPOTHYROIDISM, UNSPECIFIED (4) Pneumonia Code(s): J18.9 - PNEUMONIA, UNSPECIFIED ORGANISM (5) Anemia Code(s): D64.9 - ANEMIA, UNSPECIFIED Qualifiers: Other causes of anemia: acute posthemorrhagic Qualified Code(s): D62 - Acute posthemorrhagic anemia (6) Atrial fibrillation Code(s): I48.91 - UNSPECIFIED ATRIAL FIBRILLATION Qualifiers: Atrial fibrillation type: persistent Qualified Code(s): I48.1 - Persistent atrial fibrillation (7) Biventricular automatic implantable cardioverter defibrillator in situ Code(s): Z95.810 - PRESENCE OF AUTOMATIC (IMPLANTABLE) CARDIAC DEFIBRILLATOR (8) Failure to thrive Code(s): [id number] - IMP PNEUMONIA ASHD NON-ISCHEMIC CARDIOMYOPATHY S/P ICD ACUTE ON CHRONIC CHF AFIB HTN (+) TROPONIN ACUTE BRONCHOSPASM PLAN ABX PER ID INHALED BRONCHODILATORS O2 NEEDED MEDROL LASIX DAILY WT STRICT I+OS CHEST PT ROBITUSSIN DM INCENTIVE SPIROMETER DR RUIZ
--- NOTE | 2018-09-06 14:08 | PN ---
Physical Exam: SUBJECTIVE: Patient seen and examined; large mucous plug from posterior oropharynx removed today; patient feels a little betterlwants to try and get oob today OBJECTIVE: Vital Signs Period Temp Pulse Resp BP Sys/Alvares Pulse Ox Last 24 Hr 97.2 F-98.0 F 54-57 16-18 130-182/68-80 95-95 GENERAL: The patient is awake, alert, and fully oriented, sitting up in chair LUNGS: b/l congestion; improved HEART: Regular rate and rhythm, S1, S2 without murmur, rub or gallop. ABDOMEN: Soft, nontender, nondistended, normoactive bowel sounds, no guarding, no rebound, no hepatosplenomegaly, no masses. EXTREMITIES: 2+ pulses, warm, well-perfused, no edema. NEUROLOGICAL: Cranial nerves II through XII grossly intact. Normal speech, gait not observed. PSYCH: Normal mood, normal affect. SKIN: Warm, dry, normal turgor, no rashes or lesions noted Laboratory Results - last 24 hr 09/06/18 09/06/18 09/06/18 06:23 06:23 06:23 WBC 9.9 RBC 4.48 Hgb 13.9 Hct 42.8 MCV 95.6 MCH 31.0 MCHC 32.5 RDW 15.4 Plt Count 308 D MPV 8.1 Absolute Neuts (auto) 8.8 H Neutrophils % 88.1 H D Lymphocytes % 7.9 L D Monocytes % 3.8 Eosinophils % 0.0 D Basophils % 0.2 Nucleated RBC % 0 PT with INR 29.20 H INR 2.45 H Sodium 140 Potassium 4.1 Chloride 95 L Carbon Dioxide 36 H Anion Gap 8 BUN 35 H Creatinine 0.9 Creat Clearance w eGFR 59.23 Random Glucose 144 H Calcium 9.2 Phosphorus 3.0 Magnesium 1.9 Active Medications Generic Name Dose Route Start Last Admin Trade Name Freq PRN Reason Stop Dose Admin Albuterol Sulfate 1 amp 08/31/18 18:53 Ventolin 0.042trength) - NEB Q4H PRN SHORT OF BREATH/WHEEZING Albuterol/Ipratropium 1 amp 08/31/18 20:00 09/06/18 12:15 Duoneb - NEB 1 amp RQID ANANT Administration Ascorbic Acid 500 mg 09/01/18 10:00 09/06/18 09:48 Vitamin C - PO 500 mg DAILY ANANT Administration Calcium Carbonate/Cholecalciferol 1 tab 08/31/18 22:00 09/06/18 09:48 Os-Wil 500+D - PO 1 tab BID ANANT Administration Carvedilol 25 mg 08/31/18 22:00 09/06/18 09:48 Coreg - PO 25 mg BID ANANT Administration Cholecalciferol 1,000 unit 09/01/18 10:00 09/06/18 09:55 Vitamin D3 - PO 1,000 unit DAILY ANANT Administration Digoxin 0.125 mg 09/01/18 10:00 09/05/18 10:03 Lanoxin - PO Not Given Q2D@1000 ANANT Furosemide 40 mg 09/03/18 10:15 09/06/18 09:48 Lasix - PO 40 mg DAILY ANANT Administration Gabapentin 300 mg 09/01/18 10:00 09/06/18 09:48 Neurontin - PO 300 mg DAILY ANANT Administration Piperacillin Sod/Tazobactam 50 mls @ 100 mls/hr 09/01/18 18:00 09/06/18 09:48 Sod 3.375 gm/ Dextrose IVPB 100 mls/hr Q8H-IV ANANT Administration Protocol Levothyroxine Sodium 25 mcg 09/01/18 07:00 09/06/18 06:54 Synthroid - PO 25 mcg DAILY@0700 ANANT Administration Lisinopril 5 mg 09/05/18 22:00 09/06/18 09:47 Prinivil PO 5 mg BID ANANT Administration Loratadine 10 mg 09/01/18 10:00 09/06/18 09:47 Claritin - PO 10 mg DAILY ANANT Administration Methylprednisolone Sodium Succinate 40 mg 09/05/18 15:30 09/06/18 09:56 Solu-Medrol - IVPUSH 40 mg Q8H-IV ANANT Administration Senna 1 tab 08/31/18 18:42 Senna - PO DAILY PRN CONSTIPATION Silver Sulfadiazine 1 applic 09/01/18 10:00 09/05/18 10:10 Silvadene - TP Not Given DAILY ANANT Warfarin Sodium 5 mg 09/04/18 18:00 09/05/18 18:02 Coumadin - PO 5 mg DAILY@1800 ANANT Administration ASSESSMENT/PLAN: 87 year old female with past medical history of afib on coumadin, chronic systolic HF (EF 45%), s/p PPM/ICD, herpes, HTN, CKD, sustained 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 lower extremities, while sitting next to heater a month ago, s/p wound vacc and skin graft, currently in rehab, now with cough, white sputum production , CXR +PNA #sepsis secondary HCAP -IV antibiotic to cover for HCAP; -broad for now, zosyn, azithromycin -CXR with RLL; -chest CT -esdras ID rec #hypertension: -lisinopril; increase #contraction alkalosis; -decrease lasix to 20daily #hypokalemia:resolved #Elevated trop; ml sec to demand ischemia -trended down #Atrial fibrillation on coumadin' rate controlled with dig;coreg -warfarin; 5mg po ; -monitor INR 2.85; cont 5mg po daily #Chronic systolic chf: -40 lasix qd -euvolemic #Recent excisional debridement/Skin grafting to bilateral lower extremity 3rd degree wiseman #HTN; #s/p PPM/ICD #CKD stage II #Herpes Shingles #Chronic anemia #hypothyroid Physical therapy VTE: on warfarin GI; ppl ; protonix
--- NOTE | 2018-09-06 15:51 | PN ---
Progress Note (short form) - Note Progress Note: congested cough Vital Signs Period Temp Pulse Resp BP Sys/Alvares Pulse Ox Last 24 Hr 97.2 F-98.0 F 52-57 16-22 130-182/68-80 95-95 cor-rrr lungs bilateral rhonchi abd soft,nt ext no edema CBC, BMP 09/06/18 06:23 09/06/18 06:23 Microbiology 08/31/18 13:15 Blood - Peripheral Venous Blood Culture - Final NO GROWTH AFTER 5 DAYS INCUBATION 08/31/18 13:15 Blood - Peripheral Venous Blood Culture - Final NO GROWTH AFTER 5 DAYS INCUBATION 09/02/18 11:00 Nares - Right Nares MRSA Screen - Final NO MRSA ISOLATED 09/02/18 11:00 Nares - Left Nares MRSA Screen - Final NO MRSA ISOLATED 08/31/18 15:51 Urine - Urine - Catheterized Urine Culture - Final NO GROWTH OBTAINED 09/01/18 13:00 Urine For Antigen Detection Legionella Antigen - Final 09/01/18 13:00 Urine For Antigen Detection Streptococcus pneumoniae Antigen (M - Final chest ct noted Current Medications Albuterol Sulfate (Ventolin 0.042trength) -) 1 amp NEB Q4H PRN PRN Reason: SHORT OF BREATH/WHEEZING Albuterol/Ipratropium (Duoneb -) 1 amp NEB RQID [facility] Last Admin: 09/06/18 12:15 Dose: 1 amp Ascorbic Acid (Vitamin C -) 500 mg PO DAILY [facility] Last Admin: 09/06/18 09:48 Dose: 500 mg Calcium Carbonate/Cholecalciferol (Os-Wil 500+D -) 1 tab PO BID [facility] Last Admin: 09/06/18 09:48 Dose: 1 tab Carvedilol (Coreg -) 25 mg PO BID [facility] Last Admin: 09/06/18 09:48 Dose: 25 mg Cholecalciferol (Vitamin D3 -) 1,000 unit PO DAILY [facility] Last Admin: 09/06/18 09:55 Dose: 1,000 unit Digoxin (Lanoxin -) 0.125 mg PO Q2D@1000 [facility] Last Admin: 09/05/18 10:03 Dose: Not Given Furosemide (Lasix -) 20 mg PO DAILY [facility] Gabapentin (Neurontin -) 300 mg PO DAILY [facility] Last Admin: 09/06/18 09:48 Dose: 300 mg Piperacillin Sod/Tazobactam (Sod 3.375 gm/ Dextrose) 50 mls @ 100 mls/hr IVPB Q8H-IV [facility]; Protocol Last Admin: 09/06/18 09:48 Dose: 100 mls/hr Levothyroxine Sodium (Synthroid -) 25 mcg PO DAILY@0700 [facility] Last Admin: 09/06/18 06:54 Dose: 25 mcg Lisinopril (Prinivil) 10 mg PO BID [facility] Loratadine (Claritin -) 10 mg PO DAILY [facility] Last Admin: 09/06/18 09:47 Dose: 10 mg Methylprednisolone Sodium Succinate (Solu-Medrol -) 40 mg IVPUSH Q8H-IV [facility] Last Admin: 09/06/18 09:56 Dose: 40 mg Pantoprazole Sodium (Protonix -) 20 mg PO DAILY [facility] Senna (Senna -) 1 tab PO DAILY PRN PRN Reason: CONSTIPATION Silver Sulfadiazine (Silvadene -) 1 applic TP DAILY [facility] Last Admin: 09/05/18 10:10 Dose: Not Given Warfarin Sodium (Coumadin -) 5 mg PO DAILY@1800 [facility] Last Admin: 09/05/18 18:02 Dose: 5 mg a/p HCAP- continue zosyn day #6 has completed 5 days zithromax urine legionella antigen negative sputum culture ordered swab nares for MRSA negative continue nebs and steroids s/p wiseman to her legs- [facility] history of chf- on lasix d/w hospitalist Problem List - Problems (1) Pneumonia Code(s): J18.9 - PNEUMONIA, UNSPECIFIED ORGANISM
[2018-09-06] MEDS: WARFARIN NA 5 MG TABLET (UD) PO SCH (18:22)
[2018-09-06] MEDS: LISINOPRIL 10 MG TABLET (FP) PO SCH (21:17)
[2018-09-06] MEDS ORDERED: SENNOSIDES 8.6MG TABLET (FP) PO PRN (23:18)
[2018-09-07] MEDS ORDERED: DEXTROSE 5%-WATER - 50 ML IVPB ONE ×3 (02:23→20:13)
[2018-09-07] MEDS ORDERED: PIPERACILLIN/TAZOBACTAM 3.375 GM VIAL IVPB ONE ×3 (02:23→20:13)
[2018-09-07] MEDS: methylPREDNISolone NA SUCC 40 MG/1 ML VIAL IVPUSH SCH ×3 (02:26→21:22)
[2018-09-07] MEDS: PIPERACILLIN/TAZOB 3.375 GM 3.375 GM in DEXTROSE 5%-WATER - 50 ML IVPB SCH ×3 (02:27→20:17)
[2018-09-07] MEDS: LEVOTHYROXINE NA 25 MCG TABLET (FP) PO SCH (06:20)
[2018-09-07] MEDS: ALBUTEROL SO4 2.5/IPRATROPIUM 0.5 INH SOL 3 ML VIAL.NEB. NEB SCH ×4 (07:50→20:25)
[2018-09-07 08:20] LABS: BASO % 0.1 % (0-2.0); HEMATOCRIT 43.1 % (32.4-45.2); LYMPH % 5.4 % (8-40); MCHC 32.4 g/dl (32.0-36.0); MEAN CELL VOLUME 95.6 fl (80-96); MONO % 3.9 % (3.8-10.2); NEUT % 90.6 % (42.8-82.8); PLATELET COUNT 301 K/MM3 (134-434); RBC 4.51 M/mm3 (3.60-5.2); RDW 15.5 % (11.6-15.6); WHITE BLOOD COUNT 12.6 K/mm3 (4.0-10.0)
[2018-09-07 08:36] LABS: INR 2.88 (0.83-1.09); PROTHROMBIN TIME (PATIENT) 34.4 SEC (9.7-13.0)
[2018-09-07 08:45] LABS: ANION GAP 9 MMOL/L (8-16); BLOOD UREA NITROGEN 34 mg/dL (7-18); CHLORIDE 95 mmol/L (98-107); CO2 37 mmol/L (21-32); GLUCOSE,RANDOM 146 mg/dL (74-106); MAGNESIUM 1.8 mg/dL (1.8-2.4); PHOSPHOROUS 3.6 mg/dL (2.5-4.9); SODIUM 140 mmol/L (136-145)
--- NOTE | 2018-09-07 10:49 | PN ---
Progress Note (short form) - Note Progress Note: s: no cp palps dizzy; sob slowly improving o: Vital Signs Period Temp Pulse Resp BP Sys/Alvares Pulse Ox Last 24 Hr 97.4 F-98.1 F 50-56 18-22 127-168/53-100 96 Constitutional: Yes: Well Nourished, No Distress, Calm Cardiovascular: Yes: Regular Rate and Rhythm, Murmur (soft HSM apex), S1, S2. No: JVD, Gallop, S3, S4 Respiratory: Yes: Regular, Rales (bases), diffuse expiratory wheezes Extremities: No: Cold Edema: No Neurological: Yes: Alert, Oriented Psychiatric: No: Agitated no jaundice diaphoresis Current Medications Generic Name Dose Route Start Last Admin Trade Name Freq PRN Reason Stop Dose Admin Albuterol Sulfate 1 amp 09/06/18 23:18 Ventolin 0.042trength) - NEB Q4H PRN SHORT OF BREATH/WHEEZING Albuterol/Ipratropium 1 amp 09/07/18 08:00 09/07/18 07:50 Duoneb - NEB 1 amp RQID [facility] Administration Ascorbic Acid 500 mg 09/07/18 10:00 Vitamin C - PO DAILY [facility] Calcium Carbonate/Cholecalciferol 1 tab 09/07/18 10:00 Os-Wil 500+D - PO BID [facility] Carvedilol 25 mg 09/07/18 10:00 Coreg - PO BID [facility] Cholecalciferol 1,000 unit 09/07/18 10:00 Vitamin D3 - PO DAILY [facility] Digoxin 0.125 mg 09/07/18 10:00 Lanoxin - PO Q2D@1000 [facility] Furosemide 20 mg 09/06/18 14:09 Lasix - PO DAILY [facility] Gabapentin 300 mg 09/07/18 10:00 Neurontin - PO DAILY [facility] Piperacillin Sod/Tazobactam 50 mls @ 100 mls/hr 09/07/18 02:00 09/07/18 02:27 Sod 3.375 gm/ Dextrose IVPB 100 mls/hr Q8H-IV [facility] Administration Protocol Levothyroxine Sodium 25 mcg 09/07/18 07:00 09/07/18 06:20 Synthroid - PO 25 mcg DAILY@0700 [facility] Administration Lisinopril 10 mg 09/06/18 14:10 09/06/18 21:17 Prinivil PO 10 mg BID [facility] Administration Loratadine 10 mg 09/07/18 10:00 Claritin - PO DAILY [facility] Methylprednisolone Sodium Succinate 40 mg 09/07/18 22:00 Solu-Medrol - IVPUSH BID [facility] Pantoprazole Sodium 20 mg 09/07/18 10:00 Protonix - PO DAILY [facility] Senna 1 tab 09/06/18 23:18 Senna - PO DAILY PRN CONSTIPATION Silver Sulfadiazine 1 applic 09/07/18 10:00 Silvadene - TP DAILY [facility] Warfarin Sodium 5 mg 09/04/18 18:00 09/06/18 18:22 Coumadin - PO 5 mg DAILY@1800 [facility] Administration CBC, BMP 09/07/18 08:00 09/07/18 08:00 ct chest: pna, no chf ecg: afib, vpaced echo 08/2014: mild lve, lvef 35%, global hk, nl rv, mild-mod mr, mod tr, mod phtn, increased rap, nl lap a/p: 88 f hx syst chf (nicm, 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 sob, pna, acute syst CHF: -cont abx per primary -no signs fluid overload/chf - on PO lasix -no signs acs -nebs, steroids per primary chronic syst chf: -has been on lasix 40 po qd but appears dry, agree with lower dose of 20 qd. -s/p biv icd, nl fcn on ecg/tele htn: -sbp not well controlled here -has longstanding history of orthostasis with prior syncope -incr lisinopril 2.5 bid to 5 bid--NOTE: should go back down to 2.5 bid when prednisone is stopped, as suspect she will develope symptomatic orthostatic hypotension again if remains on higher dose off steroids--please include this in transfer instructions when pt goes to [facility] -cont carvedilol afib: -rate controlled with bb, dig, continue -cont coumadin per INR elevated trops: -borderline trop elevation with flat trend and nl ck similar to prior baseline values, not c/w acs
[2018-09-07] MEDS: ASCORBIC ACID 500 MG TABLET (FP) PO SCH (10:57)
[2018-09-07] MEDS: CHOLECALCIFEROL (VITAMIN D3) 1,000 UNIT TABLET (FP) PO SCH (10:57)
[2018-09-07] MEDS: LORATADINE 10 MG TABLET PO SCH (10:57)
[2018-09-07] MEDS: CALCIUM 500MG/VIT-D 200 UNITS COMBO TABLET (FP) PO SCH ×2 (10:57→21:22)
[2018-09-07] MEDS: LISINOPRIL 10 MG TABLET (FP) PO SCH ×2 (10:57→21:22)
[2018-09-07] MEDS: FUROSEMIDE 20 MG TABLET (FP) PO SCH (10:57)
[2018-09-07] MEDS: GABAPENTIN 300 MG CAPSULE (FP) PO SCH (10:57)
[2018-09-07] MEDS: PANTOPRAZOLE 20 MG TABLET (FP) PO SCH (10:57)
[2018-09-07] MEDS: DIGOXIN 0.125 MG TABLET (FP) PO SCH (11:00)
[2018-09-07] MEDS: CARVEDILOL 25 MG TABLET (FP) PO SCH ×2 (11:00→21:22)
[2018-09-07] MEDS: SILVER SULFADIAZINE 1% TOP CREAM 400 GM JAR TP SCH (12:00)
--- NOTE | 2018-09-07 12:38 | PN ---
Progress Note, Physician History of Present Illness: PULMONARY ALERT,OOB-CHAIR,STILL C/O SOB - Current Medication List Current Medications: Active Medications Albuterol Sulfate (Ventolin 0.042trength) -) 1 amp NEB Q4H PRN PRN Reason: SHORT OF BREATH/WHEEZING Albuterol/Ipratropium (Duoneb -) 1 amp NEB RQID [facility] Last Admin: 09/07/18 11:45 Dose: 1 amp Ascorbic Acid (Vitamin C -) 500 mg PO DAILY [facility] Last Admin: 09/07/18 10:57 Dose: 500 mg Calcium Carbonate/Cholecalciferol (Os-Wil 500+D -) 1 tab PO BID [facility] Last Admin: 09/07/18 10:57 Dose: 1 tab Carvedilol (Coreg -) 25 mg PO BID [facility] Last Admin: 09/07/18 11:00 Dose: Not Given Cholecalciferol (Vitamin D3 -) 1,000 unit PO DAILY [facility] Last Admin: 09/07/18 10:57 Dose: 1,000 unit Digoxin (Lanoxin -) 0.125 mg PO Q2D@1000 [facility] Last Admin: 09/07/18 11:00 Dose: Not Given Furosemide (Lasix -) 20 mg PO DAILY [facility] Last Admin: 09/07/18 10:57 Dose: 20 mg Gabapentin (Neurontin -) 300 mg PO DAILY [facility] Last Admin: 09/07/18 10:57 Dose: 300 mg Piperacillin Sod/Tazobactam (Sod 3.375 gm/ Dextrose) 50 mls @ 100 mls/hr IVPB Q8H-IV [facility]; Protocol Last Admin: 09/07/18 10:59 Dose: 100 mls/hr Levothyroxine Sodium (Synthroid -) 25 mcg PO DAILY@0700 [facility] Last Admin: 09/07/18 06:20 Dose: 25 mcg Lisinopril (Prinivil) 10 mg PO BID [facility] Last Admin: 09/07/18 10:57 Dose: 10 mg Loratadine (Claritin -) 10 mg PO DAILY [facility] Last Admin: 09/07/18 10:57 Dose: 10 mg Methylprednisolone Sodium Succinate (Solu-Medrol -) 40 mg IVPUSH BID [facility] Pantoprazole Sodium (Protonix -) 20 mg PO DAILY [facility] Last Admin: 09/07/18 10:57 Dose: 20 mg Senna (Senna -) 1 tab PO DAILY PRN PRN Reason: CONSTIPATION Silver Sulfadiazine (Silvadene -) 1 applic TP DAILY [facility] Warfarin Sodium (Coumadin -) 5 mg PO DAILY@1800 [facility] Last Admin: 09/06/18 18:22 Dose: 5 mg - Objective Vital Signs: Vital Signs Temperature 97.7 F 09/07/18 06:00 Pulse Rate 50 L 09/07/18 11:00 Respiratory Rate 20 09/07/18 11:00 Blood Pressure 148/65 09/07/18 11:00 O2 Sat by Pulse Oximetry (%) 96 09/06/18 22:00 Constitutional: Yes: Well Nourished, Calm Eyes: Yes: WNL HENT: Yes: WNL Neck: Yes: WNL Cardiovascular: Yes: Pulse Irregular, S1, S2 Respiratory: Yes: Rhonchi (BILATERAL WHEEZES AND RHONCHI), Wheezes Gastrointestinal: Yes: Normal Bowel Sounds, Soft Extremities: Yes: WNL Edema: No Labs: CBC, BMP 09/07/18 08:00 09/07/18 08:00 INR, PTT INR 2.88 (0.83-1.09) H 09/07/18 08:00 Problem List - Problems (1) Pneumonia Code(s): J18.9 - PNEUMONIA, UNSPECIFIED ORGANISM (2) Acute on chronic diastolic CHF (congestive heart failure) Code(s): I50.33 - ACUTE ON CHRONIC DIASTOLIC (CONGESTIVE) HEART FAILURE (3) Hypothyroid Code(s): E03.9 - HYPOTHYROIDISM, UNSPECIFIED (4) Pneumonia Code(s): J18.9 - PNEUMONIA, UNSPECIFIED ORGANISM (5) Anemia Code(s): D64.9 - ANEMIA, UNSPECIFIED Qualifiers: Other causes of anemia: acute posthemorrhagic Qualified Code(s): D62 - Acute posthemorrhagic anemia (6) Atrial fibrillation Code(s): I48.91 - UNSPECIFIED ATRIAL FIBRILLATION Qualifiers: Atrial fibrillation type: persistent Qualified Code(s): I48.1 - Persistent atrial fibrillation (7) Biventricular automatic implantable cardioverter defibrillator in situ Code(s): Z95.810 - PRESENCE OF AUTOMATIC (IMPLANTABLE) CARDIAC DEFIBRILLATOR (8) Failure to thrive Code(s): [id number] - Assessment/Plan IMP PNEUMONIA ASHD NON-ISCHEMIC CARDIOMYOPATHY S/P ICD ACUTE ON CHRONIC CHF AFIB HTN + TROPONIN PLAN ABX PER ID INHALED BRONCHODILATORS O2 CONTINUE MEDROL LASIX DAILY WT STRICT I+OS CHEST PT ROBITUSSIN DM INCENTIVE SPIROMETER DR RODRIGUEZ Problem List - Problems (1) Pneumonia Code(s): J18.9 - PNEUMONIA, UNSPECIFIED ORGANISM (2) Acute on chronic diastolic CHF (congestive heart failure) Code(s): I50.33 - ACUTE ON CHRONIC DIASTOLIC (CONGESTIVE) HEART FAILURE (3) Hypothyroid Code(s): E03.9 - HYPOTHYROIDISM, UNSPECIFIED (4) Pneumonia Code(s): J18.9 - PNEUMONIA, UNSPECIFIED ORGANISM (5) Anemia Code(s): D64.9 - ANEMIA, UNSPECIFIED Qualifiers: Other causes of anemia: acute posthemorrhagic Qualified Code(s): D62 - Acute posthemorrhagic anemia (6) Atrial fibrillation Code(s): I48.91 - UNSPECIFIED ATRIAL FIBRILLATION Qualifiers: Atrial fibrillation type: persistent Qualified Code(s): I48.1 - Persistent atrial fibrillation (7) Biventricular automatic implantable cardioverter defibrillator in situ Code(s): Z95.810 - PRESENCE OF AUTOMATIC (IMPLANTABLE) CARDIAC DEFIBRILLATOR (8) Failure to thrive Code(s): PSR3344 -
--- NOTE | 2018-09-07 16:18 | PN ---
Progress Note (short form) - Note Progress Note: congested cough persists oob in chair Vital Signs Period Temp Pulse Resp BP Sys/Alvares Pulse Ox Last 24 Hr 97.7 F-98.1 F 50-56 18-20 127-168/53-100 96 cor-rrr lungs bilateral rhonchi abd soft,nt ext no edema chest ct noted CBC, BMP 09/07/18 08:00 09/07/18 08:00 Microbiology 09/06/18 11:24 Throat Throat Culture - Final NO BETA HEMOLYTIC STREPTOCOCCI ISOLATED 08/31/18 13:15 Blood - Peripheral Venous Blood Culture - Final NO GROWTH AFTER 5 DAYS INCUBATION 08/31/18 13:15 Blood - Peripheral Venous Blood Culture - Final NO GROWTH AFTER 5 DAYS INCUBATION 09/02/18 11:00 Nares - Right Nares MRSA Screen - Final NO MRSA ISOLATED 09/02/18 11:00 Nares - Left Nares MRSA Screen - Final NO MRSA ISOLATED 08/31/18 15:51 Urine - Urine - Catheterized Urine Culture - Final NO GROWTH OBTAINED 09/01/18 13:00 Urine For Antigen Detection Legionella Antigen - Final 09/01/18 13:00 Urine For Antigen Detection Streptococcus pneumoniae Antigen (M - Final Current Medications Albuterol Sulfate (Ventolin 0.042trength) -) 1 amp NEB Q4H PRN PRN Reason: SHORT OF BREATH/WHEEZING Albuterol/Ipratropium (Duoneb -) 1 amp NEB RQID [facility] Last Admin: 09/07/18 11:45 Dose: 1 amp Ascorbic Acid (Vitamin C -) 500 mg PO DAILY [facility] Last Admin: 09/07/18 10:57 Dose: 500 mg Calcium Carbonate/Cholecalciferol (Os-Wil 500+D -) 1 tab PO BID [facility] Last Admin: 09/07/18 10:57 Dose: 1 tab Carvedilol (Coreg -) 25 mg PO BID [facility] Last Admin: 09/07/18 11:00 Dose: Not Given Cholecalciferol (Vitamin D3 -) 1,000 unit PO DAILY [facility] Last Admin: 09/07/18 10:57 Dose: 1,000 unit Digoxin (Lanoxin -) 0.125 mg PO Q2D@1000 [facility] Last Admin: 09/07/18 11:00 Dose: Not Given Furosemide (Lasix -) 20 mg PO DAILY [facility] Last Admin: 09/07/18 10:57 Dose: 20 mg Gabapentin (Neurontin -) 300 mg PO DAILY [facility] Last Admin: 09/07/18 10:57 Dose: 300 mg Guaifenesin (Mucinex -) 1,200 mg PO BID [facility] Piperacillin Sod/Tazobactam (Sod 3.375 gm/ Dextrose) 50 mls @ 100 mls/hr IVPB Q8H-IV [facility]; Protocol Last Admin: 09/07/18 10:59 Dose: 100 mls/hr Levothyroxine Sodium (Synthroid -) 25 mcg PO DAILY@0700 [facility] Last Admin: 09/07/18 06:20 Dose: 25 mcg Lisinopril (Prinivil) 10 mg PO BID [facility] Last Admin: 09/07/18 10:57 Dose: 10 mg Loratadine (Claritin -) 10 mg PO DAILY [facility] Last Admin: 09/07/18 10:57 Dose: 10 mg Methylprednisolone Sodium Succinate (Solu-Medrol -) 40 mg IVPUSH BID [facility] Pantoprazole Sodium (Protonix -) 20 mg PO DAILY [facility] Last Admin: 09/07/18 10:57 Dose: 20 mg Senna (Senna -) 1 tab PO DAILY PRN PRN Reason: CONSTIPATION Silver Sulfadiazine (Silvadene -) 1 applic TP DAILY [facility] Warfarin Sodium (Coumadin -) 5 mg PO DAILY@1800 [facility] Last Admin: 09/06/18 18:22 Dose: 5 mg a/p HCAP- continue zosyn day #7 has completed 5 days zithromax urine legionella antigen negative sputum culture ordered swab nares for MRSA negative continue nebs and steroids add mucolytics s/p wiseman to her legs- [facility] history of chf- on lasix d/w hospitalist d/w pulmonary Problem List - Problems (1) Pneumonia Code(s): J18.9 - PNEUMONIA, UNSPECIFIED ORGANISM
[2018-09-07] MEDS: WARFARIN NA 5 MG TABLET (UD) PO SCH (17:39)
--- NOTE | 2018-09-07 18:21 | PN ---
Physical Exam: SUBJECTIVE: Patient seen and examined much better today; wlaked with PT; less weak; still with cough OBJECTIVE: Vital Signs Period Temp Pulse Resp BP Sys/Alvares Pulse Ox Last 24 Hr 97.7 F-98.1 F 48-56 20-20 144-168/65-100 96 GENERAL: The patient is awake, alert, and fully oriented, in no acute distress. HEAD: Normal with no signs of trauma. LUNGS: congestion improving HEART: Regular rate and rhythm, S1, S2 without murmur, rub or gallop. ABDOMEN: Soft, nontender, nondistended, normoactive bowel sounds, no guarding, no rebound, no hepatosplenomegaly, no masses. EXTREMITIES: 2+ pulses, warm, well-perfused, no edema. NEUROLOGICAL: Cranial nerves II through XII grossly intact. Normal speech, gait not observed. PSYCH: Normal mood, normal affect. SKIN: Warm, dry, normal turgor, no rashes or lesions noted Laboratory Results - last 24 hr 09/07/18 09/07/18 09/07/18 08:00 08:00 08:00 WBC 12.6 H RBC 4.51 Hgb 14.0 Hct 43.1 MCV 95.6 MCH 31.0 MCHC 32.4 RDW 15.5 Plt Count 301 MPV 8.0 Absolute Neuts (auto) 11.4 H Neutrophils % 90.6 H Lymphocytes % 5.4 L D Monocytes % 3.9 Eosinophils % 0.0 Basophils % 0.1 Nucleated RBC % 0 PT with INR 34.40 H INR 2.88 H Sodium 140 Potassium 4.0 Chloride 95 L Carbon Dioxide 37 H Anion Gap 9 BUN 34 H Creatinine 1.0 Creat Clearance w eGFR 52.45 Random Glucose 146 H Calcium 9.0 Phosphorus 3.6 Magnesium 1.8 Active Medications Generic Name Dose Route Start Last Admin Trade Name Freq PRN Reason Stop Dose Admin Albuterol Sulfate 1 amp 09/06/18 23:18 Ventolin 0.042trength) - NEB Q4H PRN SHORT OF BREATH/WHEEZING Albuterol/Ipratropium 1 amp 09/07/18 08:00 09/07/18 15:50 Duoneb - NEB 1 amp RQID [facility] Administration Ascorbic Acid 500 mg 09/07/18 10:00 09/07/18 10:57 Vitamin C - PO 500 mg DAILY [facility] Administration Calcium Carbonate/Cholecalciferol 1 tab 09/07/18 10:00 09/07/18 10:57 Os-Wil 500+D - PO 1 tab BID [facility] Administration Carvedilol 25 mg 09/07/18 10:00 09/07/18 11:00 Coreg - PO Not Given BID [facility] Cholecalciferol 1,000 unit 09/07/18 10:00 09/07/18 10:57 Vitamin D3 - PO 1,000 unit DAILY [facility] Administration Digoxin 0.125 mg 09/07/18 10:00 09/07/18 11:00 Lanoxin - PO Not Given Q2D@1000 [facility] Furosemide 20 mg 09/06/18 14:09 09/07/18 10:57 Lasix - PO 20 mg DAILY [facility] Administration Gabapentin 300 mg 09/07/18 10:00 09/07/18 10:57 Neurontin - PO 300 mg DAILY [facility] Administration Guaifenesin 1,200 mg 09/07/18 22:00 Mucinex - PO BID [facility] Piperacillin Sod/Tazobactam 50 mls @ 100 mls/hr 09/07/18 02:00 09/07/18 10:59 Sod 3.375 gm/ Dextrose IVPB 100 mls/hr Q8H-IV [facility] Administration Protocol Levothyroxine Sodium 25 mcg 09/07/18 07:00 09/07/18 06:20 Synthroid - PO 25 mcg DAILY@0700 [facility] Administration Lisinopril 10 mg 09/06/18 14:10 09/07/18 10:57 Prinivil PO 10 mg BID [facility] Administration Loratadine 10 mg 09/07/18 10:00 09/07/18 10:57 Claritin - PO 10 mg DAILY [facility] Administration Methylprednisolone Sodium Succinate 40 mg 09/07/18 22:00 Solu-Medrol - IVPUSH BID [facility] Pantoprazole Sodium 20 mg 09/07/18 10:00 09/07/18 10:57 Protonix - PO 20 mg DAILY [facility] Administration Senna 1 tab 09/06/18 23:18 Senna - PO DAILY PRN CONSTIPATION Silver Sulfadiazine 1 applic 09/07/18 10:00 09/07/18 12:00 Silvadene - TP Not Given DAILY [facility] Warfarin Sodium 5 mg 09/04/18 18:00 09/07/18 17:39 Coumadin - PO 5 mg DAILY@1800 [facility] Administration ASSESSMENT/PLAN: 87 year old female with past medical history of afib on coumadin, chronic systolic HF (EF 45%), s/p PPM/ICD, herpes, HTN, CKD, sustained 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 lower extremities, while sitting next to heater a month ago, s/p wound vacc and skin graft, currently in rehab, now with cough, white sputum production , CXR +PNA #sepsis secondary HCAP; improved -IV antibiotic to cover for HCAP; -broad for now, zosyn, azithromycin -CXR with RLL; -chest CT -esdras ID rec #hypertension: -lisinopril; increase #contraction alkalosis; improved -decrease lasix to 20daily #hypokalemia:resolved #Elevated trop; ml sec to demand ischemia -trended down #Atrial fibrillation on coumadin' rate controlled with dig;coreg -warfarin; 5mg po ; -monitor INR 2.85; cont 5mg po daily #Chronic systolic chf: -20 lasix qd -euvolemic #Recent excisional debridement/Skin grafting to bilateral lower extremity 3rd degree wiseman #HTN; #s/p PPM/ICD #CKD stage II #Herpes Shingles #Chronic anemia #hypothyroid Physical therapy Visit type - Emergency Visit Emergency Visit: Yes ED Registration Date: 08/31/18 Care time: The patient presented to the Emergency Department on the above date and was hospitalized for further evaluation of their emergent condition. - New Patient This patient is new to me today: Yes Date on this admission: 09/07/18 - Critical Care Critical Care patient: No
--- NOTE | 2018-09-07 18:35 | PN ---
Teaching Attending Note Name of Resident: Amanda Khan ATTENDING PHYSICIAN STATEMENT I saw and evaluated the patient. I reviewed the resident's note and discussed the case with the resident. I agree with the resident's findings and plan as documented. SUBJECTIVE: Ms Yuen says she is feeling better today. Still with wheezing and cough but improved. No cp or n/v. Sore throat much improved OBJECTIVE: Last Vital Signs Temp Pulse Resp BP Pulse Ox 36.6 C 48 L 20 144/84 96 09/07/18 14:10 09/07/18 14:10 09/07/18 14:10 09/07/18 14:10 09/06/18 22:00 Gen: nad Pulm: diffuse ronchi and wheezing but much improved today CV: rrr w/o m/r/g Abd: +bs, s/nt/nd Ext: no c/c/e CBC, BMP 09/07/18 08:00 09/07/18 08:00 ASSESSMENT AND PLAN: (1) Pneumonia Assessment/Plan: -continue zosyn per ID -case d/w Dr Snow and Dr Jones -decrease solumedrol to 40mg q12h -continues to improve -add mucinex to help expactoration Code(s): J18.9 - PNEUMONIA, UNSPECIFIED ORGANISM (2) Acute on chronic diastolic CHF (congestive heart failure) Assessment/Plan: -case d/w cardiology -continue lasix 20mg daily -continue digoxin Code(s): I50.33 - ACUTE ON CHRONIC DIASTOLIC (CONGESTIVE) HEART FAILURE (3) Atrial fibrillation Assessment/Plan: -continue coreg and digoxin -INR therapeutic Code(s): I48.91 - UNSPECIFIED ATRIAL FIBRILLATION Qualifiers: Atrial fibrillation type: persistent Qualified Code(s): I48.1 - Persistent atrial fibrillation (4) Hypertension Assessment/Plan: -increased lisinopril to 10mg bid while on high dose steroids -continue coreg and lasix -expect to decrease lisinopril as steroids are decreased -normally on lisinopril 2.5mg bid at home Code(s): I10 - ESSENTIAL (PRIMARY) HYPERTENSION Qualifiers: Hypertension type: essential hypertension Qualified Code(s): I10 - Essential (primary) hypertension (5) Hypothyroid Assessment/Plan: -continue synthroid Code(s): E03.9 - HYPOTHYROIDISM, UNSPECIFIED Problem List - Problems (1) Pneumonia Code(s): J18.9 - PNEUMONIA, UNSPECIFIED ORGANISM (2) Acute on chronic diastolic CHF (congestive heart failure) Code(s): I50.33 - ACUTE ON CHRONIC DIASTOLIC (CONGESTIVE) HEART FAILURE (3) Atrial fibrillation Code(s): I48.91 - UNSPECIFIED ATRIAL FIBRILLATION Qualifiers: Atrial fibrillation type: persistent Qualified Code(s): I48.1 - Persistent atrial fibrillation (4) Hypertension Code(s): I10 - ESSENTIAL (PRIMARY) HYPERTENSION Qualifiers: Hypertension type: essential hypertension Qualified Code(s): I10 - Essential (primary) hypertension (5) Hypothyroid Code(s): E03.9 - HYPOTHYROIDISM, UNSPECIFIED
[2018-09-07] MEDS: guaiFENesin 600 MG TABLET.ER (FP) PO SCH (21:22)
[2018-09-08] MEDS ORDERED: DEXTROSE 5%-WATER - 50 ML IVPB ONE ×3 (00:52→17:51)
[2018-09-08] MEDS ORDERED: PIPERACILLIN/TAZOBACTAM 3.375 GM VIAL IVPB ONE ×3 (00:52→17:51)
[2018-09-08] MEDS ORDERED: hydrALAZINE HCL 20 MG/ML VIAL IVPUSH ONE ×2 (01:34→02:15)
[2018-09-08] MEDS: PIPERACILLIN/TAZOB 3.375 GM 3.375 GM in DEXTROSE 5%-WATER - 50 ML IVPB SCH ×3 (02:28→17:57)
[2018-09-08] MEDS: LEVOTHYROXINE NA 25 MCG TABLET (FP) PO SCH (06:05)
[2018-09-08] MEDS: ALBUTEROL SO4 2.5/IPRATROPIUM 0.5 INH SOL 3 ML VIAL.NEB. NEB SCH (07:05)
[2018-09-08 07:06] LABS: INR 3.96 (0.83-1.09); PROTHROMBIN TIME (PATIENT) 47.4 SEC (9.7-13.0)
[2018-09-08 07:17] LABS: BASO % 0.1 % (0-2.0); HEMATOCRIT 43.3 % (32.4-45.2); LYMPH % 4.4 % (8-40); MCH 30.6 pg (25.7-33.7); MCHC 32.3 g/dl (32.0-36.0); MEAN CELL VOLUME 94.4 fl (80-96); MEAN PLT VOLUME 7.8 fl (7.5-11.1); MONO % 3.9 % (3.8-10.2); NEUT % 91.6 % (42.8-82.8); PLATELET COUNT 320 K/MM3 (134-434); RBC 4.59 M/mm3 (3.60-5.2); RDW 15.4 % (11.6-15.6); WHITE BLOOD COUNT 14.6 K/mm3 (4.0-10.0)
[2018-09-08 07:37] LABS: ANION GAP 4 MMOL/L (8-16); BLOOD UREA NITROGEN 35 mg/dL (7-18); CALCIUM 9.3 mg/dL (8.5-10.1); CHLORIDE 95 mmol/L (98-107); CO2 35 mmol/L (21-32); CREATININE 0.9 mg/dL (0.55-1.3); GLUCOSE,RANDOM 144 mg/dL (74-106); MAGNESIUM 2.2 mg/dL (1.8-2.4); PHOSPHOROUS 2.3 mg/dL (2.5-4.9); POTASSIUM 3.6 mmol/L (3.5-5.1); SODIUM 134 mmol/L (136-145)
[2018-09-08] MEDS: LORATADINE 10 MG TABLET PO SCH (09:20)
[2018-09-08] MEDS: guaiFENesin 600 MG TABLET.ER (FP) PO SCH ×2 (09:20→21:45)
[2018-09-08] MEDS: CARVEDILOL 25 MG TABLET (FP) PO SCH ×2 (09:20→23:15)
[2018-09-08] MEDS: FUROSEMIDE 20 MG TABLET (FP) PO SCH (09:21)
[2018-09-08] MEDS: CHOLECALCIFEROL (VITAMIN D3) 1,000 UNIT TABLET (FP) PO SCH (09:21)
[2018-09-08] MEDS: LISINOPRIL 10 MG TABLET (FP) PO SCH ×2 (09:21→21:44)
[2018-09-08] MEDS: CALCIUM 500MG/VIT-D 200 UNITS COMBO TABLET (FP) PO SCH ×2 (09:22→21:44)
[2018-09-08] MEDS: PANTOPRAZOLE 20 MG TABLET (FP) PO SCH (09:22)
[2018-09-08] MEDS: ASCORBIC ACID 500 MG TABLET (FP) PO SCH (09:22)
[2018-09-08] MEDS: GABAPENTIN 300 MG CAPSULE (FP) PO SCH (09:22)
[2018-09-08] MEDS: methylPREDNISolone NA SUCC 40 MG/1 ML VIAL IVPUSH SCH ×2 (09:22→21:44)
[2018-09-08] MEDS: SILVER SULFADIAZINE 1% TOP CREAM 400 GM JAR TP SCH (09:23)
[2018-09-08 09:40] LABS: ANISOCYTOSIS 0; MACROCYTOSIS 1+; PLATELET ESTIMATE NORMAL
--- NOTE | 2018-09-08 10:45 | PN ---
Progress Note (short form) - Note Progress Note: s: no cp palps dizzy; sob slowly improving o: Vital Signs Period Temp Pulse Resp BP Sys/Alvares Pulse Ox Last 24 Hr 97.3 F-98.1 F 48-60 20-20 135-179/57-92 96 Constitutional: Yes: Well Nourished, No Distress, Calm Cardiovascular: Yes: Regular Rate and Rhythm, Murmur (soft HSM apex), S1, S2. No: JVD, Gallop, S3, S4 Respiratory: Yes: Regular, Rales (bases), diffuse expiratory wheezes Extremities: No: Cold Edema: No Neurological: Yes: Alert, Oriented Psychiatric: No: Agitated no jaundice diaphoresis Current Medications Generic Name Dose Route Start Last Admin Trade Name Freq PRN Reason Stop Dose Admin Albuterol Sulfate 1 amp 09/06/18 23:18 Ventolin 0.042trength) - NEB Q4H PRN SHORT OF BREATH/WHEEZING Albuterol/Ipratropium 1 amp 09/07/18 08:00 09/08/18 07:05 Duoneb - NEB 1 amp RQID ANANT Administration Ascorbic Acid 500 mg 09/07/18 10:00 09/08/18 09:22 Vitamin C - PO 500 mg DAILY ANANT Administration Calcium Carbonate/Cholecalciferol 1 tab 09/07/18 10:00 09/08/18 09:22 Os-Wil 500+D - PO 1 tab BID ANANT Administration Carvedilol 25 mg 09/07/18 10:00 09/08/18 09:20 Coreg - PO Not Given BID ANANT Cholecalciferol 1,000 unit 09/07/18 10:00 09/08/18 09:21 Vitamin D3 - PO 1,000 unit DAILY ANANT Administration Digoxin 0.125 mg 09/07/18 10:00 09/07/18 11:00 Lanoxin - PO Not Given Q2D@1000 ANANT Furosemide 20 mg 09/06/18 14:09 09/08/18 09:21 Lasix - PO 20 mg DAILY ANANT Administration Gabapentin 300 mg 09/07/18 10:00 09/08/18 09:22 Neurontin - PO 300 mg DAILY ANANT Administration Guaifenesin 1,200 mg 09/07/18 22:00 09/08/18 09:20 Mucinex - PO 1,200 mg BID ANANT Administration Piperacillin Sod/Tazobactam 50 mls @ 100 mls/hr 09/07/18 02:00 09/08/18 09:23 Sod 3.375 gm/ Dextrose IVPB 100 mls/hr Q8H-IV ANANT Administration Protocol Levothyroxine Sodium 25 mcg 09/07/18 07:00 09/08/18 06:05 Synthroid - PO 25 mcg DAILY@0700 ANANT Administration Lisinopril 10 mg 09/06/18 14:10 09/08/18 09:21 Prinivil PO 10 mg BID ANANT Administration Loratadine 10 mg 09/07/18 10:00 09/08/18 09:20 Claritin - PO 10 mg DAILY ANANT Administration Methylprednisolone Sodium Succinate 40 mg 09/07/18 22:00 09/08/18 09:22 Solu-Medrol - IVPUSH 40 mg BID ANANT Administration Pantoprazole Sodium 20 mg 09/07/18 10:00 09/08/18 09:22 Protonix - PO 20 mg DAILY ANANT Administration Senna 1 tab 09/06/18 23:18 Senna - PO DAILY PRN CONSTIPATION Silver Sulfadiazine 1 applic 09/07/18 10:00 09/08/18 09:23 Silvadene - TP Not Given DAILY ANANT Warfarin Sodium 5 mg 09/04/18 18:00 09/07/18 17:39 Coumadin - PO 5 mg DAILY@1800 ANANT Administration CBC, BMP 09/08/18 06:30 09/08/18 06:30 ct chest: pna, no chf ecg: afib, vpaced echo 08/2014: mild lve, lvef 35%, global hk, nl rv, mild-mod mr, mod tr, mod phtn, increased rap, nl lap a/p: 88 f hx syst chf (nicm, 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 sob, pna, acute syst CHF: -cont abx per primary -no signs fluid overload/chf - on PO lasix -no signs acs -nebs, steroids per primary chronic syst chf: -cont lasix 20 po qd -s/p biv icd, nl fcn on ecg/tele htn: -sbp not well controlled here -has longstanding history of orthostasis with prior syncope -incr lisinopril 2.5 bid to 5 bid--NOTE: should go back down to 2.5 bid when prednisone is stopped, as suspect she will develope symptomatic orthostatic hypotension again if remains on higher dose off steroids--please include this in transfer instructions when pt goes to SNF -cont carvedilol afib: -rate controlled with bb, dig, continue -cont coumadin per INR elevated trops: -borderline trop elevation with flat trend and nl ck similar to prior baseline values, not c/w acs
--- NOTE | 2018-09-08 11:26 | PN ---
Progress Note, Physician Chief Complaint: Ms Yuen says she is feeling about the same. Still with coughing and sob. No cp or n/v. - Current Medication List Current Medications: Active Medications Albuterol Sulfate (Ventolin 0.042trength) -) 1 amp NEB Q4H PRN PRN Reason: SHORT OF BREATH/WHEEZING Albuterol/Ipratropium (Duoneb -) 1 amp NEB RQID [facility] Last Admin: 09/08/18 07:05 Dose: 1 amp Ascorbic Acid (Vitamin C -) 500 mg PO DAILY [facility] Last Admin: 09/08/18 09:22 Dose: 500 mg Calcium Carbonate/Cholecalciferol (Os-Wil 500+D -) 1 tab PO BID [facility] Last Admin: 09/08/18 09:22 Dose: 1 tab Carvedilol (Coreg -) 25 mg PO BID [facility] Last Admin: 09/08/18 09:20 Dose: Not Given Cholecalciferol (Vitamin D3 -) 1,000 unit PO DAILY [facility] Last Admin: 09/08/18 09:21 Dose: 1,000 unit Digoxin (Lanoxin -) 0.125 mg PO Q2D@1000 [facility] Last Admin: 09/07/18 11:00 Dose: Not Given Furosemide (Lasix -) 20 mg PO DAILY [facility] Last Admin: 09/08/18 09:21 Dose: 20 mg Gabapentin (Neurontin -) 300 mg PO DAILY [facility] Last Admin: 09/08/18 09:22 Dose: 300 mg Guaifenesin (Mucinex -) 1,200 mg PO BID [facility] Last Admin: 09/08/18 09:20 Dose: 1,200 mg Piperacillin Sod/Tazobactam (Sod 3.375 gm/ Dextrose) 50 mls @ 100 mls/hr IVPB Q8H-IV [facility]; Protocol Last Admin: 09/08/18 09:23 Dose: 100 mls/hr Levothyroxine Sodium (Synthroid -) 25 mcg PO DAILY@0700 [facility] Last Admin: 09/08/18 06:05 Dose: 25 mcg Lisinopril (Prinivil) 10 mg PO BID [facility] Last Admin: 09/08/18 09:21 Dose: 10 mg Loratadine (Claritin -) 10 mg PO DAILY [facility] Last Admin: 09/08/18 09:20 Dose: 10 mg Methylprednisolone Sodium Succinate (Solu-Medrol -) 40 mg IVPUSH BID [facility] Last Admin: 09/08/18 09:22 Dose: 40 mg Pantoprazole Sodium (Protonix -) 20 mg PO DAILY [facility] Last Admin: 09/08/18 09:22 Dose: 20 mg Senna (Senna -) 1 tab PO DAILY PRN PRN Reason: CONSTIPATION Silver Sulfadiazine (Silvadene -) 1 applic TP DAILY [facility] Last Admin: 09/08/18 09:23 Dose: Not Given Warfarin Sodium (Coumadin -) 5 mg PO DAILY@1800 [facility] Last Admin: 09/07/18 17:39 Dose: 5 mg - Objective Vital Signs: Vital Signs Temperature 36.4 C L 09/08/18 06:00 Pulse Rate 50 L 09/08/18 09:09 Respiratory Rate 20 09/08/18 09:09 Blood Pressure 135/70 09/08/18 09:09 O2 Sat by Pulse Oximetry (%) 96 09/07/18 22:00 Constitutional: Yes: Well Nourished, No Distress, Calm Cardiovascular: Yes: Regular Rate and Rhythm. No: Gallop, Murmur, Rub Respiratory: Yes: Regular, Rhonchi (diffuse, all lung garza), Wheezes. No: CTA Bilaterally, On Nasal O2, Rales, Tachypnea Gastrointestinal: Yes: Normal Bowel Sounds, Soft. No: Distention, Tenderness Extremities: Yes: Other (wrapped) Edema: No Labs: CBC, BMP 09/08/18 06:30 09/08/18 06:30 INR, PTT INR 3.96 (0.83-1.09) H 09/08/18 06:30 Problem List - Problems (1) Pneumonia Code(s): J18.9 - PNEUMONIA, UNSPECIFIED ORGANISM (2) Acute on chronic diastolic CHF (congestive heart failure) Code(s): I50.33 - ACUTE ON CHRONIC DIASTOLIC (CONGESTIVE) HEART FAILURE (3) Atrial fibrillation Code(s): I48.91 - UNSPECIFIED ATRIAL FIBRILLATION Qualifiers: Atrial fibrillation type: persistent Qualified Code(s): I48.1 - Persistent atrial fibrillation (4) Hypertension Code(s): I10 - ESSENTIAL (PRIMARY) HYPERTENSION Qualifiers: Hypertension type: essential hypertension Qualified Code(s): I10 - Essential (primary) hypertension (5) Hypothyroid Code(s): E03.9 - HYPOTHYROIDISM, UNSPECIFIED Assessment/Plan (1) Pneumonia Assessment/Plan: -continue zosyn -lung exam unchanged today -continue solumedrol at current dose -continue mucinex and bronchodilators Code(s): J18.9 - PNEUMONIA, UNSPECIFIED ORGANISM (2) Acute on chronic diastolic CHF (congestive heart failure) Assessment/Plan: -case d/w cardiology -continue lasix 20mg daily -continue digoxin Code(s): I50.33 - ACUTE ON CHRONIC DIASTOLIC (CONGESTIVE) HEART FAILURE (3) Atrial fibrillation Assessment/Plan: -continue coreg and digoxin -INR supratherapeutic -will hold coumadin 5mg today -recheck INR -restart tomorrow if corrects Code(s): I48.91 - UNSPECIFIED ATRIAL FIBRILLATION Qualifiers: Atrial fibrillation type: persistent Qualified Code(s): I48.1 - Persistent atrial fibrillation (4) Hypertension Assessment/Plan: -increased lisinopril to 10mg bid while on high dose steroids -continue coreg and lasix -expect to decrease lisinopril as steroids are decreased -normally on lisinopril 2.5mg bid at home Code(s): I10 - ESSENTIAL (PRIMARY) HYPERTENSION Qualifiers: Hypertension type: essential hypertension Qualified Code(s): I10 - Essential (primary) hypertension (5) Hypothyroid Assessment/Plan: -continue synthroid Code(s): E03.9 - HYPOTHYROIDISM, UNSPECIFIED
--- NOTE | 2018-09-08 11:56 | PN ---
Progress Note, Physician History of Present Illness: pulmonary alert,still c/o cough,congestion - Current Medication List Current Medications: Active Medications Albuterol Sulfate (Ventolin 0.042trength) -) 1 amp NEB Q4H PRN PRN Reason: SHORT OF BREATH/WHEEZING Albuterol/Ipratropium (Duoneb -) 1 amp NEB RQID [facility] Last Admin: 09/08/18 07:05 Dose: 1 amp Ascorbic Acid (Vitamin C -) 500 mg PO DAILY [facility] Last Admin: 09/08/18 09:22 Dose: 500 mg Calcium Carbonate/Cholecalciferol (Os-Wil 500+D -) 1 tab PO BID [facility] Last Admin: 09/08/18 09:22 Dose: 1 tab Carvedilol (Coreg -) 25 mg PO BID [facility] Last Admin: 09/08/18 09:20 Dose: Not Given Cholecalciferol (Vitamin D3 -) 1,000 unit PO DAILY [facility] Last Admin: 09/08/18 09:21 Dose: 1,000 unit Digoxin (Lanoxin -) 0.125 mg PO Q2D@1000 [facility] Last Admin: 09/07/18 11:00 Dose: Not Given Furosemide (Lasix -) 20 mg PO DAILY [facility] Last Admin: 09/08/18 09:21 Dose: 20 mg Gabapentin (Neurontin -) 300 mg PO DAILY [facility] Last Admin: 09/08/18 09:22 Dose: 300 mg Guaifenesin (Mucinex -) 1,200 mg PO BID [facility] Last Admin: 09/08/18 09:20 Dose: 1,200 mg Piperacillin Sod/Tazobactam (Sod 3.375 gm/ Dextrose) 50 mls @ 100 mls/hr IVPB Q8H-IV [facility]; Protocol Last Admin: 09/08/18 09:23 Dose: 100 mls/hr Levothyroxine Sodium (Synthroid -) 25 mcg PO DAILY@0700 [facility] Last Admin: 09/08/18 06:05 Dose: 25 mcg Lisinopril (Prinivil) 10 mg PO BID [facility] Last Admin: 09/08/18 09:21 Dose: 10 mg Loratadine (Claritin -) 10 mg PO DAILY [facility] Last Admin: 09/08/18 09:20 Dose: 10 mg Methylprednisolone Sodium Succinate (Solu-Medrol -) 40 mg IVPUSH BID [facility] Last Admin: 09/08/18 09:22 Dose: 40 mg Pantoprazole Sodium (Protonix -) 20 mg PO DAILY [facility] Last Admin: 09/08/18 09:22 Dose: 20 mg Senna (Senna -) 1 tab PO DAILY PRN PRN Reason: CONSTIPATION Silver Sulfadiazine (Silvadene -) 1 applic TP DAILY [facility] Last Admin: 09/08/18 09:23 Dose: Not Given - Objective Vital Signs: Vital Signs Temperature 97.5 F L 09/08/18 06:00 Pulse Rate 50 L 09/08/18 09:09 Respiratory Rate 20 09/08/18 10:00 Blood Pressure 135/70 09/08/18 09:09 O2 Sat by Pulse Oximetry (%) 94 L 09/08/18 10:00 Constitutional: Yes: Calm, Thin Eyes: Yes: WNL HENT: Yes: WNL Neck: Yes: WNL Cardiovascular: Yes: Regular Rate and Rhythm, S1, S2 Respiratory: Yes: Rhonchi, Wheezes (bilateral wheezes and rhonchi) Gastrointestinal: Yes: Normal Bowel Sounds, Soft Extremities: Yes: WNL Edema: No Labs: CBC, BMP 09/08/18 06:30 09/08/18 06:30 INR, PTT INR 3.96 (0.83-1.09) H 09/08/18 06:30 Problem List - Problems (1) Pneumonia Code(s): J18.9 - PNEUMONIA, UNSPECIFIED ORGANISM (2) Acute on chronic diastolic CHF (congestive heart failure) Code(s): I50.33 - ACUTE ON CHRONIC DIASTOLIC (CONGESTIVE) HEART FAILURE (3) Hypothyroid Code(s): E03.9 - HYPOTHYROIDISM, UNSPECIFIED (4) Pneumonia Code(s): J18.9 - PNEUMONIA, UNSPECIFIED ORGANISM (5) Anemia Code(s): D64.9 - ANEMIA, UNSPECIFIED Qualifiers: Other causes of anemia: acute posthemorrhagic Qualified Code(s): D62 - Acute posthemorrhagic anemia (6) Atrial fibrillation Code(s): I48.91 - UNSPECIFIED ATRIAL FIBRILLATION Qualifiers: Atrial fibrillation type: persistent Qualified Code(s): I48.1 - Persistent atrial fibrillation (7) Biventricular automatic implantable cardioverter defibrillator in situ Code(s): Z95.810 - PRESENCE OF AUTOMATIC (IMPLANTABLE) CARDIAC DEFIBRILLATOR (8) Failure to thrive Code(s): [id number] - Assessment/Plan IMP PNEUMONIA ASHD NON-ISCHEMIC CARDIOMYOPATHY S/P ICD ACUTE ON CHRONIC CHF AFIB HTN + TROPONIN PLAN ABX PER ID INHALED BRONCHODILATORS O2 CONTINUE MEDROL LASIX DAILY WT STRICT I+OS CHEST PT ROBITUSSIN DM ADD MUCOMYST INCENTIVE SPIROMETER DR RODRIGUEZ Problem List - Problems (1) Pneumonia Code(s): J18.9 - PNEUMONIA, UNSPECIFIED ORGANISM (2) Acute on chronic diastolic CHF (congestive heart failure) Code(s): I50.33 - ACUTE ON CHRONIC DIASTOLIC (CONGESTIVE) HEART FAILURE (3) Hypothyroid Code(s): E03.9 - HYPOTHYROIDISM, UNSPECIFIED (4) Pneumonia Code(s): J18.9 - PNEUMONIA, UNSPECIFIED ORGANISM (5) Anemia Code(s): D64.9 - ANEMIA, UNSPECIFIED Qualifiers: Other causes of anemia: acute posthemorrhagic Qualified Code(s): D62 - Acute posthemorrhagic anemia (6) Atrial fibrillation Code(s): I48.91 - UNSPECIFIED ATRIAL FIBRILLATION Qualifiers: Atrial fibrillation type: persistent Qualified Code(s): I48.1 - Persistent atrial fibrillation (7) Biventricular automatic implantable cardioverter defibrillator in situ Code(s): Z95.810 - PRESENCE OF AUTOMATIC (IMPLANTABLE) CARDIAC DEFIBRILLATOR (8) Failure to thrive Code(s): [id number] -
[2018-09-08] MEDS ORDERED: ACETYLCYSTEINE 20% 200MG/ML 30 ML VIAL *FOR ORAL / INH USE ONLY NEB SCH (12:00)
[2018-09-08] MEDS: ACETYLCYSTEINE 20% 200MG/ML 4 ML VIAL *FOR ORAL / INH USE ONLY NEB SCH ×2 (16:30→21:15)
[2018-09-08] MEDS: ALBUTEROL SO4 0.042% IH SOL 1.25 MG/3 ML VIAL.NEB NEB PRN ×2 (16:30→21:15)
[2018-09-09] MEDS ORDERED: PIPERACILLIN/TAZOBACTAM 3.375 GM VIAL IVPB ONE ×3 (00:58→17:08)
[2018-09-09] MEDS ORDERED: DEXTROSE 5%-WATER - 50 ML IVPB ONE ×3 (00:59→17:08)
[2018-09-09] MEDS: PIPERACILLIN/TAZOB 3.375 GM 3.375 GM in DEXTROSE 5%-WATER - 50 ML IVPB SCH ×3 (01:14→17:17)
[2018-09-09] MEDS: LEVOTHYROXINE NA 25 MCG TABLET (FP) PO SCH (06:01)
[2018-09-09 06:45] LABS: BASO % 0.1 % (0-2.0); HEMATOCRIT 42.6 % (32.4-45.2); HEMOGLOBIN 13.9 GM/dL (10.7-15.3); LYMPH % 4.3 % (8-40); MCH 30.7 pg (25.7-33.7); MCHC 32.6 g/dl (32.0-36.0); MEAN CELL VOLUME 94.4 fl (80-96); MEAN PLT VOLUME 7.8 fl (7.5-11.1); MONO % 4.5 % (3.8-10.2); NEUT % 91.1 % (42.8-82.8); PLATELET COUNT 317 K/MM3 (134-434); RBC 4.51 M/mm3 (3.60-5.2); RDW 15.3 % (11.6-15.6); WHITE BLOOD COUNT 14.8 K/mm3 (4.0-10.0)
[2018-09-09 06:58] LABS: PROTHROMBIN TIME (PATIENT) 52.9 SEC (9.7-13.0)
[2018-09-09 07:02] LABS: ANION GAP 5 MMOL/L (8-16); BLOOD UREA NITROGEN 36 mg/dL (7-18); CALCIUM 8.9 mg/dL (8.5-10.1); CHLORIDE 96 mmol/L (98-107); CO2 36 mmol/L (21-32); CREATININE 1.1 mg/dL (0.55-1.3); GLUCOSE,RANDOM 162 mg/dL (74-106); MAGNESIUM 2.2 mg/dL (1.8-2.4); POTASSIUM 4.5 mmol/L (3.5-5.1); SODIUM 136 mmol/L (136-145)
[2018-09-09] MEDS: ACETYLCYSTEINE 20% 200MG/ML 4 ML VIAL *FOR ORAL / INH USE ONLY NEB SCH ×4 (08:00→20:50)
[2018-09-09 08:22] LABS: INR 4.42 (0.83-1.09)
[2018-09-09] MEDS: guaiFENesin 600 MG TABLET.ER (FP) PO SCH ×2 (10:00→21:46)
[2018-09-09] MEDS: CARVEDILOL 25 MG TABLET (FP) PO SCH ×2 (10:01→21:47)
[2018-09-09] MEDS: DIGOXIN 0.125 MG TABLET (FP) PO SCH (10:01)
[2018-09-09] MEDS: LORATADINE 10 MG TABLET PO SCH (10:01)
[2018-09-09] MEDS: GABAPENTIN 300 MG CAPSULE (FP) PO SCH (10:01)
[2018-09-09] MEDS: CHOLECALCIFEROL (VITAMIN D3) 1,000 UNIT TABLET (FP) PO SCH (10:01)
[2018-09-09] MEDS: LISINOPRIL 10 MG TABLET (FP) PO SCH ×2 (10:01→21:46)
[2018-09-09] MEDS: FUROSEMIDE 20 MG TABLET (FP) PO SCH (10:01)
[2018-09-09] MEDS: CALCIUM 500MG/VIT-D 200 UNITS COMBO TABLET (FP) PO SCH ×2 (10:02→21:46)
[2018-09-09] MEDS: ASCORBIC ACID 500 MG TABLET (FP) PO SCH (10:02)
[2018-09-09] MEDS: PANTOPRAZOLE 20 MG TABLET (FP) PO SCH (10:02)
[2018-09-09] MEDS: methylPREDNISolone NA SUCC 40 MG/1 ML VIAL IVPUSH SCH ×2 (10:02→21:46)
--- NOTE | 2018-09-09 11:18 | PN ---
Progress Note (short form) - Note Progress Note: s: no cp palps dizzy; sob improving o: Vital Signs Period Temp Pulse Resp BP Sys/Alvares Pulse Ox Last 24 Hr 97.2 F-98.1 F 50-63 18-20 126-177/64-89 95 Constitutional: Yes: Well Nourished, No Distress, Calm Cardiovascular: Yes: Regular Rate and Rhythm, Murmur (soft HSM apex), S1, S2. No: JVD, Gallop, S3, S4 Respiratory: Yes: Regular, Rales (bases), scattered rhonchi Extremities: No: Cold Edema: No Neurological: Yes: Alert, Oriented Psychiatric: No: Agitated no jaundice diaphoresis Current Medications Generic Name Dose Route Start Last Admin Trade Name Freq PRN Reason Stop Dose Admin Acetylcysteine 200 mg 09/08/18 12:01 09/08/18 21:15 Mucomyst 20 Oral / Inh Use Only* NEB 200 mg RQID ANANT Administration Albuterol Sulfate 1 amp 09/06/18 23:18 09/08/18 21:15 Ventolin 0.042trength) - NEB 1 amp Q4H PRN Administration SHORT OF BREATH/WHEEZING Ascorbic Acid 500 mg 09/07/18 10:00 09/09/18 10:02 Vitamin C - PO 500 mg DAILY ANANT Administration Calcium Carbonate/Cholecalciferol 1 tab 09/07/18 10:00 09/09/18 10:02 Os-Wil 500+D - PO 1 tab BID ANANT Administration Carvedilol 12.5 mg 09/09/18 11:16 Coreg - PO BID ANANT Cholecalciferol 1,000 unit 09/07/18 10:00 09/09/18 10:01 Vitamin D3 - PO 1,000 unit DAILY ANANT Administration Digoxin 0.125 mg 09/07/18 10:00 09/09/18 10:01 Lanoxin - PO 0.125 mg Q2D@1000 ANANT Administration Furosemide 20 mg 09/06/18 14:09 09/09/18 10:01 Lasix - PO 20 mg DAILY ANANT Administration Gabapentin 300 mg 09/07/18 10:00 09/09/18 10:01 Neurontin - PO 300 mg DAILY ANANT Administration Guaifenesin 1,200 mg 09/07/18 22:00 09/09/18 10:00 Mucinex - PO 1,200 mg BID ANANT Administration Piperacillin Sod/Tazobactam 50 mls @ 100 mls/hr 09/07/18 02:00 09/09/18 10:03 Sod 3.375 gm/ Dextrose IVPB 100 mls/hr Q8H-IV ANANT Administration Protocol Levothyroxine Sodium 25 mcg 09/07/18 07:00 09/09/18 06:01 Synthroid - PO 25 mcg DAILY@0700 ANANT Administration Lisinopril 10 mg 09/06/18 14:10 09/09/18 10:01 Prinivil PO 10 mg BID ANANT Administration Loratadine 10 mg 09/07/18 10:00 09/09/18 10:01 Claritin - PO 10 mg DAILY ANANT Administration Methylprednisolone Sodium Succinate 40 mg 09/07/18 22:00 09/09/18 10:02 Solu-Medrol - IVPUSH 40 mg BID ANANT Administration Pantoprazole Sodium 20 mg 09/07/18 10:00 09/09/18 10:02 Protonix - PO 20 mg DAILY ANANT Administration Senna 1 tab 09/06/18 23:18 Senna - PO DAILY PRN CONSTIPATION Silver Sulfadiazine 1 applic 09/07/18 10:00 09/08/18 09:23 Silvadene - TP Not Given DAILY ANANT CBC, BMP 09/09/18 06:00 09/09/18 06:00 ct chest: pna, no chf ecg: afib, vpaced echo 08/2014: mild lve, lvef 35%, global hk, nl rv, mild-mod mr, mod tr, mod phtn, increased rap, nl lap a/p: 88 f hx syst chf (nicm, 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 sob, pna, acute syst CHF: -cont abx per primary -no signs fluid overload/chf - on PO lasix -no signs acs -nebs, steroids per primary chronic syst chf: -cont lasix 20 po qd -s/p biv icd, nl fcn on ecg/tele htn: -labile bp here, likely related to steroids -has longstanding history of orthostasis with prior syncope -incr lisinopril 2.5 bid to 5 bid--NOTE: should go back down to 2.5 bid when prednisone is stopped, as suspect she will develope symptomatic orthostatic hypotension again if remains on higher dose off steroids--please include this in transfer instructions when pt goes to SNF -cont carvedilol, will decrease dose to 12.5 bid as she has bradycardia and doses have been held several times now. afib: -rate controlled with bb, dig, continue -cont coumadin per INR elevated trops: -borderline trop elevation with flat trend and nl ck similar to prior baseline values, not c/w acs
[2018-09-09 11:20] LABS: ANISOCYTOSIS 0; PLATELET ESTIMATE NORMAL
[2018-09-09 11:30] LABS: MACROCYTOSIS 1+
--- NOTE | 2018-09-09 12:06 | PN ---
Progress Note, Physician History of Present Illness: PULMONARY ALERT,OOB-CHAIR,LESS DYSPNEIC. - Current Medication List Current Medications: Active Medications Acetylcysteine (Mucomyst 20 Oral / Inh Use Only*) 200 mg NEB RQID [facility] Last Admin: 09/08/18 21:15 Dose: 200 mg Albuterol Sulfate (Ventolin 0.042trength) -) 1 amp NEB Q4H PRN PRN Reason: SHORT OF BREATH/WHEEZING Last Admin: 09/08/18 21:15 Dose: 1 amp Ascorbic Acid (Vitamin C -) 500 mg PO DAILY [facility] Last Admin: 09/09/18 10:02 Dose: 500 mg Calcium Carbonate/Cholecalciferol (Os-Wil 500+D -) 1 tab PO BID [facility] Last Admin: 09/09/18 10:02 Dose: 1 tab Carvedilol (Coreg -) 12.5 mg PO BID [facility] Cholecalciferol (Vitamin D3 -) 1,000 unit PO DAILY [facility] Last Admin: 09/09/18 10:01 Dose: 1,000 unit Digoxin (Lanoxin -) 0.125 mg PO Q2D@1000 [facility] Last Admin: 09/09/18 10:01 Dose: 0.125 mg Furosemide (Lasix -) 20 mg PO DAILY [facility] Last Admin: 09/09/18 10:01 Dose: 20 mg Gabapentin (Neurontin -) 300 mg PO DAILY [facility] Last Admin: 09/09/18 10:01 Dose: 300 mg Guaifenesin (Mucinex -) 1,200 mg PO BID [facility] Last Admin: 09/09/18 10:00 Dose: 1,200 mg Piperacillin Sod/Tazobactam (Sod 3.375 gm/ Dextrose) 50 mls @ 100 mls/hr IVPB Q8H-IV [facility]; Protocol Last Admin: 09/09/18 10:03 Dose: 100 mls/hr Levothyroxine Sodium (Synthroid -) 25 mcg PO DAILY@0700 [facility] Last Admin: 09/09/18 06:01 Dose: 25 mcg Lisinopril (Prinivil) 10 mg PO BID [facility] Last Admin: 09/09/18 10:01 Dose: 10 mg Loratadine (Claritin -) 10 mg PO DAILY [facility] Last Admin: 09/09/18 10:01 Dose: 10 mg Methylprednisolone Sodium Succinate (Solu-Medrol -) 40 mg IVPUSH BID [facility] Last Admin: 04/07/19 10:02 Dose: 40 mg Pantoprazole Sodium (Protonix -) 20 mg PO DAILY [facility] Last Admin: 09/09/18 10:02 Dose: 20 mg Senna (Senna -) 1 tab PO DAILY PRN PRN Reason: CONSTIPATION Silver Sulfadiazine (Silvadene -) 1 applic TP DAILY [facility] Last Admin: 09/08/18 09:23 Dose: Not Given - Objective Vital Signs: Vital Signs Temperature 98.3 F 09/09/18 10:00 Pulse Rate 56 L 09/09/18 10:01 Respiratory Rate 18 09/09/18 10:00 Blood Pressure 149/72 09/09/18 10:00 O2 Sat by Pulse Oximetry (%) 95 09/08/18 22:00 Constitutional: Yes: Calm, Thin Eyes: Yes: WNL HENT: Yes: WNL Neck: Yes: WNL Cardiovascular: Yes: Regular Rate and Rhythm, S1, S2 Respiratory: Yes: Wheezes (LESS WHEEZES KATY,FEW SCATTERED KATY CRACKLES) Gastrointestinal: Yes: Normal Bowel Sounds, Soft Extremities: Yes: WNL Edema: Yes Labs: CBC, BMP 09/09/18 06:00 09/09/18 06:00 INR, PTT INR 4.42 (0.83-1.09) H* 09/09/18 06:00 Problem List - Problems (1) Pneumonia Code(s): J18.9 - PNEUMONIA, UNSPECIFIED ORGANISM (2) Acute on chronic diastolic CHF (congestive heart failure) Code(s): I50.33 - ACUTE ON CHRONIC DIASTOLIC (CONGESTIVE) HEART FAILURE (3) Hypothyroid Code(s): E03.9 - HYPOTHYROIDISM, UNSPECIFIED (4) Pneumonia Code(s): J18.9 - PNEUMONIA, UNSPECIFIED ORGANISM (5) Anemia Code(s): D64.9 - ANEMIA, UNSPECIFIED Qualifiers: Other causes of anemia: acute posthemorrhagic Qualified Code(s): D62 - Acute posthemorrhagic anemia (6) Atrial fibrillation Code(s): I48.91 - UNSPECIFIED ATRIAL FIBRILLATION Qualifiers: Atrial fibrillation type: persistent Qualified Code(s): I48.1 - Persistent atrial fibrillation (7) Biventricular automatic implantable cardioverter defibrillator in situ Code(s): Z95.810 - PRESENCE OF AUTOMATIC (IMPLANTABLE) CARDIAC DEFIBRILLATOR (8) Failure to thrive Code(s): [id number] - Assessment/Plan IMP PNEUMONIA ASHD NON-ISCHEMIC CARDIOMYOPATHY S/P ICD ACUTE ON CHRONIC CHF AFIB HTN + TROPONIN PLAN ABX PER ID INHALED BRONCHODILATORS O2 CONTINUE MEDROL SAME DOSE LASIX DAILY WT STRICT I+OS CHEST PT ROBITUSSIN DM MUCOMYST INCENTIVE SPIROMETER DR RODRIGUEZ Problem List - Problems (1) Pneumonia Code(s): J18.9 - PNEUMONIA, UNSPECIFIED ORGANISM (2) Acute on chronic diastolic CHF (congestive heart failure) Code(s): I50.33 - ACUTE ON CHRONIC DIASTOLIC (CONGESTIVE) HEART FAILURE (3) Hypothyroid Code(s): E03.9 - HYPOTHYROIDISM, UNSPECIFIED (4) Pneumonia Code(s): J18.9 - PNEUMONIA, UNSPECIFIED ORGANISM (5) Anemia Code(s): D64.9 - ANEMIA, UNSPECIFIED Qualifiers: Other causes of anemia: acute posthemorrhagic Qualified Code(s): D62 - Acute posthemorrhagic anemia (6) Atrial fibrillation Code(s): I48.91 - UNSPECIFIED ATRIAL FIBRILLATION Qualifiers: Atrial fibrillation type: persistent Qualified Code(s): I48.1 - Persistent atrial fibrillation (7) Biventricular automatic implantable cardioverter defibrillator in situ Code(s): Z95.810 - PRESENCE OF AUTOMATIC (IMPLANTABLE) CARDIAC DEFIBRILLATOR (8) Failure to thrive Code(s): [id number] -
[2018-09-09] MEDS: SILVER SULFADIAZINE 1% TOP CREAM 400 GM JAR TP SCH (13:59)
--- NOTE | 2018-09-09 15:35 | PN ---
Progress Note, Physician Chief Complaint: Ms Yuen says she is breathing much better today. Denies cp and n/v. Case d/w son who states patient is looking much better. - Current Medication List Current Medications: Active Medications Acetylcysteine (Mucomyst 20 Oral / Inh Use Only*) 200 mg NEB RQID [facility] Last Admin: 09/09/18 12:00 Dose: 200 mg Albuterol Sulfate (Ventolin 0.042trength) -) 1 amp NEB Q4H PRN PRN Reason: SHORT OF BREATH/WHEEZING Last Admin: 09/08/18 21:15 Dose: 1 amp Ascorbic Acid (Vitamin C -) 500 mg PO DAILY [facility] Last Admin: 09/09/18 10:02 Dose: 500 mg Calcium Carbonate/Cholecalciferol (Os-Wil 500+D -) 1 tab PO BID [facility] Last Admin: 09/09/18 10:02 Dose: 1 tab Carvedilol (Coreg -) 12.5 mg PO BID [facility] Cholecalciferol (Vitamin D3 -) 1,000 unit PO DAILY [facility] Last Admin: 09/09/18 10:01 Dose: 1,000 unit Digoxin (Lanoxin -) 0.125 mg PO Q2D@1000 [facility] Last Admin: 09/09/18 10:01 Dose: 0.125 mg Furosemide (Lasix -) 20 mg PO DAILY [facility] Last Admin: 09/09/18 10:01 Dose: 20 mg Gabapentin (Neurontin -) 300 mg PO DAILY [facility] Last Admin: 09/09/18 10:01 Dose: 300 mg Guaifenesin (Mucinex -) 1,200 mg PO BID [facility] Last Admin: 09/09/18 10:00 Dose: 1,200 mg Piperacillin Sod/Tazobactam (Sod 3.375 gm/ Dextrose) 50 mls @ 100 mls/hr IVPB Q8H-IV [facility]; Protocol Last Admin: 09/09/18 10:03 Dose: 100 mls/hr Levothyroxine Sodium (Synthroid -) 25 mcg PO DAILY@0700 [facility] Last Admin: 09/09/18 06:01 Dose: 25 mcg Lisinopril (Prinivil) 10 mg PO BID [facility] Last Admin: 09/09/18 10:01 Dose: 10 mg Loratadine (Claritin -) 10 mg PO DAILY [facility] Last Admin: 09/09/18 10:01 Dose: 10 mg Methylprednisolone Sodium Succinate (Solu-Medrol -) 40 mg IVPUSH BID [facility] Last Admin: 09/09/18 10:02 Dose: 40 mg Pantoprazole Sodium (Protonix -) 20 mg PO DAILY [facility] Last Admin: 09/09/18 10:02 Dose: 20 mg Senna (Senna -) 1 tab PO DAILY PRN PRN Reason: CONSTIPATION Silver Sulfadiazine (Silvadene -) 1 applic TP DAILY [facility] Last Admin: 09/09/18 13:59 Dose: 1 applic - Objective Vital Signs: Vital Signs Temperature 36.7 C 09/09/18 15:22 Pulse Rate 54 L 09/09/18 15:22 Respiratory Rate 18 09/09/18 15:22 Blood Pressure 161/78 09/09/18 15:22 O2 Sat by Pulse Oximetry (%) 98 09/09/18 10:00 Constitutional: Yes: Well Nourished, No Distress, Calm Cardiovascular: Yes: Regular Rate and Rhythm. No: Gallop, Murmur, Rub Respiratory: Yes: Regular, Rhonchi (much improved), Wheezes. No: CTA Bilaterally, On Nasal O2, Rales Gastrointestinal: Yes: Normal Bowel Sounds, Soft. No: Distention, Tenderness Extremities: Yes: WNL Edema: No Labs: CBC, BMP 09/09/18 06:00 09/09/18 06:00 INR, PTT INR 4.42 (0.83-1.09) H* 09/09/18 06:00 Problem List - Problems (1) Pneumonia Code(s): J18.9 - PNEUMONIA, UNSPECIFIED ORGANISM (2) Acute on chronic diastolic CHF (congestive heart failure) Code(s): I50.33 - ACUTE ON CHRONIC DIASTOLIC (CONGESTIVE) HEART FAILURE (3) Atrial fibrillation Code(s): I48.91 - UNSPECIFIED ATRIAL FIBRILLATION Qualifiers: Atrial fibrillation type: persistent Qualified Code(s): I48.1 - Persistent atrial fibrillation (4) Hypertension Code(s): I10 - ESSENTIAL (PRIMARY) HYPERTENSION Qualifiers: Hypertension type: essential hypertension Qualified Code(s): I10 - Essential (primary) hypertension (5) Hypothyroid Code(s): E03.9 - HYPOTHYROIDISM, UNSPECIFIED Assessment/Plan (1) Pneumonia Assessment/Plan: -continue zosyn -lung exam much improved today -continue solumedrol at current dose -continue mucinex and bronchodilators -mucomyst added by Dr Snow -case d/w Dr Snow Code(s): J18.9 - PNEUMONIA, UNSPECIFIED ORGANISM (2) Acute on chronic diastolic CHF (congestive heart failure) Assessment/Plan: -continue lasix 20mg daily and digoxin Code(s): I50.33 - ACUTE ON CHRONIC DIASTOLIC (CONGESTIVE) HEART FAILURE (3) Atrial fibrillation Assessment/Plan: -continue coreg and digoxin -INR supratherapeutic -continue to hold coumadin 5mg -recheck in am Code(s): I48.91 - UNSPECIFIED ATRIAL FIBRILLATION Qualifiers: Atrial fibrillation type: persistent Qualified Code(s): I48.1 - Persistent atrial fibrillation (4) Hypertension Assessment/Plan: -increased lisinopril to 10mg bid while on high dose steroids -continue coreg and lasix -expect to decrease lisinopril as steroids are decreased -normally on lisinopril 2.5mg bid at home Code(s): I10 - ESSENTIAL (PRIMARY) HYPERTENSION Qualifiers: Hypertension type: essential hypertension Qualified Code(s): I10 - Essential (primary) hypertension (5) Hypothyroid Assessment/Plan: -continue synthroid Code(s): E03.9 - HYPOTHYROIDISM, UNSPECIFIED
[2018-09-09] MEDS: ALBUTEROL SO4 0.042% IH SOL 1.25 MG/3 ML VIAL.NEB NEB PRN (20:50)
[2018-09-10] MEDS ORDERED: DEXTROSE 5%-WATER - 50 ML IVPB ONE ×3 (01:12→17:38)
[2018-09-10] MEDS ORDERED: PIPERACILLIN/TAZOBACTAM 3.375 GM VIAL IVPB ONE ×3 (01:12→17:38)
[2018-09-10] MEDS: PIPERACILLIN/TAZOB 3.375 GM 3.375 GM in DEXTROSE 5%-WATER - 50 ML IVPB SCH ×3 (03:10→18:12)
[2018-09-10] MEDS: LEVOTHYROXINE NA 25 MCG TABLET (FP) PO SCH (06:12)
[2018-09-10 07:42] LABS: BASO % 0.2 % (0-2.0); HEMATOCRIT 42.1 % (32.4-45.2); HEMOGLOBIN 13.6 GM/dL (10.7-15.3); MCH 30.4 pg (25.7-33.7); MCHC 32.3 g/dl (32.0-36.0); MEAN CELL VOLUME 94.2 fl (80-96); MEAN PLT VOLUME 7.8 fl (7.5-11.1); MONO % 4.4 % (3.8-10.2); NEUT % 91.4 % (42.8-82.8); PLATELET COUNT 314 K/MM3 (134-434); RBC 4.47 M/mm3 (3.60-5.2); RDW 15.5 % (11.6-15.6); WHITE BLOOD COUNT 14.8 K/mm3 (4.0-10.0)
[2018-09-10] MEDS: ACETYLCYSTEINE 20% 200MG/ML 4 ML VIAL *FOR ORAL / INH USE ONLY NEB SCH ×4 (08:00→20:20)
[2018-09-10 08:09] LABS: ANION GAP 6 MMOL/L (8-16); BLOOD UREA NITROGEN 37 mg/dL (7-18); CALCIUM 8.9 mg/dL (8.5-10.1); CHLORIDE 98 mmol/L (98-107); CO2 35 mmol/L (21-32); GLUCOSE,RANDOM 172 mg/dL (74-106); MAGNESIUM 2.1 mg/dL (1.8-2.4); PHOSPHOROUS 2.7 mg/dL (2.5-4.9); POTASSIUM 3.6 mmol/L (3.5-5.1); SODIUM 138 mmol/L (136-145)
[2018-09-10 08:20] LABS: INR 2.52 (0.83-1.09)
[2018-09-10 10:49] LABS: ANISOCYTOSIS 0; MACROCYTOSIS 1+; PLATELET ESTIMATE NORMAL
--- NOTE | 2018-09-10 11:29 | PN ---
Progress Note (short form) - Note Progress Note: feels weak now expectorating Vital Signs Period Temp Pulse Resp BP Sys/Alvares Pulse Ox Last 24 Hr 97.2 F-98.2 F 50-57 18-18 146-161/69-78 95 cor-rrr lungs scattered rhonchi abd soft,nt ext no edema dressing intact CBC, BMP 09/10/18 07:05 09/10/18 07:05 Microbiology 09/08/18 09:40 Sputum - Expectorated Gram Stain - Final 09/08/18 09:40 Sputum - Expectorated Sputum Culture - Preliminary Yeast Like Organism 09/06/18 11:24 Throat Throat Culture - Final NO BETA HEMOLYTIC STREPTOCOCCI ISOLATED 08/31/18 13:15 Blood - Peripheral Venous Blood Culture - Final NO GROWTH AFTER 5 DAYS INCUBATION 08/31/18 13:15 Blood - Peripheral Venous Blood Culture - Final NO GROWTH AFTER 5 DAYS INCUBATION 09/02/18 11:00 Nares - Right Nares MRSA Screen - Final NO MRSA ISOLATED 09/02/18 11:00 Nares - Left Nares MRSA Screen - Final NO MRSA ISOLATED 08/31/18 15:51 Urine - Urine - Catheterized Urine Culture - Final NO GROWTH OBTAINED 09/01/18 13:00 Urine For Antigen Detection Legionella Antigen - Final 09/01/18 13:00 Urine For Antigen Detection Streptococcus pneumoniae Antigen (M - Final Current Medications Acetylcysteine (Mucomyst 20 Oral / Inh Use Only*) 200 mg NEB RQID [facility] Last Admin: 09/10/18 08:00 Dose: 200 mg Albuterol Sulfate (Ventolin 0.042trength) -) 1 amp NEB Q4H PRN PRN Reason: SHORT OF BREATH/WHEEZING Last Admin: 09/09/18 20:50 Dose: 1 amp Ascorbic Acid (Vitamin C -) 500 mg PO DAILY [facility] Last Admin: 09/09/18 10:02 Dose: 500 mg Calcium Carbonate/Cholecalciferol (Os-Wil 500+D -) 1 tab PO BID [facility] Last Admin: 09/09/18 21:46 Dose: 1 tab Carvedilol (Coreg -) 12.5 mg PO BID [facility] Last Admin: 09/09/18 21:47 Dose: 12.5 mg Cholecalciferol (Vitamin D3 -) 1,000 unit PO DAILY [facility] Last Admin: 09/09/18 10:01 Dose: 1,000 unit Digoxin (Lanoxin -) 0.125 mg PO Q2D@1000 [facility] Last Admin: 09/09/18 10:01 Dose: 0.125 mg Furosemide (Lasix -) 20 mg PO DAILY [facility] Last Admin: 09/09/18 10:01 Dose: 20 mg Gabapentin (Neurontin -) 300 mg PO DAILY [facility] Last Admin: 09/09/18 10:01 Dose: 300 mg Guaifenesin (Mucinex -) 1,200 mg PO BID [facility] Last Admin: 09/09/18 21:46 Dose: 1,200 mg Piperacillin Sod/Tazobactam (Sod 3.375 gm/ Dextrose) 50 mls @ 100 mls/hr IVPB Q8H-IV [facility]; Protocol Last Admin: 09/10/18 03:10 Dose: 100 mls/hr Levothyroxine Sodium (Synthroid -) 25 mcg PO DAILY@0700 [facility] Last Admin: 09/10/18 06:12 Dose: 25 mcg Lisinopril (Prinivil) 10 mg PO BID [facility] Last Admin: 09/09/18 21:46 Dose: 10 mg Loratadine (Claritin -) 10 mg PO DAILY [facility] Last Admin: 09/09/18 10:01 Dose: 10 mg Methylprednisolone Sodium Succinate (Solu-Medrol -) 40 mg IVPUSH BID [facility] Last Admin: 09/09/18 21:46 Dose: 40 mg Pantoprazole Sodium (Protonix -) 20 mg PO DAILY [facility] Last Admin: 09/09/18 10:02 Dose: 20 mg Senna (Senna -) 1 tab PO DAILY PRN PRN Reason: CONSTIPATION Silver Sulfadiazine (Silvadene -) 1 applic TP DAILY [facility] Last Admin: 09/09/18 13:59 Dose: 1 applic a/p HCAP- day #10 zosyn- d/c after today has completed 5 days zithromax urine legionella antigen negative nares for MRSA negative continue nebs and steroids added mucolytics clinically improved s/p wiseman to her legs- STSG history of chf- on lasix on steroids as well add probiotics Problem List - Problems (1) Pneumonia Code(s): J18.9 - PNEUMONIA, UNSPECIFIED ORGANISM
[2018-09-10] MEDS: CARVEDILOL 25 MG TABLET (FP) PO SCH ×2 (11:59→22:48)
[2018-09-10] MEDS: CHOLECALCIFEROL (VITAMIN D3) 1,000 UNIT TABLET (FP) PO SCH (12:00)
[2018-09-10] MEDS: FUROSEMIDE 20 MG TABLET (FP) PO SCH (12:00)
[2018-09-10] MEDS: LORATADINE 10 MG TABLET PO SCH (12:00)
[2018-09-10] MEDS: ASCORBIC ACID 500 MG TABLET (FP) PO SCH (12:00)
[2018-09-10] MEDS: LISINOPRIL 10 MG TABLET (FP) PO SCH ×2 (12:00→22:48)
[2018-09-10] MEDS: CALCIUM 500MG/VIT-D 200 UNITS COMBO TABLET (FP) PO SCH ×2 (12:00→22:48)
[2018-09-10] MEDS: guaiFENesin 600 MG TABLET.ER (FP) PO SCH ×2 (12:00→22:48)
[2018-09-10] MEDS: ALBUTEROL SO4 0.042% IH SOL 1.25 MG/3 ML VIAL.NEB NEB PRN ×3 (12:00→20:20)
[2018-09-10] MEDS: GABAPENTIN 300 MG CAPSULE (FP) PO SCH (12:00)
[2018-09-10] MEDS: PANTOPRAZOLE 20 MG TABLET (FP) PO SCH (12:00)
[2018-09-10] MEDS: methylPREDNISolone NA SUCC 40 MG/1 ML VIAL IVPUSH SCH ×2 (12:01→22:48)
--- NOTE | 2018-09-10 12:13 | PN ---
Progress Note (short form) - Note Progress Note: PULMONARY Breathing better but still with productive cough. No fevers. Vital Signs Period Temp Pulse Resp BP Sys/Alvares Pulse Ox Last 24 Hr 97.2 F-98.2 F 50-57 18-18 146-161/69-78 95 Gen: NAD at rest Heart: RRR Lung: scattered rhonchi, wheezes Abd: soft, nontender Ext: no edema CBC, BMP 09/10/18 07:05 09/10/18 07:05 INR, PTT INR 2.52 (0.83-1.09) H 09/10/18 07:05 Active Medications Acetylcysteine (Mucomyst 20 Oral / Inh Use Only*) 200 mg NEB RQID [facility] Last Admin: 09/10/18 08:00 Dose: 200 mg Albuterol Sulfate (Ventolin 0.042trength) -) 1 amp NEB Q4H PRN PRN Reason: SHORT OF BREATH/WHEEZING Last Admin: 09/09/18 20:50 Dose: 1 amp Ascorbic Acid (Vitamin C -) 500 mg PO DAILY [facility] Last Admin: 09/10/18 12:00 Dose: 500 mg Calcium Carbonate/Cholecalciferol (Os-Wil 500+D -) 1 tab PO BID [facility] Last Admin: 09/10/18 12:00 Dose: 1 tab Carvedilol (Coreg -) 12.5 mg PO BID [facility] Last Admin: 09/10/18 11:59 Dose: 12.5 mg Cholecalciferol (Vitamin D3 -) 1,000 unit PO DAILY [facility] Last Admin: 09/10/18 12:00 Dose: 1,000 unit Digoxin (Lanoxin -) 0.125 mg PO Q2D@1000 [facility] Last Admin: 09/09/18 10:01 Dose: 0.125 mg Furosemide (Lasix -) 20 mg PO DAILY [facility] Last Admin: 09/10/18 12:00 Dose: 20 mg Gabapentin (Neurontin -) 300 mg PO DAILY [facility] Last Admin: 09/10/18 12:00 Dose: 300 mg Guaifenesin (Mucinex -) 1,200 mg PO BID [facility] Last Admin: 09/10/18 12:00 Dose: 1,200 mg Piperacillin Sod/Tazobactam (Sod 3.375 gm/ Dextrose) 50 mls @ 100 mls/hr IVPB Q8H-IV [facility]; Protocol Last Admin: 09/10/18 12:01 Dose: 100 mls/hr Lactobacillus Acidophilus (Bacid -) 1 tab PO DAILY [facility] Levothyroxine Sodium (Synthroid -) 25 mcg PO DAILY@0700 [facility] Last Admin: 09/10/18 06:12 Dose: 25 mcg Lisinopril (Prinivil) 10 mg PO BID [facility] Last Admin: 09/10/18 12:00 Dose: 10 mg Loratadine (Claritin -) 10 mg PO DAILY [facility] Last Admin: 09/10/18 12:00 Dose: 10 mg Methylprednisolone Sodium Succinate (Solu-Medrol -) 40 mg IVPUSH BID [facility] Last Admin: 09/10/18 12:01 Dose: 40 mg Pantoprazole Sodium (Protonix -) 20 mg PO DAILY [facility] Last Admin: 09/10/18 12:00 Dose: 20 mg Senna (Senna -) 1 tab PO DAILY PRN PRN Reason: CONSTIPATION Silver Sulfadiazine (Silvadene -) 1 applic TP DAILY [facility] Last Admin: 09/09/18 13:59 Dose: 1 applic A/P Pneumonia CAD NICM Atrial Fibrillation +Troponins likely Demand Ischemia HTN - continue antibiotics - continue medrol - inhaled bronchodilators - O2 to keep spO2 >90% - rate controlled - continue anticoagulation
[2018-09-10] MEDS: LACTOBACILLUS ACIDOPHILUS 1 TABLET PO SCH (13:06)
[2018-09-10] MEDS: SILVER SULFADIAZINE 1% TOP CREAM 400 GM JAR TP SCH (13:08)
--- NOTE | 2018-09-10 15:39 | PN ---
Progress Note, Physician Chief Complaint: Ms Yuen says she is feeling ok today, but is feeling restless. Says her breathing is doing well. No cp or n/v. - Current Medication List Current Medications: Active Medications Acetylcysteine (Mucomyst 20 Oral / Inh Use Only*) 200 mg NEB RQID [facility] Last Admin: 09/10/18 12:00 Dose: 200 mg Albuterol Sulfate (Ventolin 0.042trength) -) 1 amp NEB Q4H PRN PRN Reason: SHORT OF BREATH/WHEEZING Last Admin: 09/10/18 12:00 Dose: 1 amp Ascorbic Acid (Vitamin C -) 500 mg PO DAILY [facility] Last Admin: 09/10/18 12:00 Dose: 500 mg Calcium Carbonate/Cholecalciferol (Os-Wil 500+D -) 1 tab PO BID [facility] Last Admin: 09/10/18 12:00 Dose: 1 tab Carvedilol (Coreg -) 12.5 mg PO BID [facility] Last Admin: 09/10/18 11:59 Dose: 12.5 mg Cholecalciferol (Vitamin D3 -) 1,000 unit PO DAILY [facility] Last Admin: 09/10/18 12:00 Dose: 1,000 unit Digoxin (Lanoxin -) 0.125 mg PO Q2D@1000 [facility] Last Admin: 09/09/18 10:01 Dose: 0.125 mg Furosemide (Lasix -) 20 mg PO DAILY [facility] Last Admin: 09/10/18 12:00 Dose: 20 mg Gabapentin (Neurontin -) 300 mg PO DAILY [facility] Last Admin: 09/10/18 12:00 Dose: 300 mg Guaifenesin (Mucinex -) 1,200 mg PO BID [facility] Last Admin: 09/10/18 12:00 Dose: 1,200 mg Piperacillin Sod/Tazobactam (Sod 3.375 gm/ Dextrose) 50 mls @ 100 mls/hr IVPB Q8H-IV [facility]; Protocol Last Admin: 09/10/18 12:01 Dose: 100 mls/hr Lactobacillus Acidophilus (Bacid -) 1 tab PO DAILY [facility] Last Admin: 09/10/18 13:06 Dose: 1 tab Levothyroxine Sodium (Synthroid -) 25 mcg PO DAILY@0700 [facility] Last Admin: 09/10/18 06:12 Dose: 25 mcg Lisinopril (Prinivil) 10 mg PO BID [facility] Last Admin: 09/10/18 12:00 Dose: 10 mg Loratadine (Claritin -) 10 mg PO DAILY [facility] Last Admin: 09/10/18 12:00 Dose: 10 mg Methylprednisolone Sodium Succinate (Solu-Medrol -) 40 mg IVPUSH BID [facility] Last Admin: 09/10/18 12:01 Dose: 40 mg Pantoprazole Sodium (Protonix -) 20 mg PO DAILY [facility] Last Admin: 09/10/18 12:00 Dose: 20 mg Senna (Senna -) 1 tab PO DAILY PRN PRN Reason: CONSTIPATION Silver Sulfadiazine (Silvadene -) 1 applic TP DAILY [facility] Last Admin: 09/10/18 13:08 Dose: 1 applic - Objective Vital Signs: Vital Signs Temperature 36.8 C 09/10/18 15:05 Pulse Rate 53 L 09/10/18 15:05 Respiratory Rate 18 09/10/18 15:05 Blood Pressure 163/71 09/10/18 15:05 O2 Sat by Pulse Oximetry (%) 95 09/09/18 22:00 Constitutional: Yes: Well Nourished, No Distress, Calm Cardiovascular: Yes: Regular Rate and Rhythm. No: Gallop, Murmur, Rub Respiratory: Yes: Regular, Cough, Rhonchi (improving but still present), Wheezes (minimal). No: CTA Bilaterally, On Nasal O2, Rales Gastrointestinal: Yes: Normal Bowel Sounds, Soft. No: Distention, Tenderness Extremities: Yes: Other (wrapped) Edema: No Labs: CBC, BMP 09/10/18 07:05 09/10/18 07:05 INR, PTT INR 2.52 (0.83-1.09) H 09/10/18 07:05 Problem List - Problems (1) Pneumonia Code(s): J18.9 - PNEUMONIA, UNSPECIFIED ORGANISM (2) Acute on chronic diastolic CHF (congestive heart failure) Code(s): I50.33 - ACUTE ON CHRONIC DIASTOLIC (CONGESTIVE) HEART FAILURE (3) Atrial fibrillation Code(s): I48.91 - UNSPECIFIED ATRIAL FIBRILLATION Qualifiers: Atrial fibrillation type: persistent Qualified Code(s): I48.1 - Persistent atrial fibrillation (4) Hypertension Code(s): I10 - ESSENTIAL (PRIMARY) HYPERTENSION Qualifiers: Hypertension type: essential hypertension Qualified Code(s): I10 - Essential (primary) hypertension (5) Hypothyroid Code(s): E03.9 - HYPOTHYROIDISM, UNSPECIFIED Assessment/Plan (1) Pneumonia Assessment/Plan: -continue zosyn today -stop tomorrow per Dr Jones -case d/w Dr Jones -lung exam continues to improve -continue bid solumedrol, may be able to transition to prednisone 60mg tomorrow -continue mucinex and bronchodilators -continue mucomyst Code(s): J18.9 - PNEUMONIA, UNSPECIFIED ORGANISM (2) Acute on chronic diastolic CHF (congestive heart failure) Assessment/Plan: -continue lasix 20mg daily and digoxin Code(s): I50.33 - ACUTE ON CHRONIC DIASTOLIC (CONGESTIVE) HEART FAILURE (3) Atrial fibrillation Assessment/Plan: -continue coreg and digoxin -INR therapeutic today -restart coumadin but at a lower dose today -daily INR Code(s): I48.91 - UNSPECIFIED ATRIAL FIBRILLATION Qualifiers: Atrial fibrillation type: persistent Qualified Code(s): I48.1 - Persistent atrial fibrillation (4) Hypertension Assessment/Plan: -increased lisinopril to 10mg bid while on high dose steroids -continue coreg and lasix -expect to decrease lisinopril as steroids are decreased -normally on lisinopril 2.5mg bid at home Code(s): I10 - ESSENTIAL (PRIMARY) HYPERTENSION Qualifiers: Hypertension type: essential hypertension Qualified Code(s): I10 - Essential (primary) hypertension (5) Hypothyroid Assessment/Plan: -continue synthroid Code(s): E03.9 - HYPOTHYROIDISM, UNSPECIFIED
--- NOTE | 2018-09-10 16:20 | PN ---
Progress Note (short form) - Note Progress Note: s: no cp palps dizzy; sob improving o: Vital Signs Period Temp Pulse Resp BP Sys/Alvares Pulse Ox Last 24 Hr 97.2 F-98.3 F 50-57 18-18 146-163/69-77 95 Constitutional: Yes: Well Nourished, No Distress, Calm Cardiovascular: Yes: Regular Rate and Rhythm, Murmur (soft HSM apex), S1, S2. No: JVD, Gallop, S3, S4 Respiratory: Yes: Regular, Rales (bases), scattered rhonchi Extremities: No: Cold Edema: No Neurological: Yes: Alert, Oriented Psychiatric: No: Agitated no jaundice diaphoresis Current Medications Acetylcysteine (Mucomyst 20 Oral / Inh Use Only*) 200 mg NEB RQID [facility] Last Admin: 09/10/18 12:00 Dose: 200 mg Albuterol Sulfate (Ventolin 0.042trength) -) 1 amp NEB Q4H PRN PRN Reason: SHORT OF BREATH/WHEEZING Last Admin: 09/10/18 12:00 Dose: 1 amp Ascorbic Acid (Vitamin C -) 500 mg PO DAILY [facility] Last Admin: 09/10/18 12:00 Dose: 500 mg Calcium Carbonate/Cholecalciferol (Os-Wil 500+D -) 1 tab PO BID [facility] Last Admin: 09/10/18 12:00 Dose: 1 tab Carvedilol (Coreg -) 12.5 mg PO BID [facility] Last Admin: 09/10/18 11:59 Dose: 12.5 mg Cholecalciferol (Vitamin D3 -) 1,000 unit PO DAILY [facility] Last Admin: 09/10/18 12:00 Dose: 1,000 unit Digoxin (Lanoxin -) 0.125 mg PO Q2D@1000 [facility] Last Admin: 09/09/18 10:01 Dose: 0.125 mg Furosemide (Lasix -) 20 mg PO DAILY [facility] Last Admin: 09/10/18 12:00 Dose: 20 mg Gabapentin (Neurontin -) 300 mg PO DAILY [facility] Last Admin: 09/10/18 12:00 Dose: 300 mg Guaifenesin (Mucinex -) 1,200 mg PO BID [facility] Last Admin: 09/10/18 12:00 Dose: 1,200 mg Piperacillin Sod/Tazobactam (Sod 3.375 gm/ Dextrose) 50 mls @ 100 mls/hr IVPB Q8H-IV [facility]; Protocol Last Admin: 09/10/18 12:01 Dose: 100 mls/hr Lactobacillus Acidophilus (Bacid -) 1 tab PO DAILY [facility] Last Admin: 09/10/18 13:06 Dose: 1 tab Levothyroxine Sodium (Synthroid -) 25 mcg PO DAILY@0700 [facility] Last Admin: 09/10/18 06:12 Dose: 25 mcg Lisinopril (Prinivil) 10 mg PO BID [facility] Last Admin: 09/10/18 12:00 Dose: 10 mg Loratadine (Claritin -) 10 mg PO DAILY [facility] Last Admin: 09/10/18 12:00 Dose: 10 mg Methylprednisolone Sodium Succinate (Solu-Medrol -) 40 mg IVPUSH BID [facility] Last Admin: 09/10/18 12:01 Dose: 40 mg Pantoprazole Sodium (Protonix -) 20 mg PO DAILY [facility] Last Admin: 09/10/18 12:00 Dose: 20 mg Senna (Senna -) 1 tab PO DAILY PRN PRN Reason: CONSTIPATION Silver Sulfadiazine (Silvadene -) 1 applic TP DAILY [facility] Last Admin: 09/10/18 13:08 Dose: [address] chest: pna, no chf ecg: afib, vpaced echo 08/2014: mild lve, lvef 35%, global hk, nl rv, mild-mod mr, mod tr, mod phtn, increased rap, nl lap a/p: 88 f hx syst chf (nicm, lvef 35%), biv icd (medtronic), afib on coumadin, htn, pulm htn, recent le skin graft, who was sent from [facility] for sob. sob, pna, acute syst CHF: -cont abx per primary -no signs fluid overload/chf - on PO lasix -no signs acs -nebs, steroids per primary chronic syst chf: -cont lasix 20 po qd -s/p biv icd, nl fcn on ecg/tele htn: -labile bp here, likely related to steroids -has longstanding history of orthostasis with prior syncope -incr lisinopril 2.5 bid to 5 bid, now 10 mg BID --NOTE: should go back down to 2.5 bid when prednisone is stopped, as suspect she will develope symptomatic orthostatic hypotension again if remains on higher dose off steroids--please include this in transfer instructions when pt goes to SNF -cont carvedilol, decreased dose to 12.5 bid as she has bradycardia and doses have been held several times now afib: -rate controlled with bb, dig, continue -cont coumadin per INR - check dig level given bradycardia elevated trops: -borderline trop elevation with flat trend and nl ck similar to prior baseline values, not c/w acs
--- NOTE | 2018-09-10 19:05 | PN ---
Physical Exam: SUBJECTIVE: Patient seen and examined, complaining of constipation. OBJECTIVE: Vital Signs Period Temp Pulse Resp BP Sys/Alvares Pulse Ox Last 24 Hr 97.2 F-98.3 F 50-53 18-18 146-163/69-77 95 GENERAL: The patient is awake, alert, and fully oriented, in no acute distress. HEAD: Normal with no signs of trauma. EYES: PERRL, extraocular movements intact. ENT: Oropharynx clear without exudates, moist mucous membranes. NECK: Trachea midline, full range of motion, supple. LUNGS: Breath sounds crackles, rhonchi, no accessory muscle use. HEART: Regular rate and rhythm, S1, S2 without murmur, rub or gallop. ABDOMEN: Soft, nontender, nondistended, normoactive bowel sounds, no guarding. EXTREMITIES: 2+ pulses, warm, well-perfused, no edema. NEUROLOGICAL: Normal speech, gait not observed. PSYCH: Normal mood, normal affect. SKIN: Warm, dry, normal turgor, no rashes. Laboratory Results - last 24 hr 09/10/18 09/10/18 09/10/18 07:05 07:05 07:05 WBC 14.8 H RBC 4.47 Hgb 13.6 Hct 42.1 MCV 94.2 MCH 30.4 MCHC 32.3 RDW 15.5 Plt Count 314 MPV 7.8 Absolute Neuts (auto) 13.5 H Neutrophils % 91.4 H Neutrophils % (Manual) 91.0 H Band Neutrophils % 0.0 Lymphocytes % 4.0 L Lymphocytes % (Manual) 4.0 L D Monocytes % 4.4 Monocytes % (Manual) 5 Eosinophils % 0.0 Eosinophils % (Manual) 0.0 Basophils % 0.2 Basophils % (Manual) 0.0 Myelocytes % (Man) 0 D Promyelocytes % (Man) 0 Blast Cells % (Manual) 0 Nucleated RBC % 0 Metamyelocytes 0 Hypochromia 0 Platelet Estimate Normal Polychromasia 0 Poikilocytosis 0 Anisocytosis 0 Microcytosis 0 Macrocytosis 1+ PT with INR 30.00 H INR 2.52 H Sodium 138 Potassium 3.6 Chloride 98 Carbon Dioxide 35 H Anion Gap 6 L BUN 37 H Creatinine 1.0 Creat Clearance w eGFR 52.45 Random Glucose 172 H Calcium 8.9 Phosphorus 2.7 Magnesium 2.1 Active Medications Generic Name Dose Route Start Last Admin Trade Name Freq PRN Reason Stop Dose Admin Acetylcysteine 200 mg 09/08/18 12:01 09/10/18 12:00 Mucomyst 20 Oral / Inh Use Only* NEB 200 mg RQID ANANT Administration Albuterol Sulfate 1 amp 09/06/18 23:18 09/10/18 12:00 Ventolin 0.042trength) - NEB 1 amp Q4H PRN Administration SHORT OF BREATH/WHEEZING Ascorbic Acid 500 mg 09/07/18 10:00 09/10/18 12:00 Vitamin C - PO 500 mg DAILY ANANT Administration Calcium Carbonate/Cholecalciferol 1 tab 09/07/18 10:00 09/10/18 12:00 Os-Wil 500+D - PO 1 tab BID ANANT Administration Carvedilol 12.5 mg 09/09/18 11:16 09/10/18 11:59 Coreg - PO 12.5 mg BID ANANT Administration Cholecalciferol 1,000 unit 09/07/18 10:00 09/10/18 12:00 Vitamin D3 - PO 1,000 unit DAILY ANANT Administration Digoxin 0.125 mg 09/07/18 10:00 09/09/18 10:01 Lanoxin - PO 0.125 mg Q2D@1000 ANANT Administration Furosemide 20 mg 09/06/18 14:09 09/10/18 12:00 Lasix - PO 20 mg DAILY ANANT Administration Gabapentin 300 mg 09/07/18 10:00 09/10/18 12:00 Neurontin - PO 300 mg DAILY ANANT Administration Guaifenesin 1,200 mg 09/07/18 22:00 09/10/18 12:00 Mucinex - PO 1,200 mg BID ANANT Administration Piperacillin Sod/Tazobactam 50 mls @ 100 mls/hr 09/07/18 02:00 09/10/18 18:12 Sod 3.375 gm/ Dextrose IVPB 100 mls/hr Q8H-IV ANANT Administration Protocol Lactobacillus Acidophilus 1 tab 09/10/18 11:30 09/10/18 13:06 Bacid - PO 1 tab DAILY ANANT Administration Levothyroxine Sodium 25 mcg 09/07/18 07:00 09/10/18 06:12 Synthroid - PO 25 mcg DAILY@0700 ANANT Administration Lisinopril 10 mg 09/06/18 14:10 09/10/18 12:00 Prinivil PO 10 mg BID ANANT Administration Loratadine 10 mg 09/07/18 10:00 09/10/18 12:00 Claritin - PO 10 mg DAILY ANANT Administration Methylprednisolone Sodium Succinate 40 mg 09/07/18 22:00 09/10/18 12:01 Solu-Medrol - IVPUSH 40 mg BID ANANT Administration Pantoprazole Sodium 20 mg 09/07/18 10:00 09/10/18 12:00 Protonix - PO 20 mg DAILY ANANT Administration Senna 1 tab 09/06/18 23:18 Senna - PO DAILY PRN CONSTIPATION Silver Sulfadiazine 1 applic 09/07/18 10:00 09/10/18 13:08 Silvadene - TP 1 applic DAILY ANANT Administration ASSESSMENT/PLAN: 87 year old female with past medical history of afib on coumadin, chronic systolic HF (EF 45%), s/p PPM/ICD, herpes, HTN, CKD, sustained 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 lower extremities, while sitting next to heater a month ago, s/p wound vacc and skin graft, currently in rehab, now with cough, white sputum production , CXR +PNA Pneumonia -continue Zosyn, day 4 today -lung exam much improved today -continue solumedrol -continue mucinex and bronchodilators -mucomyst -f/u Pulm recommendations Acute on chronic diastolic CHF -continue lasix 20mg daily and digoxin Atrial fibrillation -continue coreg and digoxin -INR therapeutic 2.5 -continue coumadin 2.5 mg today and tomorrow 5 mg -recheck in am Hypertension -increased lisinopril to 10mg bid while on high dose steroids -continue coreg and lasix -expect to decrease lisinopril as steroids are decreased -normally on lisinopril 2.5mg bid at home Hypothyroid -continue synthroid DVT PPX: on AC F/E/N: no fluids/no changes/Na controlled Dispo: med surg Problem List - Problems (1) Acute on chronic diastolic CHF (congestive heart failure) Code(s): I50.33 - ACUTE ON CHRONIC DIASTOLIC (CONGESTIVE) HEART FAILURE (2) Hypothyroid Code(s): E03.9 - HYPOTHYROIDISM, UNSPECIFIED (3) Pneumonia Code(s): J18.9 - PNEUMONIA, UNSPECIFIED ORGANISM (4) Pneumonia Code(s): J18.9 - PNEUMONIA, UNSPECIFIED ORGANISM (5) Acute renal insufficiency Code(s): N28.9 - DISORDER OF KIDNEY AND URETER, UNSPECIFIED (6) Anemia Code(s): D64.9 - ANEMIA, UNSPECIFIED Qualifiers: Other causes of anemia: acute posthemorrhagic Qualified Code(s): D62 - Acute posthemorrhagic anemia (7) Atrial fibrillation Code(s): I48.91 - UNSPECIFIED ATRIAL FIBRILLATION Qualifiers: Atrial fibrillation type: persistent Qualified Code(s): I48.1 - Persistent atrial fibrillation (8) Biventricular automatic implantable cardioverter defibrillator in situ Code(s): Z95.810 - PRESENCE OF AUTOMATIC (IMPLANTABLE) CARDIAC DEFIBRILLATOR (9) Dehydration Code(s): E86.0 - DEHYDRATION (10) Epistaxis Code(s): R04.0 - EPISTAXIS (11) Failure to thrive Code(s): [id number] - (12) Hypertension Code(s): I10 - ESSENTIAL (PRIMARY) HYPERTENSION Qualifiers: Hypertension type: essential hypertension Qualified Code(s): I10 - Essential (primary) hypertension (13) Shingles outbreak Code(s): B02.9 - ZOSTER WITHOUT COMPLICATIONS (14) Status post right hip replacement Code(s): Z96.641 - PRESENCE OF RIGHT ARTIFICIAL HIP JOINT (15) Supratherapeutic INR Code(s): R79.1 - ABNORMAL COAGULATION PROFILE (16) Syncope and collapse Code(s): R55 - SYNCOPE AND COLLAPSE (17) Systolic CHF Code(s): I50.20 - UNSPECIFIED SYSTOLIC (CONGESTIVE) HEART FAILURE Qualifiers: Heart failure chronicity: chronic Qualified Code(s): I50.22 - Chronic systolic (congestive) heart failure (18) Weakness Code(s): R53.1 - WEAKNESS Visit type - Emergency Visit Emergency Visit: Yes ED Registration Date: 08/31/18 Care time: The patient presented to the Emergency Department on the above date and was hospitalized for further evaluation of their emergent condition. - New Patient This patient is new to me today: Yes Date on this admission: 09/10/18 - Critical Care Critical Care patient: No
[2018-09-10] MEDS ORDERED: WARFARIN NA 2.5 MG TABLET (FP) PO ONE (19:15)
[2018-09-11] MEDS ORDERED: PIPERACILLIN/TAZOBACTAM 3.375 GM VIAL IVPB ONE ×2 (00:43→10:53)
[2018-09-11] MEDS ORDERED: DEXTROSE 5%-WATER - 50 ML IVPB ONE ×2 (00:44→10:53)
[2018-09-11] MEDS: PIPERACILLIN/TAZOB 3.375 GM 3.375 GM in DEXTROSE 5%-WATER - 50 ML IVPB SCH ×2 (02:10→10:59)
[2018-09-11] MEDS: LISINOPRIL 10 MG TABLET (FP) PO SCH ×3 (05:55→22:15)
[2018-09-11] MEDS: LEVOTHYROXINE NA 25 MCG TABLET (FP) PO SCH (07:10)
[2018-09-11 07:49] LABS: BASO % 0.2 % (0-2.0); HEMATOCRIT 38.9 % (32.4-45.2); HEMOGLOBIN 12.7 GM/dL (10.7-15.3); LYMPH % 3.2 % (8-40); MCH 30.8 pg (25.7-33.7); MCHC 32.7 g/dl (32.0-36.0); MEAN CELL VOLUME 94.1 fl (80-96); MEAN PLT VOLUME 8.1 fl (7.5-11.1); NEUT % 92.6 % (42.8-82.8); PLATELET COUNT 292 K/MM3 (134-434); RBC 4.14 M/mm3 (3.60-5.2); WHITE BLOOD COUNT 18.4 K/mm3 (4.0-10.0)
[2018-09-11 08:07] LABS: INR 1.76 (0.83-1.09); PROTHROMBIN TIME (PATIENT) 20.9 SEC (9.7-13.0)
[2018-09-11 08:09] LABS: ACTIVATED PTT 31.2 SECONDS (25.2-36.5)
[2018-09-11] MEDS: ALBUTEROL SO4 0.042% IH SOL 1.25 MG/3 ML VIAL.NEB NEB PRN ×4 (08:09→20:50)
[2018-09-11] MEDS: ACETYLCYSTEINE 20% 200MG/ML 4 ML VIAL *FOR ORAL / INH USE ONLY NEB SCH ×4 (08:09→20:50)
[2018-09-11 08:20] LABS: ALBUMIN 2.5 g/dl (3.4-5.0); ALK PHOS 86 U/L (45-117); ANION GAP 8 MMOL/L (8-16); BILIRUBIN,TOTAL 0.6 mg/dL (0.2-1); BLOOD UREA NITROGEN 36 mg/dL (7-18); CALCIUM 8.9 mg/dL (8.5-10.1); CHLORIDE 98 mmol/L (98-107); CO2 31 mmol/L (21-32); CREATININE 0.8 mg/dL (0.55-1.3); GLUCOSE,RANDOM 176 mg/dL (74-106); POTASSIUM 3.4 mmol/L (3.5-5.1); SGOT/AST 20 U/L (15-37); SGPT/ALT 25 U/L (13-61); SODIUM 137 mmol/L (136-145); TOT PROT 6.3 g/dl (6.4-8.2)
[2018-09-11 09:56] LABS: ANISOCYTOSIS 0; HELMET CELLS 0; HOWELL-JOLLY BODIES 0; MACROCYTOSIS 0; OVALOCYTE 0; PLATELET ESTIMATE NORMAL; ROULEAU 0; SICKELED CELLS 0; TARGET CELLS 0; TEAR DROP CELLS 0; TOXIC GRANULATION 0
[2018-09-11] MEDS: GABAPENTIN 300 MG CAPSULE (FP) PO SCH (11:01)
[2018-09-11] MEDS: CHOLECALCIFEROL (VITAMIN D3) 1,000 UNIT TABLET (FP) PO SCH (11:01)
[2018-09-11] MEDS: CALCIUM 500MG/VIT-D 200 UNITS COMBO TABLET (FP) PO SCH ×2 (11:01→22:15)
[2018-09-11] MEDS: methylPREDNISolone NA SUCC 40 MG/1 ML VIAL IVPUSH SCH ×2 (11:02→22:15)
[2018-09-11] MEDS: CARVEDILOL 25 MG TABLET (FP) PO SCH ×2 (11:02→22:15)
[2018-09-11] MEDS: FUROSEMIDE 20 MG TABLET (FP) PO SCH (11:03)
[2018-09-11] MEDS: PANTOPRAZOLE 20 MG TABLET (FP) PO SCH (11:03)
[2018-09-11] MEDS: LORATADINE 10 MG TABLET PO SCH (11:05)
[2018-09-11] MEDS: ASCORBIC ACID 500 MG TABLET (FP) PO SCH (11:05)
[2018-09-11] MEDS: LACTOBACILLUS ACIDOPHILUS 1 TABLET PO SCH (11:05)
[2018-09-11] MEDS: DIGOXIN 0.125 MG TABLET (FP) PO SCH (11:10)
[2018-09-11] MEDS: guaiFENesin 600 MG TABLET.ER (FP) PO SCH ×2 (11:10→22:15)
[2018-09-11] MEDS: SILVER SULFADIAZINE 1% TOP CREAM 400 GM JAR TP SCH (11:17)
--- NOTE | 2018-09-11 11:21 | PN ---
Progress Note (short form) - Note Progress Note: PULMONARY Breathing better but still with nonproductive cough. No fevers. Feels weak. Vital Signs Period Temp Pulse Resp BP Sys/Alvares Pulse Ox Last 24 Hr 97.4 F-98.3 F 50-53 18-20 143-170/63-93 95 Gen: NAD at rest Heart: RRR Lung: scattered rhonchi, wheezes Abd: soft, nontender Ext: no edema CBC, BMP 09/11/18 07:00 09/11/18 07:00 Active Medications Acetylcysteine (Mucomyst 20 Oral / Inh Use Only*) 200 mg NEB RQID [facility] Last Admin: 09/11/18 08:09 Dose: 200 mg Albuterol Sulfate (Ventolin 0.042trength) -) 1 amp NEB Q4H PRN PRN Reason: SHORT OF BREATH/WHEEZING Last Admin: 09/11/18 08:09 Dose: 1 amp Ascorbic Acid (Vitamin C -) 500 mg PO DAILY [facility] Last Admin: 09/11/18 11:05 Dose: 500 mg Calcium Carbonate/Cholecalciferol (Os-Wil 500+D -) 1 tab PO BID [facility] Last Admin: 09/11/18 11:01 Dose: 1 tab Carvedilol (Coreg -) 12.5 mg PO BID [facility] Last Admin: 09/11/18 11:02 Dose: 12.5 mg Cholecalciferol (Vitamin D3 -) 1,000 unit PO DAILY [facility] Last Admin: 09/11/18 11:01 Dose: 1,000 unit Digoxin (Lanoxin -) 0.125 mg PO Q2D@1000 [facility] Last Admin: 09/11/18 11:10 Dose: 0.125 mg Furosemide (Lasix -) 20 mg PO DAILY [facility] Last Admin: 09/11/18 11:03 Dose: 20 mg Gabapentin (Neurontin -) 300 mg PO DAILY [facility] Last Admin: 09/11/18 11:01 Dose: 300 mg Guaifenesin (Mucinex -) 1,200 mg PO BID [facility] Last Admin: 09/11/18 11:10 Dose: 1,200 mg Piperacillin Sod/Tazobactam (Sod 3.375 gm/ Dextrose) 50 mls @ 100 mls/hr IVPB Q8H-IV ANANT; Protocol Last Admin: 09/11/18 10:59 Dose: 100 mls/hr Lactobacillus Acidophilus (Bacid -) 1 tab PO DAILY [facility] Last Admin: 09/11/18 11:05 Dose: 1 tab Levothyroxine Sodium (Synthroid -) 25 mcg PO DAILY@0700 [facility] Last Admin: 09/11/18 07:10 Dose: 25 mcg Lisinopril (Prinivil) 10 mg PO BID [facility] Last Admin: 09/11/18 10:49 Dose: Not Given Loratadine (Claritin -) 10 mg PO DAILY [facility] Last Admin: 09/11/18 11:05 Dose: 10 mg Methylprednisolone Sodium Succinate (Solu-Medrol -) 40 mg IVPUSH BID [facility] Last Admin: 09/11/18 11:02 Dose: 40 mg Pantoprazole Sodium (Protonix -) 20 mg PO DAILY [facility] Last Admin: 09/11/18 11:03 Dose: 20 mg Senna (Senna -) 1 tab PO DAILY PRN PRN Reason: CONSTIPATION Silver Sulfadiazine (Silvadene -) 1 applic TP DAILY [facility] Last Admin: 09/11/18 11:17 Dose: 1 applic Warfarin Sodium (Coumadin -) 5 mg PO DAILY@1800 [facility] A/P Pneumonia CAD NICM Atrial Fibrillation +Troponins likely Demand Ischemia HTN - continue antibiotics - continue medrol, hope to transition to PO tomorrow - inhaled bronchodilators - O2 to keep spO2 >90% - rate controlled - continue anticoagulation
[2018-09-11] MEDS ORDERED: POTASSIUM CHLORIDE TABS 20 MEQ TABLET.ER (FP) PO ONE (12:37)
--- NOTE | 2018-09-11 16:19 | PN ---
Progress Note (short form) - Note Progress Note: feels better today less cough Vital Signs Period Temp Pulse Resp BP Sys/Alvares Pulse Ox Last 24 Hr 97.4 F-97.9 F 50-55 18-20 138-170/57-93 95-97 cor-rrr lungs clear abd soft,nt ext dressing intact CBC, BMP 09/11/18 07:00 09/11/18 07:00 Microbiology 09/08/18 09:40 Sputum - Expectorated Gram Stain - Final 09/08/18 09:40 Sputum - Expectorated Sputum Culture - Final Yeast Like Organism 09/06/18 11:24 Throat Throat Culture - Final NO BETA HEMOLYTIC STREPTOCOCCI ISOLATED 08/31/18 13:15 Blood - Peripheral Venous Blood Culture - Final NO GROWTH AFTER 5 DAYS INCUBATION 08/31/18 13:15 Blood - Peripheral Venous Blood Culture - Final NO GROWTH AFTER 5 DAYS INCUBATION 09/02/18 11:00 Nares - Right Nares MRSA Screen - Final NO MRSA ISOLATED 09/02/18 11:00 Nares - Left Nares MRSA Screen - Final NO MRSA ISOLATED 08/31/18 15:51 Urine - Urine - Catheterized Urine Culture - Final NO GROWTH OBTAINED 09/01/18 13:00 Urine For Antigen Detection Legionella Antigen - Final 09/01/18 13:00 Urine For Antigen Detection Streptococcus pneumoniae Antigen (M - Final a/p HCAP- day #10 zosyn- d/c today has completed 5 days zithromax urine legionella antigen negative nares for MRSA negative continue nebs and steroids added mucolytics clinically improved please call back if needed s/p wiseman to her legs- STSG history of chf- on lasix on steroids as well add probiotics Problem List - Problems (1) Pneumonia Code(s): J18.9 - PNEUMONIA, UNSPECIFIED ORGANISM
[2018-09-11] MEDS ORDERED: WARFARIN NA 5 MG TABLET (UD) PO SCH (18:00)
--- NOTE | 2018-09-11 18:21 | PN ---
Teaching Attending Note Name of Resident: Angie Dos Santos ATTENDING PHYSICIAN STATEMENT I saw and evaluated the patient. I reviewed the resident's note and discussed the case with the resident. I agree with the resident's findings and plan as documented. SUBJECTIVE: Ms Yuen says she is feeling better but feels weak. Denies cp and n/ v. Still with some sob but improved OBJECTIVE: Last Vital Signs Temp Pulse Resp BP Pulse Ox 36.5 C 55 L 20 138/57 L 97 09/11/18 16:07 09/11/18 16:07 09/11/18 16:07 09/11/18 16:07 09/11/18 10:00 Gen: nad Pulm: diffuse ronchi with wheezing, much improved CV: rrr w/o m/r/g Abd: +bs, s/nt/nd Ext: no c/c/e CBC, BMP 09/11/18 07:00 09/11/18 07:00 ASSESSMENT AND PLAN: (1) Pneumonia Assessment/Plan: -finished full course of zosyn and zithromax -appreciate ID assistance -case d/w Dr Hinton -continue solumedrol 40mg IV bid today -continue mucomyst and mucinex -continue bronchodilators -improving Code(s): J18.9 - PNEUMONIA, UNSPECIFIED ORGANISM (2) Acute on chronic diastolic CHF (congestive heart failure) Assessment/Plan: -continue lasix 20mg daily and digoxin Code(s): I50.33 - ACUTE ON CHRONIC DIASTOLIC (CONGESTIVE) HEART FAILURE (3) Atrial fibrillation Assessment/Plan: -continue coreg and digoxin -INR subtherapeutic today -increase coumadin dose today Code(s): I48.91 - UNSPECIFIED ATRIAL FIBRILLATION Qualifiers: Atrial fibrillation type: persistent Qualified Code(s): I48.1 - Persistent atrial fibrillation (4) Hypertension Assessment/Plan: -increased lisinopril to 10mg bid while on high dose steroids -continue coreg and lasix -expect to decrease lisinopril as steroids are decreased -normally on lisinopril 2.5mg bid at home Code(s): I10 - ESSENTIAL (PRIMARY) HYPERTENSION Qualifiers: Hypertension type: essential hypertension Qualified Code(s): I10 - Essential (primary) hypertension (5) Hypothyroid Assessment/Plan: -continue synthroid Code(s): E03.9 - HYPOTHYROIDISM, UNSPECIFIED Problem List - Problems (1) Pneumonia Code(s): J18.9 - PNEUMONIA, UNSPECIFIED ORGANISM (2) Acute on chronic diastolic CHF (congestive heart failure) Code(s): I50.33 - ACUTE ON CHRONIC DIASTOLIC (CONGESTIVE) HEART FAILURE (3) Atrial fibrillation Code(s): I48.91 - UNSPECIFIED ATRIAL FIBRILLATION Qualifiers: Atrial fibrillation type: persistent Qualified Code(s): I48.1 - Persistent atrial fibrillation (4) Hypertension Code(s): I10 - ESSENTIAL (PRIMARY) HYPERTENSION Qualifiers: Hypertension type: essential hypertension Qualified Code(s): I10 - Essential (primary) hypertension (5) Hypothyroid Code(s): E03.9 - HYPOTHYROIDISM, UNSPECIFIED
--- NOTE | 2018-09-11 18:35 | PN ---
Physical Exam: SUBJECTIVE: Patient seen and examined, feeling good, no complaints. OBJECTIVE: Vital Signs Period Temp Pulse Resp BP Sys/Alvares Pulse Ox Last 24 Hr 97.4 F-97.7 F 50-55 18-20 138-170/57-93 95-97 GENERAL: The patient is awake, alert, and fully oriented, in no acute distress, on NC. HEAD: Normal with no signs of trauma. EYES: PERRL, extraocular movements intact. ENT: Oropharynx clear without exudates, moist mucous membranes. NECK: Trachea midline, full range of motion, supple. LUNGS: Breath sounds: crackles, rhonchi, no accessory muscle use. HEART: Regular rate and rhythm, S1, S2 without murmur, rub or gallop. ABDOMEN: Soft, nontender, nondistended, normoactive bowel sounds, no guarding. EXTREMITIES: 2+ pulses, warm, well-perfused, no edema. NEUROLOGICAL: Normal speech, gait not observed. PSYCH: Normal mood, normal affect. SKIN: Warm, dry, normal turgor, no rashes. Laboratory Results - last 24 hr 09/11/18 09/11/18 09/11/18 07:00 07:00 07:00 WBC 18.4 H RBC 4.14 Hgb 12.7 Hct 38.9 MCV 94.1 MCH 30.8 MCHC 32.7 RDW 15.0 Plt Count 292 MPV 8.1 Absolute Neuts (auto) 17.1 H Neutrophils % 92.6 H Neutrophils % (Manual) 94.0 H Band Neutrophils % 0.0 Lymphocytes % 3.2 L Lymphocytes % (Manual) 4.0 L Monocytes % 4.0 Monocytes % (Manual) 2 L Eosinophils % 0.0 Eosinophils % (Manual) 0.0 Basophils % 0.2 Basophils % (Manual) 0.0 Myelocytes % (Man) 0 Promyelocytes % (Man) 0 Blast Cells % (Manual) 0 Nucleated RBC % 0 Metamyelocytes 0 Hypochromia 0 Toxic Granulation 0 Dohle Bodies 0 Platelet Estimate Normal Polychromasia 0 Poikilocytosis 0 Basophilic Stippling 0 Anisocytosis 0 Microcytosis 0 Macrocytosis 0 Spherocytes 0 Sickle Cells 0 Target Cells 0 Tear Drop Cells 0 Ovalocytes 0 Stomatocytes 0 Helmet Cells 0 [place] Bodies 0 Broussard Rings 0 Ney Cells 0 Acanthocytes (Spur) 0 Rouleaux 0 Fragmented RBCs 0 Schistocytes 0 PT with INR 20.90 H INR 1.76 H PTT (Actin FS) 31.2 Sodium 137 Potassium 3.4 L Chloride 98 Carbon Dioxide 31 Anion Gap 8 BUN 36 H Creatinine 0.8 Creat Clearance w eGFR 67.85 Random Glucose 176 H Calcium 8.9 Total Bilirubin 0.6 AST 20 ALT 25 Alkaline Phosphatase 86 Total Protein 6.3 L Albumin 2.5 L Digoxin 0.39 L Active Medications Generic Name Dose Route Start Last Admin Trade Name Freq PRN Reason Stop Dose Admin Acetylcysteine 200 mg 09/08/18 12:01 09/11/18 15:36 Mucomyst 20 Oral / Inh Use Only* NEB 200 mg RQID ANANT Administration Albuterol Sulfate 1 amp 09/06/18 23:18 09/11/18 15:37 Ventolin 0.042trength) - NEB 1 amp Q4H PRN Administration SHORT OF BREATH/WHEEZING Ascorbic Acid 500 mg 09/07/18 10:00 09/11/18 11:05 Vitamin C - PO 500 mg DAILY [facility]NANT Administration Calcium Carbonate/Cholecalciferol 1 tab 09/07/18 10:00 09/11/18 11:01 Os-Wil 500+D - PO 1 tab BID ANANT Administration Carvedilol 12.5 mg 09/09/18 11:16 09/11/18 11:02 Coreg - PO 12.5 mg BID ANANT Administration Cholecalciferol 1,000 unit 09/07/18 10:00 09/11/18 11:01 Vitamin D3 - PO 1,000 unit DAILY [facility]NANT Administration Digoxin 0.125 mg 09/07/18 10:00 09/11/18 11:10 Lanoxin - PO 0.125 mg Q2D@1000 ANA[facility] Administration Furosemide 20 mg 09/06/18 14:09 09/11/18 11:03 Lasix - PO 20 mg DAILY [facility] Administration Gabapentin 300 mg 09/07/18 10:00 09/11/18 11:01 Neurontin - PO 300 mg DAILY [facility] Administration Guaifenesin 1,200 mg 09/07/18 22:00 09/11/18 11:10 Mucinex - PO 1,200 mg BID ANANT Administration Lactobacillus Acidophilus 1 tab 09/10/18 11:30 09/11/18 11:05 Bacid - PO 1 tab DAILY [facility] Administration Levothyroxine Sodium 25 mcg 09/07/18 07:00 09/11/18 07:10 Synthroid - PO 25 mcg DAILY@0700 [facility] Administration Lisinopril 10 mg 09/06/18 14:10 09/11/18 10:49 Prinivil PO Not Given BID [facility] Loratadine 10 mg 09/07/18 10:00 09/11/18 11:05 Claritin - PO 10 mg DAILY [facility] Administration Methylprednisolone Sodium Succinate 40 mg 09/07/18 22:00 09/11/18 11:02 Solu-Medrol - IVPUSH 40 mg BID ANANT Administration Pantoprazole Sodium 20 mg 09/07/18 10:00 09/11/18 11:03 Protonix - PO 20 mg DAILY [facility] Administration Senna 1 tab 09/06/18 23:18 Senna - PO DAILY PRN CONSTIPATION Silver Sulfadiazine 1 applic 09/07/18 10:00 09/11/18 11:17 Silvadene - TP 1 applic DAILY [facility] Administration Warfarin Sodium 5 mg 09/11/18 18:00 09/11/18 17:37 Coumadin - PO 5 mg DAILY@1800 [facility] Administration ASSESSMENT/PLAN: 87 year old female with past medical history of afib on coumadin, chronic systolic HF (EF 45%), s/p PPM/ICD, herpes, HTN, CKD, sustained 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 lower extremities, while sitting next to heater a month ago, s/p wound vacc and skin graft, currently in rehab, now with cough, white sputum production , CXR +PNA Pneumonia -Zosyn stopped today -lung exam much improved today -continue solumedrol 40 mg BID -continue mucinex and bronchodilators -mucomyst -f/u Pulm recommendationsmicro; yeast -urine legionella neg Acute on chronic diastolic CHF -continue lasix 20mg daily and digoxin -digoxin 0.39 today Atrial fibrillation -continue coreg and digoxin -INR therapeutic 2.5 -continue coumadin 2.5 mg today and tomorrow 5 mg -recheck in am Hypertension -increased lisinopril to 10mg bid while on high dose steroids -continue coreg and lasix -expect to decrease lisinopril as steroids are decreased -normally on lisinopril 2.5mg bid at home Hypothyroid -continue synthroid Wound in LE s/p wiseman: -Dr Ngo will see the patient tomorrow DVT PPX: on AC F/E/N: no fluids/no changes/Na controlled Dispo: med surg Problem List - Problems (1) Acute on chronic diastolic CHF (congestive heart failure) Code(s): I50.33 - ACUTE ON CHRONIC DIASTOLIC (CONGESTIVE) HEART FAILURE (2) Hypothyroid Code(s): E03.9 - HYPOTHYROIDISM, UNSPECIFIED (3) Pneumonia Code(s): J18.9 - PNEUMONIA, UNSPECIFIED ORGANISM (4) Pneumonia Code(s): J18.9 - PNEUMONIA, UNSPECIFIED ORGANISM (5) Acute renal insufficiency Code(s): N28.9 - DISORDER OF KIDNEY AND URETER, UNSPECIFIED (6) Anemia Code(s): D64.9 - ANEMIA, UNSPECIFIED Qualifiers: Other causes of anemia: acute posthemorrhagic Qualified Code(s): D62 - Acute posthemorrhagic anemia (7) Atrial fibrillation Code(s): I48.91 - UNSPECIFIED ATRIAL FIBRILLATION Qualifiers: Atrial fibrillation type: persistent Qualified Code(s): I48.1 - Persistent atrial fibrillation (8) Biventricular automatic implantable cardioverter defibrillator in situ Code(s): Z95.810 - PRESENCE OF AUTOMATIC (IMPLANTABLE) CARDIAC DEFIBRILLATOR (9) Dehydration Code(s): E86.0 - DEHYDRATION (10) Epistaxis Code(s): R04.0 - EPISTAXIS (11) Failure to thrive Code(s): IHC2795 - (12) Hypertension Code(s): I10 - ESSENTIAL (PRIMARY) HYPERTENSION Qualifiers: Hypertension type: essential hypertension Qualified Code(s): I10 - Essential (primary) hypertension (13) Shingles outbreak Code(s): B02.9 - ZOSTER WITHOUT COMPLICATIONS (14) Status post right hip replacement Code(s): Z96.641 - PRESENCE OF RIGHT ARTIFICIAL HIP JOINT (15) Supratherapeutic INR Code(s): R79.1 - ABNORMAL COAGULATION PROFILE (16) Syncope and collapse Code(s): R55 - SYNCOPE AND COLLAPSE (17) Systolic CHF Code(s): I50.20 - UNSPECIFIED SYSTOLIC (CONGESTIVE) HEART FAILURE Qualifiers: Heart failure chronicity: chronic Qualified Code(s): I50.22 - Chronic systolic (congestive) heart failure (18) Weakness Code(s): R53.1 - WEAKNESS Visit type - Emergency Visit Emergency Visit: Yes ED Registration Date: 08/31/18 Care time: The patient presented to the Emergency Department on the above date and was hospitalized for further evaluation of their emergent condition. - New Patient This patient is new to me today: No - Critical Care Critical Care patient: No
[2018-09-12 06:42] LABS: BASO % 0.1 % (0-2.0); HEMATOCRIT 41.7 % (32.4-45.2); HEMOGLOBIN 13.7 GM/dL (10.7-15.3); MCH 31.1 pg (25.7-33.7); MCHC 32.9 g/dl (32.0-36.0); MEAN CELL VOLUME 94.6 fl (80-96); MEAN PLT VOLUME 8.4 fl (7.5-11.1); MONO % 3.1 % (3.8-10.2); NEUT % 94.8 % (42.8-82.8); PLATELET COUNT 267 K/MM3 (134-434); RBC 4.41 M/mm3 (3.60-5.2); RDW 15.5 % (11.6-15.6); WHITE BLOOD COUNT 18.5 K/mm3 (4.0-10.0)
[2018-09-12] MEDS: LEVOTHYROXINE NA 25 MCG TABLET (FP) PO SCH (06:56)
[2018-09-12 07:10] LABS: INR 1.88 (0.83-1.09); PROTHROMBIN TIME (PATIENT) 22.3 SEC (9.7-13.0)
[2018-09-12 07:13] LABS: ALBUMIN 2.3 g/dl (3.4-5.0); ALK PHOS 86 U/L (45-117); ANION GAP 4 MMOL/L (8-16); BILIRUBIN,TOTAL 0.4 mg/dL (0.2-1); BLOOD UREA NITROGEN 37 mg/dL (7-18); CALCIUM 8.6 mg/dL (8.5-10.1); CHLORIDE 100 mmol/L (98-107); CO2 36 mmol/L (21-32); CREATININE 0.7 mg/dL (0.55-1.3); GLUCOSE,RANDOM 167 mg/dL (74-106); POTASSIUM 3.5 mmol/L (3.5-5.1); SGOT/AST 17 U/L (15-37); SGPT/ALT 23 U/L (13-61); SODIUM 139 mmol/L (136-145); TOT PROT 5.9 g/dl (6.4-8.2)
[2018-09-12] MEDS: ALBUTEROL SO4 0.042% IH SOL 1.25 MG/3 ML VIAL.NEB NEB PRN (08:25)
[2018-09-12] MEDS: ACETYLCYSTEINE 20% 200MG/ML 4 ML VIAL *FOR ORAL / INH USE ONLY NEB SCH (08:25)
--- NOTE | 2018-09-12 08:39 | PN ---
Progress Note (short form) - Note Progress Note: Hospitalist to document today. Recovering from pneumonia and awaiting transfer to SNF. Dr. Ngo from wound care will see her today before discharge.
[2018-09-12] MEDS ORDERED: predniSONE 20 MG TABLET (UD) PO SCH (10:00)
[2018-09-12] MEDS: guaiFENesin 600 MG TABLET.ER (FP) PO SCH (10:05)
[2018-09-12] MEDS: PANTOPRAZOLE 20 MG TABLET (FP) PO SCH (10:05)
[2018-09-12] MEDS: ASCORBIC ACID 500 MG TABLET (FP) PO SCH (10:05)
[2018-09-12] MEDS: LORATADINE 10 MG TABLET PO SCH (10:06)
[2018-09-12] MEDS: LISINOPRIL 10 MG TABLET (FP) PO SCH (10:07)
[2018-09-12] MEDS: GABAPENTIN 300 MG CAPSULE (FP) PO SCH (10:07)
[2018-09-12] MEDS: CALCIUM 500MG/VIT-D 200 UNITS COMBO TABLET (FP) PO SCH (10:07)
[2018-09-12] MEDS: CHOLECALCIFEROL (VITAMIN D3) 1,000 UNIT TABLET (FP) PO SCH (10:07)
[2018-09-12] MEDS: FUROSEMIDE 20 MG TABLET (FP) PO SCH (10:07)
[2018-09-12] MEDS: LACTOBACILLUS ACIDOPHILUS 1 TABLET PO SCH (10:07)
[2018-09-12] MEDS: CARVEDILOL 25 MG TABLET (FP) PO SCH (10:08)
--- NOTE | 2018-09-12 10:18 | DS ---
Physical Exam: SUBJECTIVE: Patient seen and examined OBJECTIVE: Vital Signs Period Temp Pulse Resp BP Sys/Alvares Pulse Ox Last 24 Hr 97.3 F-98.0 F 52-61 20-20 127-156/57-75 97 PHYSICAL EXAM GENERAL: The patient is awake, alert, and fully oriented, in no acute distress. HEAD: Normal with no signs of trauma. EYES: PERRL, extraocular movements intact, sclera anicteric, conjunctiva clear. ENT: Ears normal, nares patent, oropharynx clear without exudates, moist mucous membranes. NECK: Trachea midline, full range of motion, supple. LUNGS: Breath sounds equal, clear to auscultation bilaterally, no wheezes, no crackles, no accessory muscle use. HEART: Regular rate and rhythm, S1, S2 without murmur, rub or gallop. ABDOMEN: Soft, nontender, nondistended, normoactive bowel sounds, no guarding, no rebound, no hepatosplenomegaly, no masses. EXTREMITIES: 2+ pulses, warm, well-perfused, no edema. NEUROLOGICAL: Cranial nerves II through XII grossly intact. Normal speech, gait not observed. PSYCH: Normal mood, normal affect. SKIN: Warm, dry, normal turgor, no rashes or lesions noted. LABS Laboratory Results - last 24 hr 09/11/18 09/12/18 09/12/18 07:00 06:00 06:00 WBC 18.5 H RBC 4.41 Hgb 13.7 Hct 41.7 MCV 94.6 MCH 31.1 MCHC 32.9 RDW 15.5 Plt Count 267 MPV 8.4 Absolute Neuts (auto) 17.5 H Neutrophils % 94.8 H Neutrophils % (Manual) 94.0 H Band Neutrophils % 0.0 Lymphocytes % 2.0 L D Lymphocytes % (Manual) 4.0 L Monocytes % 3.1 L Monocytes % (Manual) 2 L Eosinophils % 0.0 Eosinophils % (Manual) 0.0 Basophils % 0.1 Basophils % (Manual) 0.0 Myelocytes % (Man) 0 Promyelocytes % (Man) 0 Blast Cells % (Manual) 0 Nucleated RBC % 0 Metamyelocytes 0 Hypochromia 0 Toxic Granulation 0 Dohle Bodies 0 Platelet Estimate Normal Polychromasia 0 Poikilocytosis 0 Basophilic Stippling 0 Anisocytosis 0 Microcytosis 0 Macrocytosis 0 Spherocytes 0 Sickle Cells 0 Target Cells 0 Tear Drop Cells 0 Ovalocytes 0 Stomatocytes 0 Helmet Cells 0 Bills-[place] Bodies 0 [place] Rings 0 Ney Cells 0 Acanthocytes (Spur) 0 Rouleaux 0 Fragmented RBCs 0 Schistocytes 0 PT with INR 22.30 H INR 1.88 H Sodium Potassium Chloride Carbon Dioxide Anion Gap BUN Creatinine Creat Clearance w eGFR Random Glucose Calcium Total Bilirubin AST ALT Alkaline Phosphatase Total Protein Albumin 09/12/18 06:00 WBC RBC Hgb Hct MCV MCH MCHC RDW Plt Count MPV Absolute Neuts (auto) Neutrophils % Neutrophils % (Manual) Band Neutrophils % Lymphocytes % Lymphocytes % (Manual) Monocytes % Monocytes % (Manual) Eosinophils % Eosinophils % (Manual) Basophils % Basophils % (Manual) Myelocytes % (Man) Promyelocytes % (Man) Blast Cells % (Manual) Nucleated RBC % Metamyelocytes Hypochromia Toxic Granulation Dohle Bodies Platelet Estimate Polychromasia Poikilocytosis Basophilic Stippling Anisocytosis Microcytosis Macrocytosis Spherocytes Sickle Cells Target Cells Tear Drop Cells Ovalocytes Stomatocytes Helmet Cells Bills-[place] Bodies [place] Rings [facility] Cells Acanthocytes (Spur) Rouleaux Fragmented RBCs Schistocytes PT with INR INR Sodium 139 Potassium 3.5 Chloride 100 Carbon Dioxide 36 H Anion Gap 4 L BUN 37 H Creatinine 0.7 Creat Clearance w eGFR 79.15 Random Glucose 167 H Calcium 8.6 Total Bilirubin 0.4 AST 17 ALT 23 Alkaline Phosphatase 86 Total Protein 5.9 L Albumin 2.3 L HOSPITAL COURSE: Date of Admission:08/31/18 Date of Discharge: 09/12/18 Discharge Summary Reason For Visit: WEAKNESS,ACUTE ON CHRONIC DIASTOLIC CHF,PNEUMONIA Current Active Problems Acute on chronic diastolic CHF (congestive heart failure) (Acute) Hypothyroid (Acute) Pneumonia (Acute) Condition: Stable - Instructions Diet, Activity, Other Instructions: Ms. Yuen, you have been treated in the hospital for pneumonia. Please continue taking the antibiotic and other prescribed medications as described below: Medications: Coumadin 2.5 mg today on and then check INR. Lisinopril 10 g mg twice daily. It may be decreased to 25 mg BID when you stop Prednisone taper Prednisone Taper: 60mg for two days (6 pills per day) 50mg for two days (5 pills per day) 40mg for two days (4 pills per day) 30mg for two days (3 pills per day) 20mg for two days (2 pills per day) 10 mg for 2 days (1 pill per day) Continue taking lasix 20mg daily for now till further instructed by Dr. Dao. Continue taking the rest of your medications as prescribed; including digoxin, coreg, levothyroxine WOUND CARE: Please keep legs elevated and keep wounds dry and follow up with Dr. Ngo in 3 -5 days for wound check. INSTRUCTIONS: Weigh yourself daily and notify doctor if weight gain > 3lbs in 2 days. Continued Chest physiotherapy twice daily. Incentive spirometry every hour as able. FOLLOW UP: INR CHECK ON 09/06/2018 AND FURTHER COUMADIN PER SNF DOCTOR 2 times a week a least Blood work to check your kidneys BMP (basic metabolic panel) in 1 week with your doctor. Follow up with Dr. Long after dc from rehab. Follow up with Dr. Dao in 1 week. Please continue to follow up with Dr. Ngo for wound care. Please note that you will need close monitoring of your fluid status and kidneys with your doctor and hearing aid repairer after discharge. If you experience any worsening of symptoms including chest pain, shortness of breath, fever, chills, please return to the emergency room. The Rehab MD should be aware that as prednisone dose falls her lisinopril may need to return to home levels of 2.5 mg BID Referrals: Silvestre Long MD [Primary Care Provider] - Ab Dao MD [Staff Physician] - Sharon Ngo MD [Staff Physician] - Disposition: LONG TERM FACILITY - Home Medications Comprehensive Discharge Medication List: Ambulatory Orders Ascorbic Acid [Vitamin C] 500 mg PO DAILY 01/21/15 Calcium/Magnesium/Vit D3 [Calcium 500 mg Tablet] 1 each PO BID 01/21/15 Biotin 5,000 mcg PO DAILY 05/14/15 Sennosides [Senna -] 1 tab PO PRN PRN 05/14/15 Levothyroxine [Synthroid -] 0.025 mcg PO DAILY 02/15/17 Silver Sulfadiazine 1% Top Cr [Silvadene -] 1 applic TP DAILY 7 Days #1 jar Cetirizine HCl [Zyrtec -] 10 mg PO DAILY 08/14/18 Cholecalciferol (Vitamin D3) [Vitamin D -] 1,000 unit PO DAILY 08/14/18 Digoxin [Lanoxin -] 0.125 mg PO ASDIR 08/14/18 Gabapentin [Neurontin -] 300 mg PO DAILY 08/14/18 Carvedilol [Coreg -] 25 mg PO BID 08/31/18 Saccharomyces Boulardii [Florastor] 250 mg PO BID 09/01/18 Albuterol 2.5/Ipratropium 0.5 [Duoneb -] 1 amp NEB RQID amp 09/04/18 Albuterol Sulfate 0.042% [Ventolin 0.042% (Half-Strength) -] 1 amp NEB Q4H PRN amp 09/04/18 Furosemide [Lasix -] 20 mg PO DAILY tablet 09/12/18 Lactobacillus Acidophilus [Bacid -] 1 tab PO DAILY tab 09/12/18 Lisinopril [Prinivil] 10 mg PO BID tablet 09/12/18 Pantoprazole Sodium [Protonix -] 20 mg PO DAILY tablet.ec 09/12/18 Prednisone See Taper PO DAILY 12 Days #42 tablet 09/12/18 Warfarin Sodium [Coumadin] 2.5 mg PO DAILY 1 Days #1 tablet 09/12/18 Problem List - Problems (1) Acute on chronic diastolic CHF (congestive heart failure) Code(s): I50.33 - ACUTE ON CHRONIC DIASTOLIC (CONGESTIVE) HEART FAILURE (2) Hypothyroid Code(s): E03.9 - HYPOTHYROIDISM, UNSPECIFIED (3) Pneumonia Code(s): J18.9 - PNEUMONIA, UNSPECIFIED ORGANISM (4) Pneumonia Code(s): J18.9 - PNEUMONIA, UNSPECIFIED ORGANISM (5) Acute renal insufficiency Code(s): N28.9 - DISORDER OF KIDNEY AND URETER, UNSPECIFIED (6) Anemia Code(s): D64.9 - ANEMIA, UNSPECIFIED Qualifiers: Other causes of anemia: acute posthemorrhagic Qualified Code(s): D62 - Acute posthemorrhagic anemia (7) Atrial fibrillation Code(s): I48.91 - UNSPECIFIED ATRIAL FIBRILLATION Qualifiers: Atrial fibrillation type: persistent Qualified Code(s): I48.1 - Persistent atrial fibrillation (8) Biventricular automatic implantable cardioverter defibrillator in situ Code(s): Z95.810 - PRESENCE OF AUTOMATIC (IMPLANTABLE) CARDIAC DEFIBRILLATOR (9) Dehydration Code(s): E86.0 - DEHYDRATION (10) Epistaxis Code(s): R04.0 - EPISTAXIS (11) Failure to thrive Code(s): ICQ9815 - (12) Hypertension Code(s): I10 - ESSENTIAL (PRIMARY) HYPERTENSION Qualifiers: Hypertension type: essential hypertension Qualified Code(s): I10 - Essential (primary) hypertension (13) Shingles outbreak Code(s): B02.9 - ZOSTER WITHOUT COMPLICATIONS (14) Status post right hip replacement Code(s): Z96.641 - PRESENCE OF RIGHT ARTIFICIAL HIP JOINT (15) Supratherapeutic INR Code(s): R79.1 - ABNORMAL COAGULATION PROFILE (16) Syncope and collapse Code(s): R55 - SYNCOPE AND COLLAPSE (17) Systolic CHF Code(s): I50.20 - UNSPECIFIED SYSTOLIC (CONGESTIVE) HEART FAILURE Qualifiers: Heart failure chronicity: chronic Qualified Code(s): I50.22 - Chronic systolic (congestive) heart failure (18) Weakness Code(s): R53.1 - WEAKNESS - Discharge Referral Referred to [facility] No
--- NOTE | 2018-09-12 10:24 | PN ---
Teaching Attending Note Name of Resident: Angie Dos Santos ATTENDING PHYSICIAN STATEMENT I saw and evaluated the patient. I reviewed the resident's note and discussed the case with the resident. I agree with the resident's findings and plan as documented with exceptions below. SUBJECTIVE: Patient seen and examined. being assisted out of bathroom, weak but no acute distress. Breathing better, no new complaints. OBJECTIVE: Vital Signs Period Temp Pulse Resp BP Sys/Alvares Pulse Ox Last 24 Hr 97.3 F-98.0 F 52-61 20-20 127-156/57-75 97 Intake & Output 09/09/18 09/10/18 09/11/18 09/12/18 23:59 23:59 23:59 23:59 Intake Total 2059 1559 1939 Balance 2059 1559 1939 Weight 131 lb 8 oz 132 lb 7 oz 135 lb 6.4 oz General: no respiratory distress Chest: improved air entry, few bibasilar rales R>L, no wheezing noted Abdomen: soft, NT Extremities: bilateral dressing (Further exam deferred as just changed by Dr. Ngo) Home Medications Medication Instructions Recorded Ascorbic Acid [Vitamin C] 500 mg PO DAILY 01/21/15 Calcium/Magnesium/Vit D3 [Calcium 1 each PO BID 01/21/15 500 mg Tablet] Biotin 5,000 mcg PO DAILY 05/14/15 Sennosides [Senna -] 1 tab PO PRN PRN 05/14/15 Levothyroxine [Synthroid -] 0.025 mcg PO DAILY 02/15/17 Silver Sulfadiazine 1% Top Cr 1 applic TP DAILY 7 Days #1 jar 08/01/18 [Silvadene -] Cetirizine HCl [Zyrtec -] 10 mg PO DAILY 08/14/18 Cholecalciferol (Vitamin D3) 1,000 unit PO DAILY 08/14/18 [Vitamin D -] Digoxin [Lanoxin -] 0.125 mg PO ASDIR 08/14/18 Gabapentin [Neurontin -] 300 mg PO DAILY 08/14/18 Carvedilol [Coreg -] 25 mg PO BID 08/31/18 Saccharomyces Boulardii [Florastor] 250 mg PO BID 09/01/18 Albuterol 2.5/Ipratropium 0.5 1 amp NEB RQID amp 09/04/18 [Duoneb -] Albuterol Sulfate 0.042% [Ventolin 1 amp NEB Q4H PRN amp 09/04/18 0.042% (Half-Strength) -] Furosemide [Lasix -] 20 mg PO DAILY tablet 09/12/18 Lactobacillus Acidophilus [Bacid -] 1 tab PO DAILY tab 09/12/18 Lisinopril [Prinivil] 10 mg PO BID tablet 09/12/18 Pantoprazole Sodium [Protonix -] 20 mg PO DAILY tablet.ec 09/12/18 Prednisone See Taper PO DAILY 12 Days #42 09/12/18 tablet Warfarin Sodium [Coumadin] 2.5 mg PO DAILY 1 Days #1 tablet 09/12/18 Active Medications Acetylcysteine (Mucomyst 20 Oral / Inh Use Only*) 200 mg NEB RQID [facility] Last Admin: 09/11/18 20:50 Dose: 200 mg Albuterol Sulfate (Ventolin 0.042trength) -) 1 amp NEB Q4H PRN PRN Reason: SHORT OF BREATH/WHEEZING Last Admin: 09/11/18 20:50 Dose: 1 amp Ascorbic Acid (Vitamin C -) 500 mg PO DAILY [facility] Last Admin: 09/12/18 10:05 Dose: 500 mg Calcium Carbonate/Cholecalciferol (Os-Wil 500+D -) 1 tab PO BID [facility] Last Admin: 09/12/18 10:07 Dose: 1 tab Carvedilol (Coreg -) 12.5 mg PO BID [facility] Last Admin: 09/12/18 10:08 Dose: 12.5 mg Cholecalciferol (Vitamin D3 -) 1,000 unit PO DAILY [facility] Last Admin: 09/12/18 10:07 Dose: 1,000 unit Digoxin (Lanoxin -) 0.125 mg PO Q2D@1000 [facility] Last Admin: 09/11/18 11:10 Dose: 0.125 mg Furosemide (Lasix -) 20 mg PO DAILY [facility] Last Admin: 09/12/18 10:07 Dose: 20 mg Gabapentin (Neurontin -) 300 mg PO DAILY [facility] Last Admin: 09/12/18 10:07 Dose: 300 mg Guaifenesin (Mucinex -) 1,200 mg PO BID [facility] Last Admin: 09/12/18 10:05 Dose: 1,200 mg Lactobacillus Acidophilus (Bacid -) 1 tab PO DAILY [facility] Last Admin: 09/12/18 10:07 Dose: 1 tab Levothyroxine Sodium (Synthroid -) 25 mcg PO DAILY@0700 [facility] Last Admin: 09/12/18 06:56 Dose: 25 mcg Lisinopril (Prinivil) 10 mg PO BID [facility] Last Admin: 09/12/18 10:07 Dose: 10 mg Loratadine (Claritin -) 10 mg PO DAILY [facility] Last Admin: 09/12/18 10:06 Dose: 10 mg Pantoprazole Sodium (Protonix -) 20 mg PO DAILY [facility] Last Admin: 09/12/18 10:05 Dose: 20 mg Prednisone (Deltasone -) 60 mg PO DAILY [facility] Last Admin: 09/12/18 10:06 Dose: 60 mg Senna (Senna -) 1 tab PO DAILY PRN PRN Reason: CONSTIPATION Silver Sulfadiazine (Silvadene -) 1 applic TP DAILY [facility] Last Admin: 09/11/18 11:17 Dose: 1 applic Warfarin Sodium (Coumadin -) 5 mg PO DAILY@1800 [facility] Last Admin: 09/11/18 17:37 Dose: 5 mg Laboratory Results - last 24 hr 09/11/18 09/12/18 09/12/18 07:00 06:00 06:00 WBC 18.5 H RBC 4.41 Hgb 13.7 Hct 41.7 MCV 94.6 MCH 31.1 MCHC 32.9 RDW 15.5 Plt Count 267 MPV 8.4 Absolute Neuts (auto) 17.5 H Neutrophils % 94.8 H Neutrophils % (Manual) 94.0 H Band Neutrophils % 0.0 Lymphocytes % 2.0 L D Lymphocytes % (Manual) 4.0 L Monocytes % 3.1 L Monocytes % (Manual) 2 L Eosinophils % 0.0 Eosinophils % (Manual) 0.0 Basophils % 0.1 Basophils % (Manual) 0.0 Myelocytes % (Man) 0 Promyelocytes % (Man) 0 Blast Cells % (Manual) 0 Nucleated RBC % 0 Metamyelocytes 0 Hypochromia 0 Toxic Granulation 0 Dohle Bodies 0 Platelet Estimate Normal Polychromasia 0 Poikilocytosis 0 Basophilic Stippling 0 Anisocytosis 0 Microcytosis 0 Macrocytosis 0 Spherocytes 0 Sickle Cells 0 Target Cells 0 Tear Drop Cells 0 Ovalocytes 0 Stomatocytes 0 Helmet Cells 0 Bills-[place] Bodies 0 [place] Rings 0 Ney Cells 0 Acanthocytes (Spur) 0 Rouleaux 0 Fragmented RBCs 0 Schistocytes 0 PT with INR 22.30 H INR 1.88 H Sodium Potassium Chloride Carbon Dioxide Anion Gap BUN Creatinine Creat Clearance w eGFR Random Glucose Calcium Total Bilirubin AST ALT Alkaline Phosphatase Total Protein Albumin 09/12/18 06:00 WBC RBC Hgb Hct MCV MCH MCHC RDW Plt Count MPV Absolute Neuts (auto) Neutrophils % Neutrophils % (Manual) Band Neutrophils % Lymphocytes % Lymphocytes % (Manual) Monocytes % Monocytes % (Manual) Eosinophils % Eosinophils % (Manual) Basophils % Basophils % (Manual) Myelocytes % (Man) Promyelocytes % (Man) Blast Cells % (Manual) Nucleated RBC % Metamyelocytes Hypochromia Toxic Granulation Dohle Bodies Platelet Estimate Polychromasia Poikilocytosis Basophilic Stippling Anisocytosis Microcytosis Macrocytosis Spherocytes Sickle Cells Target Cells Tear Drop Cells Ovalocytes Stomatocytes Helmet Cells Bills-[place] Bodies [place] Rings [place] Cells Acanthocytes (Spur) Rouleaux Fragmented RBCs Schistocytes PT with INR INR Sodium 139 Potassium 3.5 Chloride 100 Carbon Dioxide 36 H Anion Gap 4 L BUN 37 H Creatinine 0.7 Creat Clearance w eGFR 79.15 Random Glucose 167 H Calcium 8.6 Total Bilirubin 0.4 AST 17 ALT 23 Alkaline Phosphatase 86 Total Protein 5.9 L Albumin 2.3 L Microbiology 09/08/18 09:40 Sputum - Expectorated Gram Stain - Final 09/08/18 09:40 Sputum - Expectorated Sputum Culture - Final Yeast Like Organism 09/06/18 11:24 Throat Throat Culture - Final NO BETA HEMOLYTIC STREPTOCOCCI ISOLATED 08/31/18 13:15 Blood - Peripheral Venous Blood Culture - Final NO GROWTH AFTER 5 DAYS INCUBATION 08/31/18 13:15 Blood - Peripheral Venous Blood Culture - Final NO GROWTH AFTER 5 DAYS INCUBATION 09/02/18 11:00 Nares - Right Nares MRSA Screen - Final NO MRSA ISOLATED 09/02/18 11:00 Nares - Left Nares MRSA Screen - Final NO MRSA ISOLATED 08/31/18 15:51 Urine - Urine - Catheterized Urine Culture - Final NO GROWTH OBTAINED 09/01/18 13:00 Urine For Antigen Detection Legionella Antigen - Final 09/01/18 13:00 Urine For Antigen Detection Streptococcus pneumoniae Antigen (M - Final ASSESSMENT AND PLAN: 87 yof with PMHx of afib on coumadin, chronic systolic HF (EF 45%), s/p PPM/ICD , herpes, HTN, CKD, recent excisional debridement/skin grafting to bilateral lower extremity 3rd degree [place], discharged to rehab on 08/21/2018, sent from [facility] with hypoxia found with RLL HCAP -Acute RLL HCAP with sepsis -Suspect acute on chronic systolic heart failure exacerbation Ef 45% -Acute bronchitis -Acute hypoxic respiratory failure, likely from above -Elevated troponin, suspect demand NSTEMI type II from above, r/o ACS -Uncontrolled HTN,suspect from respiratory distress+/- anxiety -Hypokalemia -Recent excisional debridement/Skin grafting to bilateral lower extremity 3rd degree [place] -Atrial fibrillation on coumadin -s/p PPM/ICD -CKD stage II -Herpes Shingles -Chronic anemia -Hypothyroidism Plan: Clinically improved. Finished course of zosyn/zithromax. Cardiology/pulmonary/ID input noted. Coreg decreased. decrease lisinopril to 5 mg BID with eventual plan to transition to 2.5 mg BID once off prednisone. Digoxin every other day. INR Noted, Coumadin 5 mg tonight with INR check tomorrow. WBC high, suspect from steroid induced leucocytosis. Continue mucomyst/mucinex/nebs prn. Prednisone taper. Lasix 20 mg daily. Wound care done by Dr. Ngo, outpatient follow up with her in wound care. Plan for d/c to SNF today. Discussed with patient and nursing. All questions answered.
[2018-09-12 10:28] VITALS: BMI 21.1
--- NOTE | 2018-09-12 10:44 | DS ---
Physical Exam: SUBJECTIVE: Patient seen and examined. The patient is feeling well. OBJECTIVE: Vital Signs Period Temp Pulse Resp BP Sys/Alvares Pulse Ox Last 24 Hr 97.3 F-98.0 F 52-61 20-20 127-156/57-75 97 PHYSICAL EXAM GENERAL: The patient is awake, alert, and fully oriented, in no acute distress, on NC. HEAD: Normal with no signs of trauma. EYES: PERRL, extraocular movements intact. ENT: Oropharynx clear without exudates, moist mucous membranes. NECK: Trachea midline, full range of motion, supple. LUNGS: Breath sounds: crackles, rhonchi b/l, no accessory muscle use. HEART: Irregular rate and rhythm, S1, S2 without murmur, rub or gallop. ABDOMEN: Soft, nontender, nondistended, normoactive bowel sounds, no guarding. EXTREMITIES: 2+ pulses, warm, well-perfused, no edema, dressing applied, 8 sm wound on left alves, well healing, small wound healing on right outer alves, no discharge, tenderness. NEUROLOGICAL: Normal speech, gait not observed. PSYCH: Normal mood, normal affect. SKIN: Warm, dry, normal turgor, no rashes. LABS Laboratory Results - last 24 hr 09/11/18 09/12/18 09/12/18 07:00 06:00 06:00 WBC 18.5 H RBC 4.41 Hgb 13.7 Hct 41.7 MCV 94.6 MCH 31.1 MCHC 32.9 RDW 15.5 Plt Count 267 MPV 8.4 Absolute Neuts (auto) 17.5 H Neutrophils % 94.8 H Neutrophils % (Manual) 94.0 H Band Neutrophils % 0.0 Lymphocytes % 2.0 L D Lymphocytes % (Manual) 4.0 L Monocytes % 3.1 L Monocytes % (Manual) 2 L Eosinophils % 0.0 Eosinophils % (Manual) 0.0 Basophils % 0.1 Basophils % (Manual) 0.0 Myelocytes % (Man) 0 Promyelocytes % (Man) 0 Blast Cells % (Manual) 0 Nucleated RBC % 0 Metamyelocytes 0 Hypochromia 0 Toxic Granulation 0 Dohle Bodies 0 Platelet Estimate Normal Polychromasia 0 Poikilocytosis 0 Basophilic Stippling 0 Anisocytosis 0 Microcytosis 0 Macrocytosis 0 Spherocytes 0 Sickle Cells 0 Target Cells 0 Tear Drop Cells 0 Ovalocytes 0 Stomatocytes 0 Helmet Cells 0 Bills-Beaver Bodies 0 [place] Rings 0 [address] Cells 0 Acanthocytes (Spur) 0 Rouleaux 0 Fragmented RBCs 0 Schistocytes 0 PT with INR 22.30 H INR 1.88 H Sodium Potassium Chloride Carbon Dioxide Anion Gap BUN Creatinine Creat Clearance w eGFR Random Glucose Calcium Total Bilirubin AST ALT Alkaline Phosphatase Total Protein Albumin 09/12/18 06:00 WBC RBC Hgb Hct MCV MCH MCHC RDW Plt Count MPV Absolute Neuts (auto) Neutrophils % Neutrophils % (Manual) Band Neutrophils % Lymphocytes % Lymphocytes % (Manual) Monocytes % Monocytes % (Manual) Eosinophils % Eosinophils % (Manual) Basophils % Basophils % (Manual) Myelocytes % (Man) Promyelocytes % (Man) Blast Cells % (Manual) Nucleated RBC % Metamyelocytes Hypochromia Toxic Granulation Dohle Bodies Platelet Estimate Polychromasia Poikilocytosis Basophilic Stippling Anisocytosis Microcytosis Macrocytosis Spherocytes Sickle Cells Target Cells Tear Drop Cells Ovalocytes Stomatocytes Helmet Cells Bills-Beaver Bodies [place] Rings Ney Cells Acanthocytes (Spur) Rouleaux Fragmented RBCs Schistocytes PT with INR INR Sodium 139 Potassium 3.5 Chloride 100 Carbon Dioxide 36 H Anion Gap 4 L BUN 37 H Creatinine 0.7 Creat Clearance w eGFR 79.15 Random Glucose 167 H Calcium 8.6 Total Bilirubin 0.4 AST 17 ALT 23 Alkaline Phosphatase 86 Total Protein 5.9 L Albumin 2.3 L HOSPITAL COURSE: 87 year old female with past medical history of afib on coumadin, chronic systolic HF (EF 45%), s/p PPM/ICD, herpes, HTN, CKD, sustained 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 lower extremities, while sitting next to heater a month ago, s/p wound vacc and skin graft, currently in rehab. She presented to the hospital with cough, white sputum production, gurgling noises, shortness of breath, lethargy, poor oral intake x1 day. Denied chest pain, palpitations, leg swelling is improved as per daughter. Last week patient was at [facility], sent for CXR that was negative. This week she was seen by plastic surgeon, wound care and was given Augmentin, she has taken it for two days. ER course was notable for: CXR +PNA. Over the course of her hospitalization, she finished course of zosyn and zithromax. Cardiology/pulmonary/IDwere consulted. We continued to monitor her INR on Coumadin, steroids, continued mucomyst/mucinex/nebs prn, Lasix. She was also seen by Dr Ngo, dressing was changed, graft healed well. BP medications were adjusted with steroids during her stay. She improved clinically and was discharged to SNF. Date of Admission:08/31/18 Date of Discharge: 09/12/18 Minutes to complete discharge: 35 Discharge Summary Reason For Visit: WEAKNESS,ACUTE ON CHRONIC DIASTOLIC CHF,PNEUMONIA Current Active Problems Acute on chronic diastolic CHF (congestive heart failure) (Acute) Hypothyroid (Acute) Pneumonia (Acute) Condition: Stable - Instructions Diet, Activity, Other Instructions: Ms. Yuen, you have been treated in the hospital for pneumonia. Please continue taking the antibiotic and other prescribed medications as described below: Medications: Coumadin 5 mg today on and then check INR tomorrow. Once INR above 2, resume home dose of 2.5 mg daily Lisinopril 5 mg twice daily. It may be decreased to 2.5 mg twice a day when you stop Prednisone taper. Coreg has been decreased to 12.5 mg twice daily. Prednisone Taper: 60mg for two days (6 pills per day) 50mg for two days (5 pills per day) 40mg for two days (4 pills per day) 30mg for two days (3 pills per day) 20mg for two days (2 pills per day) 10 mg for 2 days (1 pill per day) Continue taking lasix 20mg daily for now till further instructed by Dr. Dao. Continue taking the rest of your medications as prescribed; including digoxin, levothyroxine WOUND CARE: Please keep legs elevated and keep wounds dry and follow up with Dr. Ngo in 3 -5 days for wound check. INSTRUCTIONS: Weigh yourself daily and notify doctor if weight gain > 3lbs in 2 days. Continued Chest physiotherapy twice daily. Incentive spirometry every hour as able. FOLLOW UP: INR CHECK ON 09/13/2018 AND FURTHER COUMADIN PER SNF DOCTOR 2 times a week a least Blood work to check your kidneys BMP (basic metabolic panel) in 1 week with your doctor. Follow up with Dr. Long after dc from rehab. Follow up with Dr. Dao in 1 week. Please continue to follow up with Dr. Ngo for wound care. Please note that you will need close monitoring of your fluid status and kidneys with your doctor and modeling director after discharge. If you experience any worsening of symptoms including chest pain, shortness of breath, fever, chills, please return to the emergency room. The Rehab MD should be aware that as prednisone dose falls her lisinopril may need to return to home levels of 2.5 mg BID Referrals: Silvestre Long MD [Primary Care Provider] - Ab Dao MD [Staff Physician] - Sharon Ngo MD [Staff Physician] - Disposition: LONG TERM FACILITY - Home Medications Comprehensive Discharge Medication List: Ambulatory Orders Ascorbic Acid [Vitamin C] 500 mg PO DAILY 01/21/15 Calcium/Magnesium/Vit D3 [Calcium 500 mg Tablet] 1 each PO BID 01/21/15 Biotin 5,000 mcg PO DAILY 05/14/15 Sennosides [Senna -] 1 tab PO PRN PRN 05/14/15 Levothyroxine [Synthroid -] 0.025 mcg PO DAILY 02/15/17 Silver Sulfadiazine 1% Top Cr [Silvadene -] 1 applic TP DAILY 7 Days #1 jar Cetirizine HCl [Zyrtec -] 10 mg PO DAILY 08/14/18 Cholecalciferol (Vitamin D3) [Vitamin D -] 1,000 unit PO DAILY 08/14/18 Gabapentin [Neurontin -] 300 mg PO DAILY 08/14/18 Saccharomyces Boulardii [Florastor] 250 mg PO BID 09/01/18 Albuterol 2.5/Ipratropium 0.5 [Duoneb -] 1 amp NEB RQID amp 09/04/18 Albuterol Sulfate 0.042% [Ventolin 0.042% (Half-Strength) -] 1 amp NEB Q4H PRN amp 09/04/18 Acetylcysteine Po/INH 20% [Mucomyst 20 Oral / INH Use Only*] 200 mg NEB RQID vial 09/12/18 Carvedilol [Coreg -] 12.5 mg PO BID tablet 09/12/18 Digoxin [Lanoxin -] 0.125 mg PO Q2D@1000 tablet 09/12/18 Furosemide [Lasix -] 20 mg PO DAILY tablet 09/12/18 Lactobacillus Acidophilus [Bacid -] 1 tab PO DAILY tab 09/12/18 Lisinopril 5 mg PO BID #30 tablet 09/12/18 Pantoprazole Sodium [Protonix -] 20 mg PO DAILY tablet.ec 09/12/18 Prednisone See Taper PO DAILY 12 Days #42 tablet 09/12/18 Warfarin Na [Coumadin -] 5 mg PO DAILY@1800 tablet 09/12/18 Problem List - Problems (1) Acute on chronic diastolic CHF (congestive heart failure) Code(s): I50.33 - ACUTE ON CHRONIC DIASTOLIC (CONGESTIVE) HEART FAILURE (2) Hypothyroid Code(s): E03.9 - HYPOTHYROIDISM, UNSPECIFIED (3) Pneumonia Code(s): J18.9 - PNEUMONIA, UNSPECIFIED ORGANISM (4) Pneumonia Code(s): J18.9 - PNEUMONIA, UNSPECIFIED ORGANISM (5) Acute renal insufficiency Code(s): N28.9 - DISORDER OF KIDNEY AND URETER, UNSPECIFIED (6) Anemia Code(s): D64.9 - ANEMIA, UNSPECIFIED Qualifiers: Other causes of anemia: acute posthemorrhagic Qualified Code(s): D62 - Acute posthemorrhagic anemia (7) Atrial fibrillation Code(s): I48.91 - UNSPECIFIED ATRIAL FIBRILLATION Qualifiers: Atrial fibrillation type: persistent Qualified Code(s): I48.1 - Persistent atrial fibrillation (8) Biventricular automatic implantable cardioverter defibrillator in situ Code(s): Z95.810 - PRESENCE OF AUTOMATIC (IMPLANTABLE) CARDIAC DEFIBRILLATOR (9) Dehydration Code(s): E86.0 - DEHYDRATION (10) Epistaxis Code(s): R04.0 - EPISTAXIS (11) Failure to thrive Code(s): PNV0038 - (12) Hypertension Code(s): I10 - ESSENTIAL (PRIMARY) HYPERTENSION Qualifiers: Hypertension type: essential hypertension Qualified Code(s): I10 - Essential (primary) hypertension (13) Shingles outbreak Code(s): B02.9 - ZOSTER WITHOUT COMPLICATIONS (14) Status post right hip replacement Code(s): Z96.641 - PRESENCE OF RIGHT ARTIFICIAL HIP JOINT (15) Supratherapeutic INR Code(s): R79.1 - ABNORMAL COAGULATION PROFILE (16) Syncope and collapse Code(s): R55 - SYNCOPE AND COLLAPSE (17) Systolic CHF Code(s): I50.20 - UNSPECIFIED SYSTOLIC (CONGESTIVE) HEART FAILURE Qualifiers: Heart failure chronicity: chronic Qualified Code(s): I50.22 - Chronic systolic (congestive) heart failure (18) Weakness Code(s): R53.1 - WEAKNESS This patient is new to me today: No Emergency Visit: Yes ED Registration Date: 08/31/18 Care time: The patient presented to the Emergency Department on the above date and was hospitalized for further evaluation of their emergent condition. Critical Care patient: No - Discharge Referral Referred to [facility] Med P.C.: No
[2018-09-12] MEDS: SILVER SULFADIAZINE 1% TOP CREAM 400 GM JAR TP SCH (10:58)
[2018-09-12 11:27] VITALS: TEMP 96.5
[2018-09-12 12:15] LABS: ANISOCYTOSIS 2+; MACROCYTOSIS 0; OVALOCYTE 1+; PLATELET ESTIMATE NORMAL
[2018-09-12 13:48] VITALS: BP 148/82; PULSE 53
== END 2018-09-12 14:16 | DRG 193 ==
LOC: JER 13:05 → JERBED 16:53 → J4W 18:56 → J5S 09-06 16:55
PROVIDERS: ADMIT Hospitalist; ATTEND Hospitalist
DX: J18.9 Pneumonia, unspecified organism (principal); I50.23 Acute on chronic systolic (congestive) heart failure; I13.0 Hypertensive heart and chronic kidney disease with heart failure and stage 1 through stage 4 chronic kidney disease, or unspecified chronic kidney disease; I24.8 Other forms of acute ischemic heart disease; I42.9 Cardiomyopathy, unspecified; E87.3 Alkalosis; I48.1 Persistent atrial fibrillation; N18.2 Chronic kidney disease, stage 2 (mild); I48.91 Unspecified atrial fibrillation; E83.39 Other disorders of phosphorus metabolism; E87.6 Hypokalemia; Z79.01 Long term (current) use of anticoagulants; E03.9 Hypothyroidism, unspecified; I27.20 Pulmonary hypertension, unspecified; I36.1 Nonrheumatic tricuspid (valve) insufficiency; I34.0 Nonrheumatic mitral (valve) insufficiency; D64.9 Anemia, unspecified; Z95.810 Presence of automatic (implantable) cardiac defibrillator; Z85.3 Personal history of malignant neoplasm of breast; Z87.891 Personal history of nicotine dependence; Z96.653 Presence of artificial knee joint, bilateral; Z96.642 Presence of left artificial hip joint; R62.7 Adult failure to thrive; J98.01 Acute bronchospasm; T17.290A Other foreign object in pharynx causing asphyxiation, initial encounter; X58.XXXA Exposure to other specified factors, initial encounter; Y93.89 Activity, other specified; Y92.230 Patient room in hospital as the place of occurrence of the external cause; Y99.8 Other external cause status
CPT/HCPCS: 11042; 29580-LT; 29581-LT; 29581-RT; 36415; 71045-TC-FY; 71250-TC; 80048; 80053; 80162; 81003; 82550; 83605; 83735; 83880; 84100; 84484; 85025; 85610; 85730; 87040; 87070; 87077; 87081; 87086; 87205; 87899; 93005; 93010; 94640; 94761; 97116-GP; 97161-GP; 99284-25; J0131

== ENCOUNTER → 2019-11-28 | Day surgery (SDC) | payer OTHER, MEDICARE ==
--- NOTE | 2019-12-03 15:39 | PATH ---
Surgical Pathology Report Patient Name: ASHIA CHRISTOPHER [facility]. Rec. #: [id number] /Age/Gender: 1930 (Age: 89) / F Account: [id number] Location: [facility] Taken: 11/28/2019 Received: 11/28/2019 Reported: 12/03/2019 Physicians: Meg Greco M.D. Specimen(s) Received A: LEFT BREAST SPECIMEN WITH DENSITY STEREOTACTIC BIOPSY B: RIGHT BREAST SPECIMEN WITH CALCIFICATIONS STEREOTACTIC BIOPSY C: RIGHT BREAST SPECIMEN WITHOUT CALCIFICATIONS STEREOTACTIC BIOPSY Clinical History A. Mammographic findings: Highly suspicious/malignant Stereotactic biopsy of left breast for breast density B. Clinical: Non-palpable lesion Mammographic findings: Microcalcification, suspicious Stereotactic biopsy of right breast for calcifications Final Diagnosis A. BREAST, LEFT, DENSITY, STEREOTACTIC BIOPSY: BENIGN BREAST TISSUE SHOWING STROMAL FIBROSIS. B. BREAST, RIGHT, CALCIFICATIONS, STEREOTACTIC BIOPSY: MINUTE FOCUS OF INVASIVE DUCTAL CARCINOMA, MODERATELY DIFFERENTIATED, MEASURING 1.5 MM IN GREATEST DIMENSION IN THIS MATERIAL. FOCAL DUCTAL CARCINOMA IN SITU (DCIS), SOLID TYPE, HIGH NUCLEAR GRADE WITH MODERATE NECROSIS. FOCI OF LYMPHOVASCULAR INVASION. FIBROADENOMA WITH ASSOCIATED COARSE STROMAL CALCIFICATIONS. ATYPICAL LOBULAR HYPERPLASIA (ALH). (SEE NOTE). Note: Immunohistochemical stains performed on block B at [place], [place] (IHCT [id number]) show the following results: vascular endothelial markers (CD31 & D2-40) highlight tumor emboli within lymphovascular channels (vWF immunostain is non-contributory). Myoepithelial immunohistochemical marker SMM-HC demonstrates the presence of myoepithelial cells in the focus of DCIS, however, the focus of invasive carcinoma cannot be evaluated for myoepithelial cells as it is no longer present on deeper sections (p40 immunostain is non-contributory). The foci of ALH are negative for E-cadherin. These findings support the diagnosis. Results of ER, SC, Her2 & Ki67 studies performed on this specimen (block B) at [place], [place] (IHCT [id number]) are as follows: ER (clone [id number] mouse monoclonal antibody by [employer]): _X_ Positive: > 90 % nuclear staining with strong intensity. PgR (clone16 mouse monoclonal antibody by [employer]): _X_ Positive: ~70 % nuclear staining with moderate to strong intensity. Her2 IHC (EP3 from [employer], formerly known as [id number], using [employer] Polymer Refine detection kit): 3+ (positive). Ki-67: 30-35% (high proliferative index). Comment: ER, SC, HER2 & Ki67 are been reported on foci of tumor emboli within lymphovascular channels as the focus of invasive carcinoma is no longer present on deeper sections. C. BREAST, RIGHT, WITHOUT CALCIFICATIONS, STEREOTACTIC BIOPSY: MINUTE FOCUS OF INVASIVE DUCTAL CARCINOMA, MODERATELY DIFFERENTIATED, MEASURING 1.5 MM IN GREATEST DIMENSION IN THIS MATERIAL. FOCAL DUCTAL CARCINOMA IN SITU (DCIS), SOLID TYPE, HIGH NUCLEAR GRADE WITH MODERATE NECROSIS. FOCI OF LYMPHOVASCULAR INVASION. ATYPICAL LOBULAR HYPERPLASIA (ALH). (SEE NOTE). Note: Immunohistochemical stains performed on block C at [place], [place] (IHCT [id number]) show the following results: D2-40 highlights tumor emboli within lymphovascular channels (CD31 & vWF immunostains are non-contributory). Myoepithelial immunohistochemical markers (SMM-HC & p40) demonstrate the following results: SMM-HC and p40 demonstrate the lack of myoepithelial cells in the focus of invasive carcinoma; SMM-HC demonstrates the presence of myoepithelial cells in the focus of DCIS. These findings support the diagnosis. Positive and negative controls (internal if applicable) show appropriate results. Formalin fixation and cold ischemic times are within current ASCO/CAP recommendations for ER, SC and Her2 testing. Electronically Signed Christel Malik M.D. Gross Description A. Received in formalin labeled "left breast biopsy with density," is a 3.4 x 2.2 x 0.3 cm aggregate of multiple mccloud-yellow, irregular to cylindrical portions of fibroadipose tissue. The formalin is filtered and the specimen is entirely submitted in 2 cassettes. Time to formalin fixation: 3 minutes Total formalin fixation time: Approximately 8 hours. B. Received in formalin labeled "right breast with calcifications," is a 2.7 x 2.2 x 0.3 cm aggregate of multiple mccloud-yellow, irregular to cylindrical portions of fibroadipose tissue. The formalin is filtered and the specimen is entirely submitted in one cassette. C. Received in formalin labeled "right breast without calcifications," is a 1.5 cm in length x 0.5 cm in diameter mccloud-yellow, cylindrical portion of fibroadipose tissue. The specimen is submitted in toto in one cassette. Time to formalin fixation: 10 minutes Total formalin fixation time: Approximately 7 hours. 11/28/2019 [facility]/28/2019
== END | disposition home or self-care (01) ==
LOC: FMAMMOTONE 08:33
PROVIDERS: ATTEND Surgery Surgical Oncology
PROC: 0HBV3ZX Excision of Bilateral Breast, Percutaneous Approach, Diagnostic (ICD-10-PCS; principal; 2019-11-28)
DX: C50.811 Malignant neoplasm of overlapping sites of right female breast (principal); Z17.0 Estrogen receptor positive status [ER+]; D24.1 Benign neoplasm of right breast; N60.32 Fibrosclerosis of left breast; N64.89 Other specified disorders of breast; N60.89 Other benign mammary dysplasias of unspecified breast; R92.8 Other abnormal and inconclusive findings on diagnostic imaging of breast
CPT/HCPCS: 19081; 19082; 76098-TC-FY; 87899; 88305-TC; A4648